=== PATIENT | female | born 1935 | race Caucasian/White ===

== ENCOUNTER 2024-03-03 14:27 | Inpatient (IN) | payer MEDICARE, OTHER, SELFPAY ==
[2024-03-03] VITALS (9 sets, daily range): BP systolic 96–164; BP diastolic 63–86; BMI 25.0; BMI 23.7
--- NOTE | 2024-03-03 11:07 | ED.GENMED ---
History of Present Illness
General
Chief Complaint: Rectal Bleeding
Time Seen by Provider: 03/03/24 10:54
Travel History
Have you had any contact with someone who has COVID-19?: No
Do you have any symptoms of coronavirus? Fever > 100 degrees, chills, cough, shortness of breath, sore throat, loss of taste or smell, muscle aches, or headache?: No
History of Present Illness
History of Present Illness:
HPI: The patient presents with painless rectal bleeding. This has been ongoing for the past 3 days. She is on Xarelto for atrial fibrillation. She thought her symptoms may be related to hemorrhoids however symptoms also occur before she even
wiped herself.
EXAM:
GENERAL: Well appearing in no distress
HEENT: Moist oral mucosa
CARDIOVASCULAR: No murmurs, normal heart rate, irregular rhythm
PULMONARY: No respiratory distress, breath sounds are clear and equal
ABDOMEN: Soft with no peritoneal signs, no tenderness, dried red blood noted on the underwear, no obvious significant external hemorrhoids, positive brownish-red stool
NEUROLOGIC: Excellent strength all extremities, no coordination deficits
PSYCHIATRIC: Appropriate mental status, normal insight and judgement
EXTREMITIES: Nontender, no edema, moves all extremities equally
SKIN: No rash, no lesions
TIME OF INITIAL ENCOUNTER: 11:05 AM
NUMBER AND COMPLEXITY OF PROBLEMS ADDRESSED AT THE ENCOUNTER
� Chronic conditions affecting care: On Xarelto for atrial fibrillation
� Acute Exacerbation and/or Progression of Chronic Illness: This is an acute problem
� Differential Diagnosis includes: Diverticular bleeding, hemorrhoidal bleeding, upper GI bleeding much less likely given the description of the bleeding
AMOUNT AND/OR COMPLEXITY OF DATA TO BE REVIEWED AND ANALYZED
� I performed an independent evaluation of and my interpretation is:
EKG: A-fib 67, leftward axis
CT: CTA shows active extravasation which is a small amount in the distal colon
X-rays:
Laboratory Studies: White count 6.2, hemoglobin 11.2, platelets 210,
Other:
� Review of other/old records: Last year hemoglobin was 12.8 however in the past her hemoglobin has actually lower than it was today as well
� Clinical information was obtained by an independent historian: None needed
� Prescriptions/Medications Considered but not given:
� Further testing considered but not performed:
RISK OF COMPLICATIONS AND/OR MORBIDITY OR MORTALITY OF PATIENT MANAGEMENT
� Social determinants of health affecting care: Patient resides at [facility]
� Discussion with other providers: Hospitalist for admission; I also spoke with Dr. Argueta who agrees with holding off on Kcentra and we will obviously hold the Xarelto
� Escalation of care including admission/observation vs risk of discharge considered: Patient presents with rectal bleeding on Xarelto. She is hemodynamically stable, hemoglobin nearly a year ago was 12.8 and currently is 11.2
however this is still near her baseline. She denies any pain.
Past History
Past History
ED Past Medical History: Arrthythmia, HTN and Other (DIVERTICULOSIS, tonic A. fib on Xarelto status post left humerus ORIF, syncope, hypertension, chronic hearing loss, cataracts)
Social History
Tobacco: Non-smoker
Alcohol: None
Drug: None
Personal:
Living: assisted living
Family History
Family History: Negative Diabetes, Hypertension or CAD
Phy Exam
Physical Exam
Physical Exam:
See HPI
Course
Orders/Labs/Results
Orders:
Orders
03/03/24 11:05
CT Angio Abd/Pelvis w/wo IV [CT Abd/pelvis Angio W/wo Iv] Urgent
Comment:
Reason For Exam: recurring frequent rectal bleeding on xarelto
03/03/24 11:10
Electrocardiogram (*1) Urgent
Reason for Study: Atrial Fibrillation
EKG- Treatment ONCE
03/03/24 11:11
Type+Screen Urgent
Complete Blood Count/With Diff Urgent
Comprehensive Metabolic Panel Urgent
03/03/24 14:06
Admit/Transfer Patient As Directed
Co-Sign Provider:
Level of Care: Inpatient admission
Assign to:: Medical/Surgical
Physician / Group: chela isbell
Diagnosis: Rectal bleeding on Xarelto
Reason for Hospitalization: Rectal bleeding on Xarelto
Expected length of stay greater than two midnights?: Yes
ELOS- Estimated Length of Stay in days: 3
I certify the patient meets the requirements for IP care: Yes
Code Status As Directed
Resuscitation Status: Do not resuscitate
Reached after discussion with pt or family/Healthcare POA: Yes
Based on pt advanced directive or healthcare POA form: Yes
Decision communicated with: Per patient
Consult Colorectal Surgery [ColoRectal Surgery Consult] Routine
Consulting Provider: Parminder Argueta
Was physician already notified: Yes
Reason for consult: Rectal bleeding on Xarelto
03/03/24 14:07
DNR Bracelet Application ONCE
03/03/24 Dinner
Clear Liquid
At Your Request: Full Participation
03/03/24 15:17
carboxymethylcellulose sodium 1 drop BOTH EYES DAILYPRN PRN
03/03/24 15:17
Activity As Directed
Activity Level: With Assistance
Comment: Uses rollator at baseline
Intake/ Output As Directed
Frequency: Per unit guidelines
Pneumatic Compression Sleeves As Directed
Type: Knee high
Vital Signs As Directed
Frequency: Per unit guidelines
Ot Eval And Treat Routine
Pt Eval And Treat Routine
Activity Level: As Tolerated
DX Deep Vein Thrombosis Video Routine
03/04/24 06:00
Basic Metabolic Panel IN AM
Complete Blood Count/With Diff IN AM
03/04/24 08:00
Atorvastatin [Lipitor] 10 mg PO DAILY
Bifidobacterium infantis [Align] 4 mg PO DAILY
Diltiazem Extended Release [Cardizem Cd] 120 mg PO DAILY
Furosemide [Lasix] 20 mg PO Q48H
03/05/24 06:00
Basic Metabolic Panel IN AM
Complete Blood Count/With Diff IN AM
Abnormal Lab Results
03/03/24
11:11
RBC 3.89 L 10^6/uL
(4.20-5.40)
Hgb 11.2 L g/dL
(12.0-16.0)
Hct 32.8 L %
(37.0-47.0)
RDW 15.0 H %
(11.5-14.5)
Monocytes % 9.6 H %
(1.7-9.3)
BUN 18 H mg/dl
(7-17)
03/03/24 11:11
03/03/24 11:11
Vital Signs
Initial and Last Documented VS:
Initial Vital Signs
Temp Resp
98.4 F 16
03/03/24 10:52 03/03/24 10:52
Last Documented Vital Signs
Temp Pulse Resp BP Pulse Ox
98.4 F 60 14 146/68 97
03/03/24 10:52 03/03/24 14:40 03/03/24 13:18 03/03/24 14:00 03/03/24 14:30
*Critical Care Note
Total Time (30-74mins, 75-104mins- exclusive of procedures): Not Applicable
ED Attending Note
-
Portions of this chart may have been created with voice recognition software.� Occasional wrong word or��sound alike� substitutions may have occurred due to the inherent limitations of voice recognition software.
Discharge Plan
Departure
Patient Disposition: Admit
Date of Disposition: 03/03/24
Time of Disposition: 13:38
Presentation/result/management discussed w/ accepting MD/DO: Hospitalist
Discharge Problem:
Acute lower gastrointestinal bleeding
Interventions
Interventions:
*Risk Screen - Suicide Last Done: 03/03/24 10:52
*General Assessment Last Done: 03/03/24 10:52
*Neglect/Abuse Screening Last Done: 03/03/24 10:52
ED- Fall Risk Assessment Last Done: 03/03/24 10:52
*ED COVID-19 Vaccine History Last Done: 03/03/24 10:52
*Nursing Disposition Last Done: 03/03/24 15:30
PF-Rhlkqh-Rrjjeuonud Assessment Last Done: 03/03/24 10:52
ED- Cardiac Assessment Last Done: 03/03/24 10:52
ED- Pulmonary Assessment Last Done: 03/03/24 10:52
Discharge Date and Time
Discharge Date/Time: 03/03/24 15:30
[2024-03-03 11:19] LABS: % Eosinophils 4.2 % (0-6); % Immature Granulocytes 0.2 % (0-0.5); % Lymphocytes 25.6 % (20.5-51.1); % Monocytes 9.6 % (1.7-9.3); % Neutrophils 59.4 % (42.2-75.2); Absolute Basophils 0.1 10^3/uL (0-0.2); Absolute Eosinophils 0.3 10^3/uL (0-0.7); Absolute Lymphocytes 1.6 10^3/uL (1.2-3.4); Absolute Monocytes 0.6 10^3/uL (0.1-0.6); Absolute Neutrophils 3.7 10^3/uL (1.4-6.5); Hematocrit 32.8 % (37.0-47.0); Hemoglobin 11.2 g/dL (12.0-16.0); Mean Corp Hgb Conc. 34.1 g/dL (33.0-37.0); Mean Corpuscular Hgb 28.8 pg (27.0-31.0); Mean Corpuscular Volume 84.3 fL (81.0-99.0); Mean Platelet Volume 8.6 fL (7.4-10.4); Nucleated Red Blood Cells % 0 %; Platelet Count 210 10^3/uL (130-400); Red Blood Cell Count 3.89 10^6/uL (4.20-5.40); White Blood Cell Count 6.2 10^3/uL (4.8-10.8)
[2024-03-03 11:50] LABS: ALT (SGPT) 12 U/L (0-35); AST (SGOT) 22 U/L (14-36); Albumin 3.6 g/dl (3.5-5.0); Alkaline Phosphatase 93 U/L (38-126); Blood Urea Nitrogen 18 mg/dl (7-17); Carbon Dioxide 28 mmol/L (22-30); Chloride 100 mmol/L (98-107); Estimated Creatinine Clearance 53 ml/min; Glucose 97 mg/dl (70-99); Potassium 4.4 mmol/L (3.5-5.1); Sodium 136 mmol/L (135-145); Total Bilirubin 0.8 mg/dl (0.2-1.3); Total Protein 6.8 g/dl (6.3-8.2); eGFR > 60.00
--- NOTE | 2024-03-03 13:38 | HPS.HSE ---
Addendum entered and electronically signed by Perez Roper MD 03/03/24 15:41:
seen and examined the patient
Had bleeding for 3 days, Still took Xarelto.
No dizziness, chest pain or shortness of breath. No abdominal pain.
I saw and examined the patient.
The SALES REPRESENTATIVE or PA's note was reviewed and I agree with the note.
Comment: CVS: S1-S2 normal
Chest: CTA B/L
Abdomen: Soft, NT / Bowel sounds present
Extremities: No edema, normal pulses
CRISIS MANAGER: Non focal exam
Rectal bleeding-today secondary to hemorrhoidal-internal
Hold Xarelto
Colorectal surgery evaluation appreciated
Monitor hemoglobin
Clears
Consider Anusol tomorrow
Called son, he says she has had on and off diarrhea for a while
will get stool studies
D/W RN at bed side
Original Note:
Family Physician
-
Family Physician: Wale Chang
Chief Complaint
-
Rectal bleeding
History of Present Illness
88 Year old female from [facility] living with bright red rectal bleeding x 2 days. The patient reports yesterday she had 2 episodes of bright liquid blood while attempting to have a bowel movement. She denies any stool with that at that
time. Today she states she had a very large solid bowel movement then it was preceded by liquid bright red blood. The pt is on xarelto for Afib. She reports taking her Xarelto yesterday evening 03/02/2024. She denies headache, lightheadedness
fever, chills, abd pain, nausea, vomiting, chest pain, palpitations, sob, cough, urinary symptoms.
She has past medical history of permanent Afib on xarelto, HTN ,DIVERTICULOSIS, status post left humerus ORIF, syncope, chronic hearing loss, cataracts chronic ambulatory dysfunction uses rollator at baseline
Medical History
Past Medical History
Past Medical History: Reports Arrhythmia (A. fib), GERD, HTN and Other (chronic hearing loss, cataracts, diverticulosis, skin CA, chronic ambulatory dysfunction uses Rollator at baseline)
Past Surgical History: Reports Gynocological (D&C), Orthopedic (ORIF left humerus, bilateral knee cartilage removal ) and Other (Cataract extraction )
Social History
Tobacco: Non-smoker
Alcohol: None
Drug: None
Personal:
Living: Jail ([facility])
Employment: Retired
Family History
Family History: Other (Mother age 89 old age prior history of stroke father age 89 old age)
Allergies / Home Medications
Allergies reflects when Allergies were last updated in [employer].
Home Medications with original date entered in [employer]
Allergy/Medication List:
Allergies
Allergy/AdvReac Type Severity Reaction Status Date / Time
latex Allergy Rash Verified 11/30/22 07:07
Home Medications
Bifidobacterium infantis 4 mg capsule (Align) 4 mg PO DAILY Gastrointestinal Issue 03/03/24
atorvastatin 10 mg tablet 10 mg PO DAILY High Cholesterol 03/03/24
carboxymethylcellulose sodium 1 % eye liquid gel drops 1 drp BOTH EYES DAILYPRN PRN dry eyes 03/03/24
diltiazem HCl 120 mg capsule,extended release 24 hr 120 mg PO DAILY Arrhythmia 03/03/24
furosemide 20 mg tablet 20 mg PO Q48H@0800 Fluid Retention/Swelling 03/03/24
rivaroxaban 20 mg tablet (Xarelto) 20 mg PO QPM Blood Clot Prevention/Tx 03/03/24
Review of Systems
-
History Source: Patient
A 12 point ROS was completed and negative except as noted: Yes
Constitutional: Denies Fever or Chills
EENT: Denies Sore Throat or Runny Nose
Respiratory: Denies Cough or Trouble Breathing
Cardiac: Denies Chest Pain, Diaphoresis, Palpitations or Syncope
Abdomen/GI: Reports Bloody Stools (Bright red x 3 episodes); Denies Abdominal Pain, Nausea, Vomiting, Diarrhea or Constipated
: Denies Dysuria, Frequency, Flank Pain, Incontinence, Difficulty Voiding or Urgency
Musculoskeletal: Denies Joint Pain or Edema
Skin: Denies Itching or Rash
Neurological: Denies Dizzy, Headache or Weakness
Endocrine: Reports No Symptoms
Hematologic/Lymphatic: Reports No Symptoms
Psych: Reports Calm
Physical Exam
Vital Signs
Vital Signs
Temp Pulse Resp BP Pulse Ox
98.4 F 58 14 124/82 97
03/03/24 10:52 03/03/24 13:18 03/03/24 13:18 03/03/24 13:00 03/03/24 13:15
Physical Exam
General: No Apparent Distress, Comfortable and Conversant; No Pain, Fever or Chills
HEENT: NormoCephalic, Anicteric, Moist mucous membranes, PERRLA, [place] Conjunctivae and No Ptosis
Respiratory: Clear; No Wheezes, Rales or Rhonchi
Cardiac: S1/S2 and Irregular Rhythm (A-fib 67 bpm); No Murmur, Rub, Gallop or Peripheral Edema
Breast: Deferred by me
GI: Soft, Non Tender, Non Distended, Normal Bowel Sounds and No Hepatosplenomegaly
Rectal: Hem Positive (Reddish-brown stool per ER)
Genito-urinary: Deferred by me
Musculoskeletal: No Clubbing, No Cyanosis and No Edema
Skin: Warm and Dry; No Rash
Neuro: AO x 3, No Motor Deficits, Nonfocal/grossly intact, Cranial Nerves Intact and No Sensory Deficits; No Slurred Speech, Facial Droop or Tremors
Psych: Calm
Laboratory Results
-
03/03/24 11:11
03/03/24 11:11
Laboratory Results
Total Bilirubin 0.8 mg/dl (0.2-1.3) 03/03/24 11:11
AST 22 U/L (14-36) 03/03/24 11:11
ALT 12 U/L (0-35) 03/03/24 11:11
Alkaline Phosphatase 93 U/L (38-126) 03/03/24 11:11
Data Reviewed
-
CT Scan: Report Reviewed by me
Lab Data: Labs Reviewed by me
Impression/Plan
-
Impression/plan:
Admit to Med surg
#Rectal bleeding with extravasation in distal rectum possibly 2/2 to Internal hemorrhoids
- hgb 11.2
- Hold Xarelto
- consult [facility] rectal surgery -Dr. Argueta aware
-Clear liquid diet
-CBC in a.m.
-Monitor for any additional rectal bleeding
-PT/OT/case management consult
CtA abdomen /pelvis
1. Small volume active contrast extravasation along the distal rectum as above, probably related to internal hemorrhoids.
2.. Advanced calcific atherosclerotic changes of the aorta and major branches without aneurysmal dilation. 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
3. Bilateral renal cysts and probable cysts.
4. Diverticulosis without diverticulitis.
5. 4 cm simple fluid attenuation right adnexal cyst. There was a right adnexal cyst present, slightly smaller, on the February 2013 examination.
If there is clinical concern, could be further evaluated with follow-up pelvic ultrasound.
#Afib permanent
-cont Cardizem 120 mg daily
- Hold Xarelto
EKG: Afib 67 bpm, qtc 426 ms
2D echo 06/27/2021 : EF 55 to 60%, normal LVS, LVSF, no wall abnormalities, mild dilated left atrial size, trace aortic regurg, moderate TR
#Htn - benign
-cont cardizem 120 mg daily, furosemide 20 mg every 48 H
#HLD
- cont atorvastatin 10 mg daily
#Gerd
- no reported meds
#Diverticulosis hx
-Continue align 4 mg daily
#Chronic ambulatory dysfunction
- uses rollator at baseline
dvt prop
- scd's hold current Xarelto
Full code
--- NOTE | 2024-03-03 14:03 | CON.CRS ---
Consultation
-
Date/Time Consultation Requested: 03/03/2024, 13:30
Date/Time Consultation Performed: 03/03/2024, 14:20
Requesting Provider: Lambert Dillard MD
Performing Provider: Parminder Argueta MD
Reason for Consultation: rectal bleeding
Medical History
-
Chief Complaint: rectal bleeding
History of Present Illness:
88 yo female with a PMH of afib on Xarelto presents to the ER due to rectal bleeding for two days. This occurred when attempting to have a bowel movement. Today she had a large stool which caused a significant amount of blood, which promoted her to
come to the ER. Her last dose of Xarelto was yesterday 03/02/24 PM. She states she has never had bleeding like this before. She may have had diverticulitis in the past, but she is not sure.
Her last colonoscopy was in [address] Bell which showed diverticulosis in the sigmoid colon and three polyps were removed.
In her ER, her hemoglobin is 11.2. CTA A/P shows small volume active contrast extravasation along the distal rectum as above, probably related to internal hemorrhoids and diverticulosis in the sigmoid colon. We have been consulted for further
surgical opinion.
Past Medical History
Past Medical History: Arrhythmias (afib), GERD, HTN and Other (chronic hearing loss, cataracts, diverticulosis, skin CA, chronic ambulatory dysfunction )
Past Surgical History: Gynecological (D&C) and Other (ORIF left humerus, bilateral knee cartilage removal , cataracts)
Social History
Tobacco: Non-Smoker
Alcohol: None
Drug: None
Living: Prison ([place])
Employment: Retired
Family History
Family History: Reviewed & Not Pertinent
Allergies / Home Medications
Allergy/AdvReac Type Severity Reaction Status Date / Time
latex Allergy Rash Verified 11/30/22 07:07
�Medication �Instructions �Recorded �Confirmed �Type
Bifidobacterium infantis 4 mg 4 mg PO DAILY Gastrointestinal 03/03/24 03/03/24 History
capsule (Align) Issue
atorvastatin 10 mg tablet 10 mg PO DAILY High Cholesterol 03/03/24 03/03/24 History
carboxymethylcellulose sodium 1 % 1 drp BOTH EYES DAILYPRN PRN dry 03/03/24 03/03/24 History
eye liquid gel drops eyes
diltiazem HCl 120 mg 120 mg PO DAILY Arrhythmia 03/03/24 03/03/24 History
capsule,extended release 24 hr
furosemide 20 mg tablet 20 mg PO Q48H@0800 Fluid 03/03/24 03/03/24 History
Retention/Swelling
rivaroxaban 20 mg tablet (Xarelto) 20 mg PO QPM Blood Clot 03/03/24 03/03/24 History
Prevention/Tx
Review of Systems
-
History Source: Patient
Abdomen/GI: Other (rectal bleeding)
A 10 point review of systems was completed, and was negative except as per HPI.
Physical Exam
Vital Signs
Temp 98.4 F 03/03/24 10:52
Pulse 58 03/03/24 13:18
Resp Rate 14 03/03/24 13:18
Blood pressure 124/82 03/03/24 13:00
SaO2 97 03/03/24 13:15
03/02/24 03/03/24 03/04/24
06:59 06:59 06:59
Actual Weight 70.2 kg
Body Mass Index (BMI) 25.0
Lab Results / Allergies
03/03/24 11:11
03/03/24 11:11
WBC 6.2 10^3/uL (4.8-10.8) 03/03/24 11:11
Hgb 11.2 g/dL (12.0-16.0) L 03/03/24 11:11
Hct 32.8 % (37.0-47.0) L 03/03/24 11:11
Plt Count 210 10^3/uL (130-400) 03/03/24 11:11
Abs Immat Gran (auto) 0.0 10^3/uL (0-0.05) 03/03/24 11:11
Neutrophils % 59.4 % (42.2-75.2) 03/03/24 11:11
Allergy/AdvReac Type Severity Reaction Status Date / Time
latex Allergy Rash Verified 11/30/22 07:07
Physical Exam
General: Well Developed, Well Nourished and No Apparent Distress
GI: Soft, Non Tender and Non Distended
Rectal: Other (External and some prolapsing internal hemorrhoids noted on exam, no blood on fingertip, no stool noted in rectal vault, no masses noted)
Skin: Warm and Dry
Neuro: AO x 3
Psych: Calm
Data Reviewed
-
Labs: Labs Reviewed by me, Discussed with Physician and Discussed with Patient
Old Records: Reviewed
Assessment / Plan
-
Assessment: 88 yo female with a PMH of afib on Xarelto with BRB per rectum x 2 days with external and prolapsing internal hemorrhoids found on exam.
Plan:
1. Hold Xarelto today.
2. NPO after midnight. If she continues to bleed, she may require an exam under anesthesia tomorrow in the OR with Dr. Argueta.
3. Eventual colonoscopy - she is due.
4. Will follow.
--- NOTE | 2024-03-03 17:04 | PTCARENOTE ---
Received patient from ED AAOx3. Pt CANTWE[place]. Pt oriented to room. Tolerated clear Liquids. Pt offered no complaints. Made patient comfortable. Cont to assess patient status.
[2024-03-04 05:34] LABS: % Basophils 1.3 % (0-2); % Eosinophils 7.8 % (0-6); % Immature Granulocytes 0.2 % (0-0.5); % Lymphocytes 27.9 % (20.5-51.1); % Monocytes 10.3 % (1.7-9.3); % Neutrophils 52.5 % (42.2-75.2); Absolute Basophils 0.1 10^3/uL (0-0.2); Absolute Eosinophils 0.4 10^3/uL (0-0.7); Absolute Lymphocytes 1.5 10^3/uL (1.2-3.4); Absolute Monocytes 0.6 10^3/uL (0.1-0.6); Absolute Neutrophils 2.9 10^3/uL (1.4-6.5); Hematocrit 32.6 % (37.0-47.0); Hemoglobin 10.9 g/dL (12.0-16.0); Mean Corp Hgb Conc. 33.4 g/dL (33.0-37.0); Mean Corpuscular Hgb 28.5 pg (27.0-31.0); Mean Corpuscular Volume 85.1 fL (81.0-99.0); Nucleated Red Blood Cells % 0 %; Platelet Count 202 10^3/uL (130-400); Red Blood Cell Count 3.83 10^6/uL (4.20-5.40); Red Cell Dist. Width 14.7 % (11.5-14.5); White Blood Cell Count 5.5 10^3/uL (4.8-10.8)
[2024-03-04 05:55] LABS: Blood Urea Nitrogen 11 mg/dl (7-17); Calcium 9.2 mg/dl (8.4-10.2); Carbon Dioxide 27 mmol/L (22-30); Chloride 100 mmol/L (98-107); Estimated Creatinine Clearance 53 ml/min; Glucose 95 mg/dl (70-99); Potassium 3.6 mmol/L (3.5-5.1); Sodium 135 mmol/L (135-145); eGFR > 60.00
[2024-03-04 07:25] VITALS: BP 149/75
[2024-03-04 08:11] VITALS: BP 149/75
[2024-03-04] MEDS: CARDIZEM CD 120 MG PO (09:30)
[2024-03-04] MEDS: LIPITOR 10 MG PO (09:31)
[2024-03-04] MEDS: VISBIOME 1 CAP PO (09:31)
[2024-03-04] MEDS: FLUSH (NSS) 1 FLUSH IV (09:31)
[2024-03-04] MEDS: LASIX 20 MG PO (09:31)
[2024-03-04 09:32] VITALS: BMI 23.7
--- NOTE | 2024-03-04 09:35 | W.PN.HOSP.TC ---
Addendum entered and electronically signed by Dawit Toscano MD 03/11/24 15:58:
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
Original Note:
Today's Communication/Plan
-
Follow for any further rectal bleeding. Follow H&H. Continue to hold Xarelto.
Advance diet per colorectal surgery.
PT OT eval
Assessment / Plan
Assessment / Plan
#Rectal bleeding with extravasation in distal rectum possibly 2/2 to Internal hemorrhoids
-Hemoglobin 10.9 which is not a significant drop. No further ongoing rectal bleeding.
-Appreciate colorectal surgery input. Following with conservative management. Continue with Anusol treatments.
- Hold Xarelto
- on Clear liquid diet. Will advance diet if no planned interventions.
-Monitor for any additional rectal bleeding
-PT/OT/case management consult
CtA abdomen /pelvis
1. Small volume active contrast extravasation along the distal rectum as above, probably related to internal hemorrhoids.
2.. Advanced calcific atherosclerotic changes of the aorta and major branches without aneurysmal dilation. 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
3. Bilateral renal cysts and probable cysts.
4. Diverticulosis without diverticulitis.
5. 4 cm simple fluid attenuation right adnexal cyst. There was a right adnexal cyst present, slightly smaller, on the February 2013 examination.
If there is clinical concern, could be further evaluated with follow-up pelvic ultrasound.
#Afib permanent
-cont Cardizem 120 mg daily
-Rate controlled
- Hold Xarelto
EKG on adx: Afib 67 bpm, qtc 426 ms
2D echo 06/27/2021 : EF 55 to 60%, normal LVS, LVSF, no wall abnormalities, mild dilated left atrial size, trace aortic regurg, moderate TR
#Htn - benign
-cont cardizem 120 mg daily, furosemide 20 mg every 48 H
#HLD
- cont atorvastatin 10 mg daily
#Gerd
- no reported meds
#Diverticulosis hx
-Continue align 4 mg daily
#Chronic ambulatory dysfunction
- uses rollator at baseline
dvt prop
- scd's hold current Xarelto
Full code
Anticipated Discharge: Within 24 hours
Subjective/Interval History
-
Date of Service: March 04, 2024
No further rectal bleeding. Feeling weak due to not being out of bed.
Denies any nausea vomiting. No abdominal pain.
No shortness of breath or chest pain.
Objective Data
-
Labs:
Laboratory Results
03/04/24
04:50
WBC 5.5
Hgb 10.9 L
Hct 32.6 L
Plt Count 202
Sodium 135
Potassium 3.6
Chloride 100
Carbon Dioxide 27
BUN 11
Creatinine 0.7
Glucose 95
Calcium 9.2
Vital Signs:
Vital Signs
Temp Pulse Resp BP Pulse Ox
97.3 F 62 16 149/75 95
03/04/24 07:25 03/04/24 09:30 03/04/24 07:25 03/04/24 09:30 03/04/24 07:25
I&O
03/03/24 03/04/24 03/05/24
06:59 06:59 06:59
Intake Total 300 / 300
Balance 300 / 300
Review of Systems
-
Constitutional: Denies Fever or Chills
EENT: Denies Sore Throat
Respiratory: Denies Cough
Neuro: Denies Dizzy
Physical Exam
-
General: No Apparent Distress
HEENT: Moist Mucous Membranes
Respiratory: Clear to Auscultation
Cardiac: Regular Rhythm and S1/S2
GI: Soft, Nontender, Nondistended and Normal Bowel Sounds
Neuro: AO x 3
Psych: Calm; Negative Confused
Data Reviewed
-
Labs: Labs Reviewed by me
[2024-03-04 09:49] VITALS: BP 168/75
[2024-03-04 09:54] VITALS: BP 161/85; PULSE 80
--- NOTE | 2024-03-04 10:32 | W.PN.CRS1 ---
Today's Communication / Plan
-
hold xarelto one more day
no plans for OR
resume diet
f/u as outpatient
Assessment/Plan
-
Assessment: 88 yo female with a PMH of afib on Xarelto with BRB per rectum x 2 days with external and prolapsing internal hemorrhoids found on exam.
Plan:
1. Hold Xarelto one more day, okay to resume tomorrow.
2. No plans for OR given bleeding as stopped. Will resume diet.
3. Eventual colonoscopy - she is due.
4. Follow up in the office as an outpatient with Dr. Argueta. Discussed with patient. Will s/o, please contact us if further issues arise.
Subjective Data
Subjective Data
Date of Service: March 04, 2024
Patient states she has no further rectal bleeding. She denies rectal or abdominal pain. She has no complaints.
Objective Data
-
Vital Signs
Temp Pulse Resp BP Pulse Ox
97.3 F 62 16 149/75 95
03/04/24 07:25 03/04/24 09:30 03/04/24 07:25 03/04/24 09:30 03/04/24 07:25
Intake & Output
03/03/24 03/04/24 03/05/24
06:59 06:59 06:59
Intake Total 300 / 300
Balance 300 / 300
Intake:
Oral fluids 300 / 300
Other:
How many times incontinent 2
SATURATED amount urine
Lab Results
03/04/24 04:50
03/04/24 04:50
Physical Exam
-
General: No Acute Distress and AOx3
Abdomen: Soft, Non Distended and Non Tender
Skin: Warm and Dry
--- NOTE | 2024-03-04 10:37 | CM ---
Addendum entered by Manuela Luis 03/04/24 15:38:
referral made to [facility] for home physical therapy.hali is being dc home today.she will call either her son or [facility] to transport her home.patient signed imm letter.
Original Note:
met with patient at bedside.patientlives [place] in [facility] at [facility].she amb with a rw and needs assistance bathing. she has a sales vendor who comes weekly to assist with bathing.her son daisy east has poa.her pcp is dr belia villareal and she uses [facility].
patient with a past hx of afib on xarelto,htn,hld is adm with rectal bleeding.patient had a cta,eval by colorectal surgery.holding xarelto monitoring,hgb 10.9,on clears and advnce diet.seen by therapy who rec home pt.left vmm with keaton ruiz
wellness nurse at [facility] to find out who they uses for pt and whetr script is needed.plan home with home pt.
--- NOTE | 2024-03-04 15:25 | W.DS.TRANS ---
DC Summary - Desk Assistant
-
Discharge Instructions:
Discharge Diagnosis/Procedures rectal bleed suspected hemorrhoidal
Diet 2 Gram Sodium
Activity As tolerated
Driving Restrictions As prior to admission
Bathing Restrictions None
Instructions:
Stand-Alone Forms:
Changes to Home Medications: No
Discharge Medications:
DC Medications w/original date entered in [email or web address]
Bifidobacterium infantis 4 mg capsule (Align) 4 mg PO DAILY Gastrointestinal Issue 03/03/24
atorvastatin 10 mg tablet 10 mg PO DAILY High Cholesterol 03/03/24
carboxymethylcellulose sodium 1 % eye liquid gel drops 1 drp BOTH EYES DAILYPRN PRN dry eyes 03/03/24
diltiazem HCl 120 mg capsule,extended release 24 hr 120 mg PO DAILY Arrhythmia 03/03/24
furosemide 20 mg tablet 20 mg PO Q48H@0800 Fluid Retention/Swelling 03/03/24
rivaroxaban 20 mg tablet (Xarelto) 20 mg PO QPM Blood Clot Prevention/Tx 03/03/24
Home Medication Changes
Pending Results: No
--- NOTE | 2024-03-04 15:59 | VNURNOTE ---
Home Health Liaison met with patient at 1530 to discuss [facility] nurse/therapy, visits, schedule and homebound status. Patient is agreeable and understands that visits at home will be 2-3 x per week to assess and teach medical management.
[facility] brochure provided with contact information. Patient is aware that [facility] will contact her for start of care in 1-2 days after discharge from .
[facility] referral completed in [facility].
[2024-03-04 16:21] VITALS: BMI 23.7
[2024-03-04 16:28] VITALS: BP 114/68
--- NOTE | 2024-03-04 17:43 | W.DCSUMMARY ---
Discharge Summary
Discharge Data
Date of Admission: 03/03/24
Date of Discharge: 03/04/24
-
Pending Results: No
Hospital Course
Primary diagnosis:
Rectal bleeding with extravasation in distal rectum possibly 2/2 to Internal hemorrhoids
Secondary diagnosis:
Atrial fibrillation- permanent
Essential pretension
Hyperlipidemia
History of diverticulosis
Hospital course:
88-year-old female on Xarelto for A-fib presented with rectal bleeding for 3 days. She had no abdominal pain or nausea vomiting. She was hemodynamically stable. CT angiogram showed a blush in the lower rectum with likely hemorrhoidal source. Was
seen by colorectal surgery-digital exam of rectum showed mild prolapsing internal hemorrhoids. No blood staining externally noted. Digital exam of the rectum regular revealed normal tone and no obvious gross blood.
She had no further episodes in the hospital and her H&H was stable. She was put back on diet which she was tolerating. No need for surgical intervention at this point. Could resume anticoagulants after tomorrow.
Consultants on board:
Colorectal surgery-Brain Parikh
Discharge Plan
-
Patient Disposition: Home (Routine Discharge)
Discharge Diagnosis/Procedures: rectal bleed suspected hemorrhoidal
Diet: 2 Gram Sodium
Activity: As tolerated
Driving Restrictions: As prior to admission
Bathing Restrictions: None
Referrals:
Parminder Argueta MD [Active] - in three to four days (Will also need a colonoscopy)
Wale Chang MD [Family Provider] - in less than 1 week
Additional Discharge Medication Instructions: You will need to schedule a colonoscopy when you see Dr. Argueta, as you are due.
Prescriptions:
Continued
atorvastatin 10 mg Tablet
10 mg PO DAILY
diltiazem HCl 120 mg capsule,extended release 24hr
120 mg PO DAILY
furosemide 20 mg Tablet
20 mg PO Q48H@0800
carboxymethylcellulose sodium 1 % Drops, Liquid Gel
1 drp BOTH EYES DAILYPRN PRN (Reason: dry eyes)
Align 4 mg Capsule
4 mg PO DAILY
Held
Xarelto 20 mg Tablet
20 mg PO QPM
Hold Instructions: Resume on 03/06/24.
Discharge Orders:
Discharge Patient (As Directed); Ordered 03/04/24
Ordered By: Dawit Toscano
Discharge Date and Time
Discharge Date/Time: 03/04/24 17:37
Print Language: COLOMBIAN
--- NOTE | 2024-03-07 16:03 | PN.CDI ---
CDI
- -
CDI:
Physician Documentation Request
Admit Date: 03/03/24 14:27
Dear Doctor Everton,
Please review the following and provide your response in the progress notes.
Clinical Indicators:
03/04 assessment, Patient meets the ASPEN/AND criteria for Severe Protein Calorie Malnutrition based on >10% weight loss in 6 months and evidence of severe SQ loss over orbitals and Severe muscle loss over Clavicles and temporal bones.
Based on the information, which of the following most accurately represents the patient's nutritional status?
Severe malnutrition
Other (please specify)Unable to determine
[place] Criteria ([facility] Hospitalist 2017)
2 or more criteria must be present for either
non severe or severe malnutrition
Note that the criteria differs related to the
presence of an acute or chronic illness
Acute Illness Chronic Illness
Energy Intake Non Severe: <75% for >7 days Non Severe: <75% for >1 month
Severe: <50% for >5 days Severe: <75% for >1 month
Weight Loss Non Severe: 1-2% over 1 week Non Severe: 5% over 1 month
5% over 1 month 7.5% over 3 months
7.5% over 3 months 10% over 6 months
1 year N/A 20% over 1 year
Severe: >2% over 1 week Severe: >5% over 1 month
>5% over 1 month >7.5% over 3 months
>7.5% over 3 months >10% over 6 months
1 year N/A >20% over 1 year
Body Fat Non Severe: Mild Decrease Non Severe: Mild Loss
Severe: Moderate Decrease Severe: Severe Loss
Muscle Mass Non Severe: Mild Decrease Non Severe: Mild Loss
Severe: Moderate Decrease Severe: Severe Loss
Fluid Accumulation Non Severe: Mild Accumulation Non Severe: Mild Accumulation
Severe: Moderate to severe Severe: Moderate to severe
accumulation accumulation
Reduced Healthcare Business Analyst Strength Non Severe: N/A Non Severe: N/A
Severe: Measurably reduced Severe: Measurably reduced
Additional criteria that can be used to Determine if Mild or Moderate Malnutrition (Merck Manual 2018)
Mild Moderate Severe
Albumin gm/dl <3.0 gm/dl <2.5 gm/dl <2.0 gm/dl
Pre Albumin mg/dl <15 gm/dl <10 mg/dl <5.0 mg/dl
BMI <18.5 <17 <16
Use of terms such as suspected, likely, concern for, or probable (associated with a specific diagnosis that is being evaluated, monitored, or treated as if it exists) are acceptable and can be coded in the inpatient setting, when documented at the
time of discharge.
Thank you,
Maria Elena Cerrato
CDI Specialist
Please use your independent medical judgment in providing your response.
== END 2024-03-04 17:37 | disposition home health service (06) | DRG 377 ==
LOC: 4 EAST ACU 14:27
PROVIDERS: Clinical Nurse Specialist Family Health; ADMITTING PHYSICIAN Hospitalist; ATTENDING PHYSICIAN Internal Medicine; CONSULT PHYSICIAN Surgery; EMERGENCY PHYSICIAN Emergency Medicine; FAMILY PHYSICIAN Family Medicine
DX: K62.5 Hemorrhage of anus and rectum (principal); E43 Unspecified severe protein-calorie malnutrition; I48.21 Permanent atrial fibrillation; K64.8 Other hemorrhoids; I10 Essential (primary) hypertension; H91.90 Unspecified hearing loss, unspecified ear; K57.30 Diverticulosis of large intestine without perforation or abscess without bleeding; R26.2 Difficulty in walking, not elsewhere classified; K21.9 Gastro-esophageal reflux disease without esophagitis; E78.00 Pure hypercholesterolemia, unspecified; K64.4 Residual hemorrhoidal skin tags; Z66 Do not resuscitate; Z79.01 Long term (current) use of anticoagulants; Z91.040 Latex allergy status; Z68.23 Body mass index [BMI] 23.0-23.9, adult
CPT/HCPCS: 74174; 80048; 80053; 85025; 86850; 86900; 86901; 93005; 97162; 97166; 99285; Q9967

== ENCOUNTER 2024-05-08 14:54 | Emergency (ER) | payer MEDICARE, OTHER, SELFPAY ==
[2024-05-08] VITALS (9 sets, daily range): BP systolic 111–156; BP diastolic 52–95; PULSE 73–89; BMI 24.4
[2024-05-08 15:20] LABS: % Eosinophils 3.3 % (0-6); % Immature Granulocytes 0.3 % (0-0.5); % Lymphocytes 25.3 % (20.5-51.1); % Monocytes 8.9 % (1.7-9.3); % Neutrophils 61.2 % (42.2-75.2); Absolute Basophils 0.1 10^3/uL (0-0.2); Absolute Eosinophils 0.2 10^3/uL (0-0.7); Absolute Lymphocytes 1.7 10^3/uL (1.2-3.4); Absolute Monocytes 0.6 10^3/uL (0.1-0.6); Absolute Neutrophils 4.1 10^3/uL (1.4-6.5); Hematocrit 34.1 % (37.0-47.0); Hemoglobin 11.6 g/dL (12.0-16.0); Mean Corpuscular Hgb 28.4 pg (27.0-31.0); Mean Corpuscular Volume 83.4 fL (81.0-99.0); Mean Platelet Volume 8.5 fL (7.4-10.4); Nucleated Red Blood Cells % 0 %; Platelet Count 242 10^3/uL (130-400); Red Blood Cell Count 4.09 10^6/uL (4.20-5.40); Red Cell Dist. Width 15.2 % (11.5-14.5); White Blood Cell Count 6.8 10^3/uL (4.8-10.8)
[2024-05-08 15:31] LABS: ALT (SGPT) 13 U/L (0-35); AST (SGOT) 21 U/L (14-36); Albumin 4.2 g/dl (3.5-5.0); Alkaline Phosphatase 96 U/L (38-126); Blood Urea Nitrogen 18 mg/dl (7-17); Calcium 9.2 mg/dl (8.4-10.2); Carbon Dioxide 28 mmol/L (22-30); Chloride 97 mmol/L (98-107); Estimated Creatinine Clearance 40 ml/min; Glucose 131 mg/dl (70-99); Potassium 3.9 mmol/L (3.5-5.1); Sodium 137 mmol/L (135-145); Total Bilirubin 0.8 mg/dl (0.2-1.3); Total Protein 7.1 g/dl (6.3-8.2); eGFR > 60.00
[2024-05-08] MEDS: NSS 500 IV (16:54)
--- NOTE | 2024-05-08 17:48 | ED.GENMED ---
History of Present Illness
General
Chief Complaint: Dizziness
Source: patient
Time Seen by Provider: 05/08/24 16:10
History of Present Illness
History of Present Illness:
-year-old female brought to the emergency room from [facility] for evaluation of dizziness. Patient resides at [facility] and had going out to lunch. Her son was visiting with her. She wants to walk back to her room when she began feeling dizzy. She
told her since she needed to sit down. The chair was brought and the medical personnel were called to evaluate the patient. 911 was called to bring her to the hospital for further evaluation. Patient denies any chest pain, shortness of breath,
nausea or vomiting. She described feeling a sensation of lightheadedness but no vertigo per se. Currently the patient is asymptomatic. She did not have any chest pain or palpitations at that time.
Past History
Past History
ED Past Medical History: Arrthythmia, HTN and Other (DIVERTICULOSIS, tonic A. fib on Xarelto status post left humerus ORIF, syncope, hypertension, chronic hearing loss, cataracts)
Social History
Tobacco: Non-smoker
Alcohol: None
Drug: None
Personal:
Living: assisted living
Family History
Family History: Negative Diabetes, Hypertension or CAD
Phy Exam
Physical Exam
Physical Exam:
General: Awake, Alert, Oriented X3. No acute distress.
Vitals: Mildly bradycardic
Head: Atraumatic
Eyes: Pupils equal, EOMI
Throat: Airway intact, no exudates
Neck: Trachea midline
Lungs: Clear and equal b/l
Heart: Regular rate, no murmurs
Abd: Soft, Nontender, No pulsatile mass
Neuro: Nonfocal
Skin: Warm, dry, no rash
Extremities: pulses equal b/l, no edema
Course
Orders/Labs/Results
Orders:
Orders
05/08/24 14:55
EKG [Electrocardiogram (*1)] Urgent
Reason for Study: Tachycardia
Urinalysis Reflex To Culture Urgent
Date Specimen was Collected: 05/08/24
Time Specimen was Collected: 14:56
05/08/24 14:56
EKG- Treatment ONCE
05/08/24 15:07
Complete Blood Count/With Diff Urgent
Comprehensive Metabolic Panel Urgent
05/08/24 16:45
0.9% Sodium Chloride 500 ml [Nss] 500 ml IV BOLUS
Abnormal Lab Results
05/08/24
15:07
RBC 4.09 L 10^6/uL
(4.20-5.40)
Hgb 11.6 L g/dL
(12.0-16.0)
Hct 34.1 L %
(37.0-47.0)
RDW 15.2 H %
(11.5-14.5)
Chloride 97 L mmol/L
(98-107)
BUN 18 H mg/dl
(7-17)
Glucose 131 H mg/dl
(70-99)
05/08/24 15:07
05/08/24 15:07
Vital Signs
Initial and Last Documented VS:
Initial Vital Signs
Temp Pulse Resp BP Pulse Ox
97.3 F 57 14 128/59 96
05/08/24 14:56 05/08/24 14:56 05/08/24 14:56 05/08/24 14:56 05/08/24 14:56
Last Documented Vital Signs
Temp Pulse Resp BP Pulse Ox
97.3 F 89 18 156/95 98
05/08/24 14:56 05/08/24 17:45 05/08/24 17:45 05/08/24 17:45 05/08/24 17:50
MDM/Problems Addressed
Differential Diagnosis Includes:
dehydration, anemia, hyponatremia, dysrythmia
MDM/Problems Addressed:
Patient presents after having an episode of dizziness. Patient has no symptoms now. She also noted that she has not consumed much liquids today. Of note the patient has a bright red blood per rectum with bowel movements. This sounds to be
hemorrhoidal. Patient's hemoglobin is actually higher today than it was during a recent hospitalization. Patient was found to have bleeding hemorrhoids. I suspect that she is having some intermittent bleeding from hemorrhoids but does not appear
to be significant enough to justify hospitalization. She already has a plan to follow-up with colorectal surgery as an outpatient.
*Pulse Oximetry
Patient hypoxic: no
*EKG
Interpretation: abnormal
Heart Rate: 55
Rate: bradycardiac
Rhythm: a-fib
Ischemia: non-specific ST changes
*Critical Care Note
Total Time (30-74mins, 75-104mins- exclusive of procedures): Not Applicable
ED Attending Note
-
Portions of this chart may have been created with voice recognition software.� Occasional wrong word or��sound alike� substitutions may have occurred due to the inherent limitations of voice recognition software.
Discharge Plan
Departure
Patient Disposition: Home (Routine Discharge)
Date of Disposition: 05/08/24
Time of Disposition: 17:48
Patient with high blood pressure during this ER visit?: No
Condition: Good
Discharge Problem:
Dizziness, Acute dehydration
Instructions: Dizziness
Prescriptions:
No Action
atorvastatin 10 mg Tablet
10 mg PO DAILY
diltiazem HCl 120 mg capsule,extended release 24hr
120 mg PO DAILY
furosemide 20 mg Tablet
20 mg PO Q48H@0800
carboxymethylcellulose sodium 1 % Drops, Liquid Gel
1 drp BOTH EYES DAILYPRN PRN (Reason: dry eyes)
Align 4 mg Capsule
4 mg PO DAILY
Xarelto 20 mg Tablet
20 mg PO QPM
Referrals:
Wale Chang MD [Family Provider] -
Activity Restrictions/Additional Instructions:
Try to drink 6 to 8 glasses of liquid a day to maintain hydation
Interventions
Interventions:
*Risk Screen - Suicide Last Done: 05/08/24 14:56
*General Assessment Last Done: 05/08/24 14:56
*Neglect/Abuse Screening Last Done: 05/08/24 14:56
ED- Fall Risk Assessment Last Done: 05/08/24 14:56
*ED COVID-19 Vaccine History Last Done: 05/08/24 14:56
ED- Neurological Assessment Last Done: 05/08/24 15:04
ED- Cardiac Assessment Last Done: 05/08/24 15:05
ED Swallowing Screen Last Done: 05/08/24 16:40
Discharge Date and Time
Print Language: MACEDONIAN
== END 2024-05-08 18:15 | disposition home or self-care (01) ==
LOC: EMR 14:54
PROVIDERS: EMERGENCY PHYSICIAN Emergency Medicine; FAMILY PHYSICIAN Family Medicine
DX: R42 Dizziness and giddiness (principal); E86.0 Dehydration; I10 Essential (primary) hypertension; I48.91 Unspecified atrial fibrillation; Z79.01 Long term (current) use of anticoagulants
CPT/HCPCS: 99283; 80053; 85025; 93005

== ENCOUNTER 2024-06-07 03:32 | Inpatient (IN) | payer MEDICARE, OTHER, SELFPAY ==
[2024-06-06 20:40] VITALS: BP 152/94
[2024-06-06 21:14] LABS: % Basophils 0.8 % (0-2); % Eosinophils 1.3 % (0-6); % Immature Granulocytes 0.3 % (0-0.5); % Lymphocytes 16.1 % (20.5-51.1); % Neutrophils 73.5 % (42.2-75.2); Absolute Basophils 0.1 10^3/uL (0-0.2); Absolute Eosinophils 0.1 10^3/uL (0-0.7); Absolute Lymphocytes 1.5 10^3/uL (1.2-3.4); Absolute Monocytes 0.7 10^3/uL (0.1-0.6); Absolute Neutrophils 6.7 10^3/uL (1.4-6.5); Hematocrit 36.8 % (37.0-47.0); Hemoglobin 12.6 g/dL (12.0-16.0); Mean Corp Hgb Conc. 34.2 g/dL (33.0-37.0); Mean Corpuscular Hgb 27.6 pg (27.0-31.0); Mean Corpuscular Volume 80.7 fL (81.0-99.0); Mean Platelet Volume 8.4 fL (7.4-10.4); Nucleated Red Blood Cells % 0 %; Platelet Count 257 10^3/uL (130-400); Red Blood Cell Count 4.56 10^6/uL (4.20-5.40); Red Cell Dist. Width 15.2 % (11.5-14.5); White Blood Cell Count 9.1 10^3/uL (4.8-10.8)
[2024-06-06 21:33] LABS: ALT (SGPT) 12 U/L (0-35); AST (SGOT) 22 U/L (14-36); Albumin 4.3 g/dl (3.5-5.0); Alkaline Phosphatase 120 U/L (38-126); Blood Urea Nitrogen 24 mg/dl (7-17); Calcium 9.4 mg/dl (8.4-10.2); Carbon Dioxide 23 mmol/L (22-30); Chloride 97 mmol/L (98-107); Glucose 184 mg/dl (70-99); Potassium 4.4 mmol/L (3.5-5.1); Sodium 132 mmol/L (135-145); Total Bilirubin 0.9 mg/dl (0.2-1.3); Total Protein 7.4 g/dl (6.3-8.2); eGFR > 60.00
[2024-06-06 22:43] VITALS: BP 176/83
[2024-06-06 23:00] VITALS: BP 157/69
--- NOTE | 2024-06-06 23:51 | ED.GENMED ---
History of Present Illness
General
Chief Complaint: Bowel Problem
Source: patient
Exam Limitations: none
Time Seen by Provider: 06/06/24 23:19
History of Present Illness
History of Present Illness:
This is a 89 year old female that comes in with c/o constipation. States that today she did not feel good. States that she was trying to have a BM and was unable to go. States that she tried several times and nothing happened. States that she was
nauseated and when she got up form the toilet she felt like she was going to fall. States that she sat back down on the toilet and vomited. States that she was lightheaded and dizzy. Denies any fever, chills, chest pain, SOB, abd pain, headache,
urinary burning.
Past History
Past History
ED Past Medical History: Arrthythmia (Atrial fib), Cancer (Skin CA), GERD, HTN and Other (DIVERTICULOSIS, tonic A. fib on Xarelto, syncope, chronic hearing loss, Hemorrhoids, )
ED Past Surgical History: Gynecological (D&C, ), Orthopedic (Bilateral knee cartilage removed, Left shoulder repair) and Other (Cataracts)
Social History
Tobacco: Non-smoker
Alcohol: None
Drug: None
Personal:
Living: assisted living ([place])
Family History
Family History: Negative Diabetes, Hypertension or CAD
Review of Systems
Review of Systems
All Other Systems: ROS reviewed and negative except as documented in HPI and ROS
Constitutional: Reports no symptoms; Denies fever or chills
EENT: Reports no symptoms
Respiratory: Reports no symptoms; Denies cough or trouble breathing
Cardiac: Reports no symptoms; Denies chest pain
ABD/GI: Reports nausea, vomiting and diarrhea; Denies abdominal pain
: Reports no symptoms
Musculoskeletal: Reports no symptoms
Skin: Reports no symptoms
Neurological: Reports dizzy; Denies headache
Psychiatric: Reports no symptoms
Phy Exam
General Physical Exam
General Presentation: no apparent distress
General age: appears stated age
General Skin: warm and dry
General Habitus: elderly
General Mental: alert
General Hydration: appears well hydrated
ENT Exam
ENT Exam: TM's normal, pharynx normal and neck supple
Eye Exam
Eye Exam: EOMI
Cardiovascular Exam
Cardiovascular Exam: no edema, normal peripheral pulses and irregularly irregular
Pulmonary Exam
Pulmonary Exam: lungs clear, no respiratory distress, no rales, chest non tender, no crackles, no rhonchi, no wheezing and no cough
Gastrointestinal Exam
Gastrointestinal Exam: normal bowel sounds, non tender, soft, no organomegaly, no pulsatile mass and non distended
Musculoskeletal Exam
Musculoskeletal Exam: full ROM and no edema
Skin Exam
Skin Exam: normal color, warm/dry, no rash and no petechia
Psychiatric Exam
Psychiatric Exam: normal mood/affect
Course
Orders/Labs/Results
Orders:
Orders
06/06/24 21:08
CMP [Comprehensive Metabolic Panel] Urgent
Complete Blood Count/With Diff Urgent
06/06/24 23:51
Ondansetron Injectable [Zofran] 4 mg IV NOW STA
06/07/24 00:00
CR Obstruct Series W/pa Chest Urgent
Reason For Exam: Constipation
06/07/24 00:30
CT Abd/pelvis W Iv Cont Urgent
Comment: r/o obstruction or ileus.
Reason For Exam: Constipation
06/07/24 02:21
Zosyn 3.375 grams IVPB NOW Piperacillin/Tazo 3.375 Gram [Zosyn] 3.375 gram in 50 ml IV NOW
Abnormal Lab Results
06/06/24
21:08
Hct 36.8 L %
(37.0-47.0)
MCV 80.7 L fL
(81.0-99.0)
RDW 15.2 H %
(11.5-14.5)
Absolute Neuts (auto) 6.7 H 10^3/uL
(1.4-6.5)
Absolute Monos (auto) 0.7 H 10^3/uL
(0.1-0.6)
Lymphocytes % 16.1 L %
(20.5-51.1)
Sodium 132 L mmol/L
(135-145)
Chloride 97 L mmol/L
(98-107)
BUN 24 H mg/dl
(7-17)
Glucose 184 H mg/dl
(70-99)
06/06/24 21:08
06/06/24 21:08
Sodium slightly low, Dehdyration. Glucose nonfasting.
Vital Signs
Initial and Last Documented VS:
Initial Vital Signs
Temp Pulse Resp BP Pulse Ox
98.2 F 66 22 152/94 97
06/06/24 20:40 06/06/24 20:40 06/06/24 20:40 06/06/24 20:40 06/06/24 20:40
Last Documented Vital Signs
Temp Pulse Resp BP Pulse Ox
98.2 F 73 18 148/68 98
06/06/24 20:40 06/07/24 01:26 06/07/24 01:26 06/07/24 01:25 06/07/24 01:25
MDM/Problems Addressed
Differential Diagnosis Includes:
Constipation. Bowel obstruction. Colitis
MDM/Problems Addressed:
This is a 89 year old female that comes in with c/o constipation. States that she was not feeling good today and was unable to move her bowels. States that she tried several times and the last night she was nauseated. States that she stood up and
felt dizzy so she sat back down and then vomited.
Will check labs. and get obstruction series. Patient arrived in the ER and had a very large diarrhea stool.
Back into see patient. Explained that her CT shows she has a colitis. Will start patient on antibiotics and admit. Hospitalist notified.
Chronic conditions affecting care:
Diverticulitis,
Acute Exacerbation and/or Progression of Chronic Illness:
NA
*Radiology
Radiology exam reviewed: radiology read reviewed (CT night hawk- Moderate severity colitis involving the transverse colon and splenic flexure. No focal diverticulitis. No bowel obstruction. Normal appendix. No No intraperitoneal free air, free
fluid or abscess. Additional findings: Mild cardiomegaly, with particular enlargement of the right heart.), all reviewed NAD by ED Provider (CT cont- Calcified RCA. Scattered bilteral cortical renal cyst. NO hydronephrosis, Nephrolithiasis or
striated nephrogram. Pelvic floor laxity treate with a vaginal pessary. Incidentally noted cyst in the right ovary measures 4.1cm, without evidence of significant solid component/complexity. Mildly ) and other (CT cont-ectatic abdominal aorta
without evidence of nazanin aneurysm. No retroperitoneal hemorrhage. Vertebral body endplate deformities at multiple level. A T12 inferior endplate deformity is age-indeterminate, although the others appear more convincingly chronic. Correlate with
pain at T12 level. )
*Pulse Oximetry
Patient hypoxic: no
*EKG
Interpreted by ED Provider?: NA
Rate: EKG- N/A
*Fireworks Assembler Interpretation
Rate: Fireworks Assembler- N/A
*Critical Care Note
Total Time (30-74mins, 75-104mins- exclusive of procedures): Not Applicable
ED Attending Note
-
Portions of this chart may have been created with voice recognition software.� Occasional wrong word or��sound alike� substitutions may have occurred due to the inherent limitations of voice recognition software.
Discharge Plan
Departure
Patient Disposition: Admit
Date of Disposition: 06/07/24
Time of Disposition: 02:28
Admit to: Med/Surg
Presentation/result/management discussed w/ accepting MD/DO: Hospitalist
Patient with high blood pressure during this ER visit?: Yes
Condition: Good
Covid-19: Not Applicable
Discharge Problem:
Acute colitis
Prescriptions:
No Action
atorvastatin 10 mg Tablet
10 mg PO DAILY
diltiazem HCl 120 mg capsule,extended release 24hr
120 mg PO DAILY
furosemide 20 mg Tablet
20 mg PO Q48H@0800
carboxymethylcellulose sodium 1 % Drops, Liquid Gel
1 drp BOTH EYES DAILYPRN PRN (Reason: dry eyes)
Align 4 mg Capsule
4 mg PO DAILY
Xarelto 20 mg Tablet
20 mg PO QPM
Referrals:
UNKNOWN - PT DOES,NOT KNOW [Family Provider] -
Interventions
Interventions:
*Risk Screen - Suicide Last Done: 06/06/24 20:40
*General Assessment Last Done: 06/07/24 00:16
*Neglect/Abuse Screening Last Done: 06/06/24 20:40
ED- Fall Risk Assessment Last Done: 06/07/24 01:09
*ED COVID-19 Vaccine History Last Done: 06/07/24 00:16
DA-Qooksl-Dchmegozhn Assessment Last Done: 06/07/24 00:16
Discharge Date and Time
Print Language: MONTENEGRIN
[2024-06-07] VITALS (13 sets, daily range): BP systolic 118–153; BP diastolic 67–116; BMI 24.6; BMI 23.9
[2024-06-07] MEDS: ZOFRAN 4 MG IV ×2 (00:23→13:36)
[2024-06-07] MEDS: ZOSYN 50 IV ×4 (02:24→20:02)
--- NOTE | 2024-06-07 03:03 | HPS.HSE ---
Family Physician
-
Family Physician: NOT KNOW UNKNOWN - PT DOES
Chief Complaint
-
constipation, N/V
History of Present Illness
89F HX perm AF, chr Xarelto, Diverticulosis pw constipation
- associated with N Constipation, N/V and vomited once
- associated with lightheaded and dizzy following attempted defecation
On arrival to ER room from triage
- she had large loose BMs and felt partially improved with nausea
- she had been constipated for last 3-4 days
Medical History
Past Medical History
Past Medical History: Reports Arrhythmia (A. fib), GERD, HTN and Other (chronic hearing loss, cataracts, diverticulosis, skin CA, chronic ambulatory dysfunction uses Rollator at baseline)
Past Surgical History: Reports Gynocological (D&C), Orthopedic (ORIF left humerus, bilateral knee cartilage removal ) and Other (Cataract extraction )
Social History
Tobacco: Non-smoker
Alcohol: None
Drug: None
Personal:
Living: Jail ([facility])
Employment: Retired
Family History
Family History: Other (Mother age 89 old age prior history of stroke father age 89 old age)
Allergies / Home Medications
Allergies reflects when Allergies were last updated in [facility].
Home Medications with original date entered in [facility]
Allergy/Medication List:
Allergies
Allergy/AdvReac Type Severity Reaction Status Date / Time
latex Allergy Rash Verified 11/30/22 07:07
Home Medications
Bifidobacterium infantis 4 mg capsule (Align) 4 mg PO DAILY Gastrointestinal Issue 03/03/24
atorvastatin 10 mg tablet 10 mg PO DAILY High Cholesterol 03/03/24
carboxymethylcellulose sodium 1 % eye liquid gel drops 1 drp BOTH EYES DAILYPRN PRN dry eyes 03/03/24
diltiazem HCl 120 mg capsule,extended release 24 hr 120 mg PO DAILY Arrhythmia 03/03/24
furosemide 20 mg tablet 20 mg PO Q48H@0800 Fluid Retention/Swelling 03/03/24
rivaroxaban 20 mg tablet (Xarelto) 20 mg PO QPM Blood Clot Prevention/Tx 03/03/24
Review of Systems
-
Constitutional: Reports No Symptoms
EENT: Reports No Symptoms
Respiratory: Reports No Symptoms
Cardiac: Reports No Symptoms
Abdomen/GI: Reports Nausea, Vomiting and Constipated
: Reports No Symptoms
Musculoskeletal: Reports No Symptoms
Skin: Reports No Symptoms
Neurological: Reports No Symptoms
Endocrine: Reports No Symptoms
Hematologic/Lymphatic: Reports No Symptoms
Psych: Reports No Symptoms
Physical Exam
Vital Signs
Vital Signs
Temp Pulse Resp BP Pulse Ox
98.2 F 73 16 141/68 96
06/06/24 20:40 06/07/24 02:28 06/07/24 02:28 06/07/24 02:00 06/07/24 02:30
Physical Exam
General: Well Developed, Well Nourished and No Apparent Distress
HEENT: NormoCephalic, Moist mucous membranes and Atraumatic
Respiratory: Clear
Cardiac: S1/S2 and Irregular Rhythm (in Perm AF); No Murmur or Rub
GI: Soft, Non Tender, Non Distended and Normal Bowel Sounds; No Organomegaly
Rectal: Deferred by Provider
Musculoskeletal: No Clubbing, No Cyanosis and No Edema
Skin: No Rash
Neuro: Nonfocal/grossly intact
Laboratory Results
-
06/06/24 21:08
06/06/24 21:08
Laboratory Results
Total Bilirubin 0.9 mg/dl (0.2-1.3) 06/06/24 21:08
AST 22 U/L (14-36) 06/06/24 21:08
ALT 12 U/L (0-35) 06/06/24 21:08
Alkaline Phosphatase 120 U/L (38-126) 06/06/24 21:08
Data Reviewed
-
CT Scan: Report Reviewed by me
Lab Data: Labs Reviewed by me
Old Records: Reviewed
Impression/Plan
-
Reviewed VS: unremarkable
Data
nl WCC
na 132
Cl 97
BUN 24
nl eGFR
BG 184
TTE 06/27/2021 : EF 55 to 60%, normal LVS, LVSF, no wall abnormalities, mild dilated left atrial size, trace aortic regurg, moderate TR
Night hawk CT AP report
- Moderate severity colitis involving the transverse colon and splenic flexure.
- No focal diverticulitis. No bowel obstruction. Normal appendix. No No intraperitoneal free air, free fluid or abscess.
- Mild cardiomegaly, with particular enlargement of the right heart.
- Calcified RCA. Scattered bilteral cortical renal cyst. NO hydronephrosis, Nephrolithiasis or striated nephrogram.
- Pelvic floor laxity treate with a vaginal pessary.
- Incidentally noted cyst in the right ovary measures 4.1cm, without evidence of significant solid component/complexity
-ectatic abdominal aorta without evidence of nazanin aneurysm. No retroperitoneal hemorrhage.
- Vertebral body endplate deformities at multiple level. A T12 inferior endplate deformity is age-indeterminate, although the others appear more convincingly chronic. Correlate with pain at T12 level
Last hospitalist admission: 03/03/24 - 02/23/24 PDX: Rectal bleeding with extravasation in distal rectum possibly 2/2 to Internal hemorrhoids
ASSESSMENT & PLAN
Colitis NOS of transverse colon and splenic flexure unclear etiology
She had large loose non bloody BMs and felt partially improved with nausea
- she had been constipated for last 3-4 days
- Clear diet
- IVF
- Empiric Zosyn
- anti emetics
- GI consult
Perm AF
- cont Cardizem
- cont Xarelto
Benign HTN
-cont Cardizem and furosemide
HLD
- cont atorvastatin 10 mg daily
Diverticulosis hx
- cont align 4 mg daily
Chronic ambulatory dysfunction
- uses rollator at baseline
DVT Px: Xarelto
Code: Full code
IP TLM
[2024-06-07] MEDS: NSS 1000 IV (05:15)
[2024-06-07 06:48] LABS: Hematocrit 35.3 % (37.0-47.0); Hemoglobin 12.1 g/dL (12.0-16.0); Mean Corp Hgb Conc. 34.3 g/dL (33.0-37.0); Mean Corpuscular Hgb 27.4 pg (27.0-31.0); Mean Corpuscular Volume 79.9 fL (81.0-99.0); Mean Platelet Volume 8.6 fL (7.4-10.4); Platelet Count 247 10^3/uL (130-400); Red Blood Cell Count 4.42 10^6/uL (4.20-5.40); Red Cell Dist. Width 15.1 % (11.5-14.5)
[2024-06-07 06:54] LABS: Blood Urea Nitrogen 21 mg/dl (7-17); Calcium 9.2 mg/dl (8.4-10.2); Carbon Dioxide 25 mmol/L (22-30); Chloride 97 mmol/L (98-107); Estimated Creatinine Clearance 52 ml/min; Glucose 143 mg/dl (70-99); Potassium 4.3 mmol/L (3.5-5.1); Sodium 132 mmol/L (135-145); eGFR > 60.00
[2024-06-07] MEDS: CARDIZEM CD 120 MG PO (08:05)
[2024-06-07] MEDS: LASIX 20 MG PO (08:05)
[2024-06-07] MEDS: VISBIOME 1 CAP PO (08:05)
[2024-06-07] MEDS: LIPITOR 10 MG PO (08:05)
--- NOTE | 2024-06-07 08:52 | W.PN.HOSP.TC ---
Today's Communication/Plan
-
Clear liquid diet. Antibiotics. GI eval
Assessment / Plan
Assessment / Plan
Physical exam:
General: Well Developed, Well Nourished and No Apparent Distress. Hard of hearing
HEENT: Normocephalic, Atraumatic and Moist Mucous Membranes
Respiratory: Clear to Auscultation; Negative Wheezes, Rales or Rhonchi
Cardiac: Irregular rate and rhythm and S1/S2
GI: Soft, Mild Tender and Nondistended
Musculoskeletal: No Clubbing, No Cyanosis and No Edema
Neuro: Awake, Alert and Oriented
Psych: Calm
A/P:
Colitis, infectious versus ischemic-clear liquid diet, continue antibiotics of Zosyn, GI consult
Hypertension-on diltiazem
Permanent atrial fibrillation-continue diltiazem 120 mg daily and anticoagulation Xarelto 20 mg nightly
Hyperlipidemia-continue atorvastatin 10 mg p.o. daily
DVT prophylaxis-Xarelto
CODE STATUS-full code
Anticipated Discharge: 24 - 48 hours
Subjective/Interval History
-
Date of Service: June 07, 2024
Patient with abdominal discomfort and nausea. Had an episode of vomiting today. Afebrile
Objective Data
-
Labs:
Laboratory Results
06/06/24 06/07/24
21:08 06:03
WBC 9.1 13.0 H
Hgb 12.6 12.1
Hct 36.8 L 35.3 L
Plt Count 257 247
Sodium 132 L 132 L
Potassium 4.4 4.3
Chloride 97 L 97 L
Carbon Dioxide 23 25
BUN 24 H 21 H
Creatinine 0.8 0.7
Glucose 184 H 143 H
Calcium 9.4 9.2
Total Bilirubin 0.9
AST 22
ALT 12
Alkaline Phosphatase 120
Vital Signs:
Vital Signs
Temp Pulse Resp BP Pulse Ox
98.2 F 78 16 139/69 97
06/06/24 20:40 06/07/24 05:15 06/07/24 05:15 06/07/24 04:55 06/07/24 05:15
--- NOTE | 2024-06-07 13:45 | CON.GI ---
Addendum entered and electronically signed by Jagdish Levin MD 06/07/24 17:54:
I saw and examined the patient.
The LASER BEAM COLOR SCANNER OPERATOR or PA's note was reviewed and I agree with the note.
Comment: 89yo female presents with vomiting, abd pain, loose stools. CT shows thickening 22cm transverse and splenic flexure. Last colonoscopy in 2012. WBC 13k
REC:
Cont IV zosyn to treat colitis- infectious v ischemic
Feeling better already
Check stool if diarrhea
Advance diet as tolerated
Agree with holding off on colonoscopy at age 89 if clinically improving
Original Note:
Consultation
-
Date/Time Consultation Requested: 06/07/24 0300
Date/Time Consultation Performed: 06/07/24 1345
Requesting Provider: Frederick Ortiz CRNP
Performing Provider: HARRY Elliott, Jagdish Levin MD
Reason for Consultation: colitis
Medical History
Chief Complaint / HPI
Chief Complaint: constipation
History of Present Illness:
Pt is an 89yo with hx afib, GERD, HTN, chronic hearing loss, diverticulosis, skin CA, chronic ambulatory dysfunction, rectal bleeding with hemorrhoids a few months ago with onset of constipation and nausea. On admission noted with WBC 13,[address]
noted 22 cm segment of colitis in transverse and splenic flexure. Pt was feeling better after admission after BM but also noted with some vomiting but per family may have also be related to some position in bed that induced symptoms.
Pt denies hx dysphagia, GERD, hematemesis, and abdominal pain now improved. She has hx constipation on colace in past then stopped with some diarrhea. Hx colonoscopy 2012 with diverticulosis with adenomatous and HP polyps. No recent travel or
abx. ? sick exposure at [employer].
Past Medical History
Past Medical History: Arrhythmias (afib on Xarelto ), GERD, HTN and Other (diverticulosis, constipation, chronic hearing loss, cataracts, diverticulosis, skin CA, chronic ambulatory dysfunction uses Rollator at baseline)
Past Surgical History: Gynecological (D+C), Orthopedic (ORIF left humerus, bilateral knee cartilage removal ) and Other (cataract surgery )
Social History
Tobacco: Non-Smoker
Alcohol: None
Drug: None
Living: Alone ([address] )
Employment: Retired
Family History
Family History: Other (no family hx colon CA or polyps)
Allergies / Home Medications
Allergy/AdvReac Type Severity Reaction Status Date / Time
latex Allergy Rash Verified 06/06/24 20:46
valsartan Allergy Unknown Verified 06/06/24 20:46
�Medication �Instructions �Recorded
Bifidobacterium infantis 4 mg 4 mg PO DAILY Gastrointestinal 03/03/24
capsule (Align) Issue
atorvastatin 10 mg tablet 10 mg PO DAILY High Cholesterol 03/03/24
carboxymethylcellulose sodium 1 % 1 drp BOTH EYES DAILYPRN PRN dry 03/03/24
eye liquid gel drops eyes
diltiazem HCl 120 mg 120 mg PO DAILY Arrhythmia 03/03/24
capsule,extended release 24 hr
furosemide 20 mg tablet 20 mg PO Q48H@0800 Fluid 03/03/24
Retention/Swelling
rivaroxaban 20 mg tablet (Xarelto) 20 mg PO QPM Blood Clot 06/07/24
Prevention/Tx
Review of Systems
-
History Source: Patient and Family
Constitutional: Reports No Symptoms
EENT: Reports No Symptoms
Respiratory: Reports No Symptoms
Abdomen/GI: Reports Abdominal Pain (with constipation prior to admission), Nausea, Vomiting and Constipated
: Reports No Symptoms
Musculoskeletal: Reports No Symptoms
Skin: Reports No Symptoms
Neurological: Reports Other (hard of hearing )
Endocrine: Reports No Symptoms
Hematologic/Lymphatic: Reports No Symptoms
Vital Signs
Temp Pulse Resp BP Pulse Ox
98.1 F 74 16 146/99 96
06/07/24 10:05 06/07/24 13:00 06/07/24 13:00 06/07/24 13:00 06/07/24 12:00
Physical Exam
Exam
General: Well Developed, Well Nourished and No Apparent Distress
HEENT: Normocephalic and Anicteric
Respiratory: Clear
Cardiac: Regular Rhythm
GI: Soft, Non Tender and Non Distended
Musculoskeletal: No Clubbing and No Cyanosis
Skin: Warm and Dry
Neuro: Awake, Alert and AO x 3
Psych: Calm
Results
WBC 13.0 10^3/uL (4.8-10.8) H 06/07/24 06:03
Hgb 12.1 g/dL (12.0-16.0) 06/07/24 06:03
Hct 35.3 % (37.0-47.0) L 06/07/24 06:03
MCV 79.9 fL (81.0-99.0) L 06/07/24 06:03
Plt Count 247 10^3/uL (130-400) 06/07/24 06:03
Absolute Neuts (auto) 6.7 10^3/uL (1.4-6.5) H 06/06/24 21:08
Sodium 132 mmol/L (135-145) L 06/07/24 06:03
Potassium 4.3 mmol/L (3.5-5.1) 06/07/24 06:03
Chloride 97 mmol/L (98-107) L 06/07/24 06:03
Carbon Dioxide 25 mmol/L (22-30) 06/07/24 06:03
BUN 21 mg/dl (7-17) H 06/07/24 06:03
Creatinine 0.7 mg/dL (0.6-1.0) 06/07/24 06:03
Calcium 9.2 mg/dl (8.4-10.2) 06/07/24 06:03
Total Bilirubin 0.9 mg/dl (0.2-1.3) 06/06/24 21:08
AST 22 U/L (14-36) 06/06/24 21:08
ALT 12 U/L (0-35) 06/06/24 21:08
Alkaline Phosphatase 120 U/L (38-126) 06/06/24 21:08
Diagnostic Image Results:
06/07/24 Obstruct Series W/pa Chest
No evidence of active cardiopulmonary disease.
No radiographic evidence for obstruction or free intraperitoneal air.
1). There is an approximately 22 cm in length area of colitis involving the transverse colon and splenic flexure
2). Nonurgent findings include:
-Multiple bilateral renal cysts.
-Atherosclerosis
-Diverticuli are present in the colon
-Old 70% compression fracture of L4
-Multilevel degenerative disc disease
-Pessary in the pelvis
Prior GI Procedures:
Colonoscopy: 2013 with diverticulosis with adenomatous and HP polyps.
Assessment / Plan
-
Pt is an 89yo with hx afib, GERD, HTN, chronic hearing loss, diverticulosis, skin CA, chronic ambulatory dysfunction, rectal bleeding with hemorrhoids a few months ago with onset of constipation and nausea. On admission noted with WBC 13,[address]
noted 22 cm segment of colitis in transverse and splenic flexure. Pt was feeling better after admission after BM but also noted with some vomiting but per family may have also be related to some position in bed that induced symptoms. No recent
travel or abx. ? sick exposure at [employer]. She has hx constipation on colace in past then stopped with some diarrhea. Hx colonoscopy 2012 with diverticulosis with adenomatous and HP polyps.
-colitis
-constipation
-nausea/vomiting
-leukocytosis
other med problems:
-hard of hearing
-GERD
-HTN
-diverticulosis
-skin CA
-ambulatory dysfunction
PLAN:
etiology of symptoms related to colitis -- infectious, ischemic vs other
pt with some improvement after admission with after BM
some recent vomiting cont to monitor, cont antiemetics
cont antibiotics with Zosyn
clear diet as tolerated
remains on Xarelto
updates son given age would like to hold on colonoscopy given age if improving
if diarrhea develops add stool studies
will follow
-
-
Thank you for consultation and allowing me to participate in the patient's care. Please call the imitation marble mechanic GI physician during the after hours with any questions or concerns.
--- NOTE | 2024-06-07 14:32 | CM ---
Addendum entered by Mellissa Machuca 06/07/24 14:36:
Patient also currently receiving IV antibiotics.
Original Note:
CM reviewed chart.
CM introduced self and role. Spoke with patient at bedside.
Dx: colitis and constipation
Patient is on IVF and GI is consulted.
Patient is independent with a Rolater. She lives in an apt at [facility].
Her apartment is single level. There are no steps to enter.
She does not drive. Patient will need transportation set up on discharge.
She has 2 sons for support.
She is retired. 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
She denied any +SDOH's.
PCP: Dr. Kraus
Pharmacy: [facility]
DISCHARGE DISPOSITION:
TBD upon PT/OT's assessment and evaluation. Will be discharged when medically stable.
[2024-06-07] MEDS: XARELTO 20 MG PO (17:39)
[2024-06-08] VITALS (8 sets, daily range): BP systolic 123–167; BP diastolic 63–94; PULSE 76; O2SAT 97
[2024-06-08] MEDS: ZOSYN 50 IV ×4 (01:58→21:01)
[2024-06-08] MEDS: NSS 1000 IV ×2 (01:58→17:05)
--- NOTE | 2024-06-08 03:44 | DOWNTIME ---
There was a [employer] Client [employer] Negotiator Downtime on 06/08/2024 from 0100 to 06/08/2024 at 0252. Downtime documentation of patient's care, including medication administrations, has been reconciled in the electronic record per guidelines. Refer to the
patient's paper chart under the miscellaneous tab to see printed paper medication records and downtime forms.
[2024-06-08 06:20] LABS: % Basophils 0.2 % (0-2); % Eosinophils 0.2 % (0-6); % Immature Granulocytes 0.4 % (0-0.5); % Lymphocytes 5.8 % (20.5-51.1); % Neutrophils 88.4 % (42.2-75.2); Absolute Immature Granulocytes 0.1 10^3/uL (0-0.05); Absolute Lymphocytes 0.9 10^3/uL (1.2-3.4); Absolute Monocytes 0.8 10^3/uL (0.1-0.6); Absolute Neutrophils 13.5 10^3/uL (1.4-6.5); Hematocrit 33.3 % (37.0-47.0); Hemoglobin 11.6 g/dL (12.0-16.0); Mean Corp Hgb Conc. 34.8 g/dL (33.0-37.0); Mean Corpuscular Hgb 28.6 pg (27.0-31.0); Mean Corpuscular Volume 82.2 fL (81.0-99.0); Mean Platelet Volume 8.8 fL (7.4-10.4); Nucleated Red Blood Cells % 0 %; Platelet Count 211 10^3/uL (130-400); Red Blood Cell Count 4.05 10^6/uL (4.20-5.40); Red Cell Dist. Width 15.3 % (11.5-14.5); White Blood Cell Count 15.3 10^3/uL (4.8-10.8)
[2024-06-08 06:50] LABS: Blood Urea Nitrogen 23 mg/dl (7-17); Calcium 8.6 mg/dl (8.4-10.2); Carbon Dioxide 25 mmol/L (22-30); Chloride 100 mmol/L (98-107); Estimated Creatinine Clearance 52 ml/min; Glucose 136 mg/dl (70-99); Potassium 3.5 mmol/L (3.5-5.1); Sodium 131 mmol/L (135-145); eGFR > 60.00
[2024-06-08] MEDS: VISBIOME 1 CAP PO (08:23)
[2024-06-08] MEDS: CARDIZEM CD 120 MG PO (08:23)
[2024-06-08] MEDS: LIPITOR 10 MG PO (08:27)
--- NOTE | 2024-06-08 11:41 | W.PN.GI.CBS2 ---
Today's Communication / Plan
-
Still reports nausea. Keep on clears
Continue abx.
WBC remains elevated 15K
Assessment / Plan
-
Summary: 89yo with hx afib, chronic hearing loss, diverticulosis, skin CA, chronic ambulatory dysfunction, rectal bleeding with hemorrhoids a few months ago presents with constipation and nausea. On admission WBC 13,000. CT- 22 cm segment of colitis
in transverse and splenic flexure. Pt was feeling better after admission after BM but also had some vomiting. No recent travel or abx. ? sick exposure at [employer]. She has hx constipation on colace in past then stopped with some diarrhea. Hx
colonoscopy 2012 with diverticulosis with adenomatous and HP polyps.
Impression:
-Colitis 22cm segment transverse/splenic flexure- infectious v ischemic
-constipation
-nausea/vomiting
-leukocytosis
-hard of hearing
Subjective
Subjective
Date of Service: June 08, 2024
Still c/o nausea. Reports dry heaves with clears this am
Objective
Data Reviewed
Laboratory Data:
Laboratory Results
06/08/24 05:56
06/08/24 05:56
Laboratory Results
Total Bilirubin 0.9 mg/dl (0.2-1.3) 06/06/24 21:08
AST 22 U/L (14-36) 06/06/24 21:08
ALT 12 U/L (0-35) 06/06/24 21:08
Alkaline Phosphatase 120 U/L (38-126) 06/06/24 21:08
Vital Signs and I&O:
Vital Signs
Temp Pulse Resp BP Pulse Ox
98.2 F 75 18 138/77 97
06/08/24 10:55 06/08/24 10:55 06/08/24 10:55 06/08/24 10:55 06/08/24 10:55
Physical Exam
Physical Exam
GI: Soft and Tender
--- NOTE | 2024-06-08 13:11 | PN.CDI ---
CDI
- -
CDI:
Physician Documentation Request
Admit Date: 06/07/24 03:32
Dear Doctor Ana,
Please review the following and provide your response in the progress notes.
Clinical Indicators:
Laboratory Tests
06/06/24 06/07/24 06/08/24
21:08 06:03 05:56
Sodium 132 L 132 L 131 L
Based on the above, please clarify in the progress notes, the appropriate diagnosis, if significant, that supports the above abnormalities and additional evaluation, monitoring and/or treatment rendered:
Hyponatremia
Abnormal lab value, clinically insignificant
Other (please specify)
Use of terms such as suspected, likely, concern for, or probable (associated with a specific diagnosis that is being evaluated, monitored, or treated as if it exists) are acceptable and can be coded in the inpatient setting, when documented at the
time of discharge.
Thank you,
Shawna Carreon RN BSN CCDS
CDI Specialist
please contact via tiger text
Please use your independent medical judgment in providing your response.
--- NOTE | 2024-06-08 13:26 | W.PN.HOSP.TC ---
Addendum entered and electronically signed by Yahir Perez DO 06/08/24 14:14:
Hyponatremia
Original Note:
Today's Communication/Plan
-
Stool studies
Assessment / Plan
Assessment / Plan
Physical exam:
General: Well Developed, Well Nourished and No Apparent Distress. Hard of hearing
HEENT: Normocephalic, Atraumatic and Moist Mucous Membranes
Respiratory: Clear to Auscultation; Negative Wheezes, Rales or Rhonchi
Cardiac: Irregular rate and rhythm and S1/S2
GI: Soft, Mild Tender and Nondistended
Musculoskeletal: No Clubbing, No Cyanosis and No Edema
Neuro: Awake, Alert and Oriented
Psych: Calm
Acute colitis -CT scan notes colitis involving the transverse colon and splenic flexure. Etiology unclear but differential diagnosis includes infectious versus ischemic. Doubt inflammatory. Check stool studies. Tolerating clears. GI following.
Essential hypertension-on diltiazem
Permanent atrial fibrillation-continue diltiazem 120 mg daily and anticoagulation Xarelto 20 mg nightly
Hyperlipidemia-continue atorvastatin 10 mg p.o. daily
DVT prophylaxis-Xarelto
CODE STATUS-full code
Dispo - anticipate SNF on discharge. She lives in [facility].
Updated son at the bedside.
Anticipated Discharge: Within 24 hours
Subjective/Interval History
-
Date of Service: June 08, 2024
Patient seen and examined. Feeling better. Denies nausea or vomiting. No complaints.
Objective Data
-
Labs:
Laboratory Results
06/08/24
05:56
WBC 15.3 H
Hgb 11.6 L
Hct 33.3 L
Plt Count 211
Sodium 131 L
Potassium 3.5
Chloride 100
Carbon Dioxide 25
BUN 23 H
Creatinine 0.7
Glucose 136 H
Calcium 8.6
Vital Signs:
Vital Signs
Temp Pulse Resp BP Pulse Ox
98.2 F 75 18 138/77 97
06/08/24 10:55 06/08/24 10:55 06/08/24 10:55 06/08/24 10:55 06/08/24 10:55
Review of Systems
-
History Source: Patient
All other systems: Reviewed and negative
[2024-06-08] MEDS: KCL 270 MEQ IV (14:18)
--- NOTE | 2024-06-08 14:52 | CM ---
Case management following for discharge planning
Chart reviewed
PT recs - SNF - discussed with pt - agreeable to plan
Pt from [facility] - pt prefers [facility] - referral sent in Care Port
CM will be available for d/c needs
Plan - anticipate SNF when medically ready
[2024-06-08] MEDS: XARELTO 20 MG PO (16:57)
[2024-06-08] MEDS: APRESOLINE 5 MG IV (21:59)
[2024-06-09 03:07] VITALS: BP 146/75
[2024-06-09] MEDS: ZOSYN 50 IV ×4 (03:10→20:55)
[2024-06-09 07:01] LABS: Blood Urea Nitrogen 18 mg/dl (7-17); Calcium 8.6 mg/dl (8.4-10.2); Carbon Dioxide 24 mmol/L (22-30); Chloride 101 mmol/L (98-107); Estimated Creatinine Clearance 52 ml/min; Glucose 93 mg/dl (70-99); Magnesium 1.9 mg/dl (1.6-2.3); Potassium 4.5 mmol/L (3.5-5.1); Sodium 134 mmol/L (135-145); eGFR > 60.00
[2024-06-09 07:40] VITALS: BP 120/72
[2024-06-09] MEDS: LIPITOR 10 MG PO (08:02)
[2024-06-09] MEDS: LASIX 20 MG PO (08:02)
[2024-06-09] MEDS: VISBIOME 1 CAP PO (08:02)
[2024-06-09] MEDS: CARDIZEM CD 120 MG PO (08:02)
[2024-06-09] MEDS: DESENEX/MITRAZOL/ZEASORB 1 APPLIC TOPICAL ×2 (08:03→20:56)
--- NOTE | 2024-06-09 10:43 | W.PN.GI.CBS2 ---
Addendum entered and electronically signed by Jagdish Levin MD 06/09/24 11:03:
I saw and evaluated the patient. I reviewed the resident�s note and agree with findings and plan as documented in the resident�s note.
Pt tells me she feels no better, but looks better than yesterday, more alert and comfortable appearing
ABD soft mild tender LLQ
REC:
C diff negative
Advance to low residue diet as a trial to see if she is improving
No vomiting with clears
Cont abx
Original Note:
Today's Communication / Plan
-
Patient seems to be improving clinically.
- C. difficile negative. rest of stool studies pending
- WBC count this am pending
- May advance diet as tolerated
Assessment / Plan
-
Summary: 89yo with hx afib, chronic hearing loss, diverticulosis, skin CA, chronic ambulatory dysfunction, rectal bleeding with hemorrhoids a few months ago presents with constipation and nausea. On admission WBC 13,000. CT- 22 cm segment of colitis
in transverse and splenic flexure. Pt was feeling better after admission after BM but also had some vomiting. No recent travel or abx. ? sick exposure at [employer]. She has hx constipation on colace in past then stopped with some diarrhea. Hx
colonoscopy 2012 with diverticulosis with adenomatous and HP polyps.
Impression:
-Colitis 22cm segment transverse/splenic flexure- infectious v ischemic
-nausea/vomiting
-leukocytosis
-hard of hearing
Subjective
Subjective
Date of Service: June 09, 2024
Patient is feeling good in general. Last bowel movement was this morning which was loose but not bloody. She had 4 bowel movements yesterday of which 1 was watery and 1 was loose. She has not had any more vomiting since yesterday noon. Is able to
tolerate clear liquids. No nausea. No fevers/ chills overnight.
Objective
Data Reviewed
Laboratory Data:
Laboratory Results
06/09/24 05:51
Laboratory Results
Magnesium 1.9 mg/dl (1.6-2.3) 06/09/24 05:51
Total Bilirubin 0.9 mg/dl (0.2-1.3) 06/06/24 21:08
AST 22 U/L (14-36) 06/06/24 21:08
ALT 12 U/L (0-35) 06/06/24 21:08
Alkaline Phosphatase 120 U/L (38-126) 06/06/24 21:08
Vital Signs and I&O:
Vital Signs
Temp Pulse Resp BP Pulse Ox
97.8 F 68 16 120/72 99
06/09/24 07:40 06/09/24 07:40 06/09/24 07:40 06/09/24 07:40 06/09/24 07:40
I&O
06/08/24 06/09/24 06/10/24
06:59 06:59 06:59
Intake Total 1440 / 1440
Balance 1440 / 1440
Physical Exam
Physical Exam
HEENT: Anicteric and Moist mucous membranes
Cardiology: Normal Sinus Rhythm, S1 and S2
Pulmonary: Clear
GI: Soft, Non Distended and Tender (Mild LUQ tenderness)
Extremities: No Edema
[2024-06-09 11:11] VITALS: BP 143/69
--- NOTE | 2024-06-09 11:20 | W.PN.HOSP.TC ---
Today's Communication/Plan
-
Advance diet
Assessment / Plan
Assessment / Plan
Physical exam:
General: Well Developed, Well Nourished and No Apparent Distress. Hard of hearing
HEENT: Normocephalic, Atraumatic and Moist Mucous Membranes
Respiratory: Clear to Auscultation; Negative Wheezes, Rales or Rhonchi
Cardiac: Irregular rate and rhythm and S1/S2
GI: Soft, Mild Tender and Nondistended
Musculoskeletal: No Clubbing, No Cyanosis and No Edema
Neuro: Awake, Alert and Oriented
Psych: Calm
Acute colitis -CT scan notes colitis involving the transverse colon and splenic flexure. Etiology unclear but differential diagnosis includes infectious versus ischemic. Doubt inflammatory. GI consulted. On empiric antibiotics.
Stool negative for C. difficile toxin. Stool culture pending. Advance diet to low residue as per GI.
CBC pending for today.
Essential hypertension-on diltiazem
Permanent atrial fibrillation-continue diltiazem 120 mg daily and anticoagulation Xarelto 20 mg nightly
Hyperlipidemia-continue atorvastatin 10 mg p.o. daily
DVT prophylaxis-Xarelto
CODE STATUS-full code
Dispo - anticipate SNF on discharge. She lives in [facility].
Anticipated Discharge: Within 24 hours
Subjective/Interval History
-
Date of Service: June 09, 2024
Patient seen and examined. Still with loose stools. Complaining of lack of appetite.
Objective Data
-
Labs:
Laboratory Results
06/09/24 06/09/24
04:06 05:51
WBC Pending
Hgb Pending
Hct Pending
Plt Count Pending
Sodium 134 L
Potassium 4.5 D
Chloride 101
Carbon Dioxide 24
BUN 18 H
Creatinine 0.7
Glucose 93
Calcium 8.6
Vital Signs:
Vital Signs
Temp Pulse Resp BP Pulse Ox
99.5 F 69 16 143/69 95
06/09/24 11:11 06/09/24 11:11 06/09/24 11:11 06/09/24 11:11 06/09/24 11:11
I&O
06/08/24 06/09/24 06/10/24
06:59 06:59 06:59
Intake Total 1440 / 1440
Balance 1440 / 1440
Review of Systems
-
History Source: Patient
All other systems: Reviewed and negative
[2024-06-09 13:00] LABS: % Basophils 0.5 % (0-2); % Eosinophils 1.4 % (0-6); % Immature Granulocytes 0.3 % (0-0.5); % Lymphocytes 10.7 % (20.5-51.1); % Monocytes 6.6 % (1.7-9.3); % Neutrophils 80.5 % (42.2-75.2); Absolute Basophils 0.1 10^3/uL (0-0.2); Absolute Eosinophils 0.2 10^3/uL (0-0.7); Absolute Lymphocytes 1.4 10^3/uL (1.2-3.4); Absolute Monocytes 0.8 10^3/uL (0.1-0.6); Absolute Neutrophils 10.2 10^3/uL (1.4-6.5); Hematocrit 30.7 % (37.0-47.0); Hemoglobin 10.4 g/dL (12.0-16.0); Mean Corp Hgb Conc. 33.9 g/dL (33.0-37.0); Mean Corpuscular Hgb 27.4 pg (27.0-31.0); Mean Corpuscular Volume 80.8 fL (81.0-99.0); Mean Platelet Volume 9.9 fL (7.4-10.4); Nucleated Red Blood Cells % 0 %; Platelet Count 183 10^3/uL (130-400); Red Cell Dist. Width 15.5 % (11.5-14.5); White Blood Cell Count 12.7 10^3/uL (4.8-10.8)
[2024-06-09 15:22] VITALS: BP 130/76
[2024-06-09] MEDS: XARELTO 20 MG PO (17:57)
--- NOTE | 2024-06-09 18:05 | PTCARENOTE ---
Pt still having very poor appetite, but no vomiting, eating small amount of trays - on low fiber diet. Still having diarrhea. Denies abd pain.
[2024-06-09 19:29] VITALS: BP 133/70
[2024-06-09 23:50] VITALS: BP 128/70
[2024-06-10] MEDS: ZOSYN 50 IV ×2 (02:14→09:50)
[2024-06-10 04:31] VITALS: BP 111/75
[2024-06-10 08:01] VITALS: BP 137/80
--- NOTE | 2024-06-10 09:00 | W.PN.GI.CBS2 ---
Addendum entered and electronically signed by Cherry Mendez MD 06/10/24 11:28:
I saw and evaluated the patient. I reviewed the resident�s note and agree with findings and plan as documented in the resident�s note.
Pt improving with less nausea. No vomiting
abd: soft, nontender
impression:
resolving colitis
plan:
supportive care
no further inpatient gi w/u
will sign off
Original Note:
Today's Communication / Plan
-
- Patient is clinically improving
- She is able to tolerate diet without any nausea/vomiting
- Stool WBC negative
- GI will sign off. Please call office if any questions
Assessment / Plan
-
Summary: 89yo with hx afib, chronic hearing loss, diverticulosis, skin CA, chronic ambulatory dysfunction, rectal bleeding with hemorrhoids a few months ago presents with constipation and nausea. On admission WBC 13,000. CT- 22 cm segment of colitis
in transverse and splenic flexure. Pt was feeling better after admission after BM but also had some vomiting. No recent travel or abx. ? sick exposure at [employer]. She has hx constipation on colace in past then stopped with some diarrhea. Hx
colonoscopy 2012 with diverticulosis with adenomatous and HP polyps.
Impression:
-Colitis 22cm segment transverse/splenic flexure- infectious v ischemic
-nausea/vomiting (POA)- Resolved.
-leukocytosis (POA)-WBC down trended after start of antibiotics. WBC =12.7 (06/09/24)
-hard of hearing
Subjective
Subjective
Date of Service: June 10, 2024
She is feeling about the same as yesterday. Patient mentions she had meatloaf with carrots for dinner last night. No nausea/vomiting but could only eat a small portion because of poor appetite. She only had 1 bowel movement yesterday which was
loose/watery. Does not mention any abdominal pain.
Objective
Data Reviewed
Laboratory Data:
Laboratory Results
06/09/24 05:51
06/09/24 05:51
Laboratory Results
Magnesium 1.9 mg/dl (1.6-2.3) 06/09/24 05:51
Total Bilirubin 0.9 mg/dl (0.2-1.3) 06/06/24 21:08
AST 22 U/L (14-36) 06/06/24 21:08
ALT 12 U/L (0-35) 06/06/24 21:08
Alkaline Phosphatase 120 U/L (38-126) 06/06/24 21:08
Vital Signs and I&O:
Vital Signs
Temp Pulse Resp BP Pulse Ox
97.8 F 67 16 137/80 97
06/10/24 08:01 06/10/24 08:01 06/10/24 08:01 06/10/24 08:01 06/10/24 08:01
I&O
06/09/24 06/10/24 06/11/24
06:59 06:59 06:59
Intake Total 1440 / 1440 1240 / 1240
Balance 1440 / 1440 1240 / 1240
Physical Exam
Physical Exam
HEENT: Anicteric and Moist mucous membranes
Cardiology: Normal Sinus Rhythm, S1 and S2
Pulmonary: Clear
GI: Soft, Non Distended and Non Tender (Mild lower abdominal tenderness)
[2024-06-10] MEDS: VISBIOME 1 CAP PO (09:50)
[2024-06-10] MEDS: LIPITOR 10 MG PO (09:50)
[2024-06-10] MEDS: CARDIZEM CD 120 MG PO (09:51)
[2024-06-10] MEDS: DESENEX/MITRAZOL/ZEASORB 1 APPLIC TOPICAL (09:51)
--- NOTE | 2024-06-10 11:19 | CM ---
Addendum entered by Jennifer Quevedo 06/10/24 11:38:
Received call from pts son Bairon. Aware of discharge today. Discussed transport - [facility] vs family transport. Reports his son will transport to [facility]
Original Note:
Pt for discharge today
Per Sammie at [facility] can accept today
Spoke with pt - aware
Discussed IMM
Called pts son - LM with call back number
Called Zarina - daughter in law. Made aware - pt ready for discharge to [facility]. Reports she will let pts son know. Family will transport
Plan - anticipate transfer to [facility]
R - [phone]
F - [phone]
[2024-06-10 11:26] VITALS: BP 130/65
--- NOTE | 2024-06-10 11:36 | W.PN.HOSP.TC ---
Today's Communication/Plan
-
Discharge
Assessment / Plan
Assessment / Plan
Physical exam:
General: Well Developed, Well Nourished and No Apparent Distress. Hard of hearing
HEENT: Normocephalic, Atraumatic and Moist Mucous Membranes
Respiratory: Clear to Auscultation; Negative Wheezes, Rales or Rhonchi
Cardiac: Irregular rate and rhythm and S1/S2
GI: Soft, Mild Tender and Nondistended
Musculoskeletal: No Clubbing, No Cyanosis and No Edema
Neuro: Awake, Alert and Oriented
Psych: Calm
Acute colitis -CT scan notes colitis involving the transverse colon and splenic flexure. Etiology unclear but differential diagnosis includes infectious versus ischemic. Doubt inflammatory. GI consulted. On empiric antibiotics.
Stool negative for C. difficile toxin. Stool culture pending. Tolerating low residue diet. WBCs trending down. Can discharge today on oral antibiotics.
Hyponatremia -sodium improving.
Essential hypertension-on diltiazem
Permanent atrial fibrillation-continue diltiazem 120 mg daily and anticoagulation Xarelto 20 mg nightly
Hyperlipidemia-continue atorvastatin 10 mg p.o. daily
DVT prophylaxis-Xarelto
CODE STATUS-full code
Dispo -medically stable for discharge back to [facility]. Case management aware.
31 minutes spent in discharge process.
Anticipated Discharge: Today
Subjective/Interval History
-
Date of Service: June 10, 2024
Patient seen and examined. Feeling better. No complaints. Tolerating diet.
Objective Data
-
Vital Signs:
Vital Signs
Temp Pulse Resp BP Pulse Ox
98.6 F 67 16 130/65 96
06/10/24 11:26 06/10/24 11:26 06/10/24 11:26 06/10/24 11:26 06/10/24 11:26
I&O
06/09/24 06/10/24 06/11/24
06:59 06:59 06:59
Intake Total 1440 / 1440 1240 / 1240
Balance 1440 / 1440 1240 / 1240
Review of Systems
-
History Source: Patient
All other systems: Reviewed and negative
--- NOTE | 2024-06-10 11:40 | W.DS.TRANS ---
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
-
Discharge Instructions:
Sleep Apnea Risk Low
Discharge Diagnosis/Procedures Acute colitis
Diet Low Residue
Activity As tolerated,With assistance
Driving Restrictions No driving
Bathing Restrictions None
Instructions:
Stand-Alone Forms:
Changes to Home Medications: No
Discharge Medications:
DC Medications w/original date entered in [email or web address]
Bifidobacterium infantis 4 mg capsule (Align) 4 mg PO DAILY Gastrointestinal Issue 03/03/24
atorvastatin 10 mg tablet 10 mg PO DAILY High Cholesterol 03/03/24
carboxymethylcellulose sodium 1 % eye liquid gel drops 1 drp BOTH EYES DAILYPRN PRN dry eyes 03/03/24
diltiazem HCl 120 mg capsule,extended release 24 hr 120 mg PO DAILY Arrhythmia 03/03/24
furosemide 20 mg tablet 20 mg PO Q48H@0800 Fluid Retention/Swelling 03/03/24
rivaroxaban 20 mg tablet (Xarelto) 20 mg PO QPM Blood Clot Prevention/Tx 06/07/24
amoxicillin 875 mg-potassium clavulanate 125 mg tablet 1 tab PO BID #6 tabs 06/10/24
Home Medication Changes
Pending Results: No
[2024-06-10] MEDS: ZOSYN IV (15:14)
== END 2024-06-10 15:24 | disposition home or self-care (01) | DRG 392 ==
LOC: 3 WEST ACU 03:32
PROVIDERS: Emergency Medicine; Hospitalist; Nurse Practitioner Gerontology; ADMITTING PHYSICIAN Internal Medicine; ATTENDING PHYSICIAN Hospitalist; CONSULT PHYSICIAN Internal Medicine; EMERGENCY PHYSICIAN Emergency Medicine
DX: A09 Infectious gastroenteritis and colitis, unspecified (principal); E87.1 Hypo-osmolality and hyponatremia; I48.21 Permanent atrial fibrillation; I10 Essential (primary) hypertension; E78.00 Pure hypercholesterolemia, unspecified; K21.9 Gastro-esophageal reflux disease without esophagitis
CPT/HCPCS: 74022; 74177; 80048; 80053; 83735; 85025; 85027; 87045; 87046; 87324; 87427; 87449; 89055; 96365; 96375; 97163; 97530; 99285; Q9967

== ENCOUNTER → 2024-06-24 16:01 | Outpatient (REF) | payer MEDICARE, OTHER, SELFPAY ==
[2024-06-24 16:28] LABS: % Eosinophils 6.3 % (0-6); % Immature Granulocytes 0.3 % (0-0.5); % Lymphocytes 29.2 % (20.5-51.1); % Monocytes 9.6 % (1.7-9.3); % Neutrophils 53.6 % (42.2-75.2); Absolute Basophils 0.1 10^3/uL (0-0.2); Absolute Eosinophils 0.4 10^3/uL (0-0.7); Absolute Lymphocytes 1.8 10^3/uL (1.2-3.4); Absolute Monocytes 0.6 10^3/uL (0.1-0.6); Absolute Neutrophils 3.3 10^3/uL (1.4-6.5); Hematocrit 28.9 % (37.0-47.0); Hemoglobin 9.7 g/dL (12.0-16.0); Mean Corp Hgb Conc. 33.6 g/dL (33.0-37.0); Mean Corpuscular Volume 80.5 fL (81.0-99.0); Mean Platelet Volume 8.7 fL (7.4-10.4); Nucleated Red Blood Cells % 0 %; Platelet Count 278 10^3/uL (130-400); Red Blood Cell Count 3.59 10^6/uL (4.20-5.40); Red Cell Dist. Width 15.7 % (11.5-14.5); White Blood Cell Count 6.1 10^3/uL (4.8-10.8)
[2024-06-24 16:34] LABS: Blood Urea Nitrogen 18 mg/dl (7-17); Calcium 8.7 mg/dl (8.4-10.2); Carbon Dioxide 27 mmol/L (22-30); Chloride 98 mmol/L (98-107); Glucose 91 mg/dl (70-99); Potassium 4.7 mmol/L (3.5-5.1); Sodium 136 mmol/L (135-145); eGFR > 60.00
== END ==
LOC: OLABP 16:01
PROVIDERS: ATTENDING PHYSICIAN Family Medicine
DX: K57.90 Diverticulosis of intestine, part unspecified, without perforation or abscess without bleeding (principal); E78.5 Hyperlipidemia, unspecified; I10 Essential (primary) hypertension; K52.9 Noninfective gastroenteritis and colitis, unspecified; K55.9 Vascular disorder of intestine, unspecified; I48.21 Permanent atrial fibrillation
CPT/HCPCS: 36415; 80048; 85025

== ENCOUNTER → 2024-06-28 11:30 | Outpatient (REF) | payer MEDICARE, OTHER, SELFPAY ==
[2024-06-28 12:18] LABS: % Basophils 1.3 % (0-2); % Eosinophils 8.4 % (0-6); % Immature Granulocytes 0.2 % (0-0.5); % Lymphocytes 29.1 % (20.5-51.1); % Monocytes 12.1 % (1.7-9.3); % Neutrophils 48.9 % (42.2-75.2); Absolute Basophils 0.1 10^3/uL (0-0.2); Absolute Eosinophils 0.5 10^3/uL (0-0.7); Absolute Lymphocytes 1.6 10^3/uL (1.2-3.4); Absolute Monocytes 0.7 10^3/uL (0.1-0.6); Absolute Neutrophils 2.7 10^3/uL (1.4-6.5); Hematocrit 29.9 % (37.0-47.0); Mean Corp Hgb Conc. 33.4 g/dL (33.0-37.0); Mean Corpuscular Hgb 27.9 pg (27.0-31.0); Mean Corpuscular Volume 83.3 fL (81.0-99.0); Mean Platelet Volume 8.8 fL (7.4-10.4); Nucleated Red Blood Cells % 0 %; Platelet Count 243 10^3/uL (130-400); Red Blood Cell Count 3.59 10^6/uL (4.20-5.40); Red Cell Dist. Width 15.8 % (11.5-14.5); White Blood Cell Count 5.6 10^3/uL (4.8-10.8)
[2024-06-28 12:23] LABS: Blood Urea Nitrogen 19 mg/dl (7-17); Calcium 8.6 mg/dl (8.4-10.2); Carbon Dioxide 28 mmol/L (22-30); Chloride 99 mmol/L (98-107); Glucose 93 mg/dl (70-99); Potassium 4.5 mmol/L (3.5-5.1); Sodium 135 mmol/L (135-145); eGFR > 60.00
== END ==
LOC: OLABP 11:30
PROVIDERS: ATTENDING PHYSICIAN Family Medicine
DX: K57.90 Diverticulosis of intestine, part unspecified, without perforation or abscess without bleeding (principal); E78.5 Hyperlipidemia, unspecified; I10 Essential (primary) hypertension; K52.9 Noninfective gastroenteritis and colitis, unspecified; K55.9 Vascular disorder of intestine, unspecified; I48.21 Permanent atrial fibrillation
CPT/HCPCS: 36415; 80048; 85025

== ENCOUNTER → 2024-07-05 10:34 | Outpatient (REF) | payer MEDICARE, OTHER, SELFPAY ==
[2024-07-05 11:39] LABS: % Basophils 0.8 % (0-2); % Eosinophils 6.3 % (0-6); % Immature Granulocytes 0.3 % (0-0.5); % Lymphocytes 32.8 % (20.5-51.1); % Neutrophils 48.8 % (42.2-75.2); Absolute Basophils 0.1 10^3/uL (0-0.2); Absolute Eosinophils 0.4 10^3/uL (0-0.7); Absolute Monocytes 0.7 10^3/uL (0.1-0.6); Hematocrit 33.1 % (37.0-47.0); Hemoglobin 11.1 g/dL (12.0-16.0); Mean Corp Hgb Conc. 33.5 g/dL (33.0-37.0); Mean Corpuscular Hgb 26.7 pg (27.0-31.0); Mean Corpuscular Volume 79.8 fL (81.0-99.0); Mean Platelet Volume 9.1 fL (7.4-10.4); Nucleated Red Blood Cells % 0 %; Platelet Count 269 10^3/uL (130-400); Red Blood Cell Count 4.15 10^6/uL (4.20-5.40); Red Cell Dist. Width 16.3 % (11.5-14.5); White Blood Cell Count 6.1 10^3/uL (4.8-10.8)
[2024-07-05 11:42] LABS: ALT (SGPT) 17 U/L (0-35); AST (SGOT) 25 U/L (14-36); Albumin 3.6 g/dl (3.5-5.0); Alkaline Phosphatase 112 U/L (38-126); Blood Urea Nitrogen 15 mg/dl (7-17); Calcium 9.3 mg/dl (8.4-10.2); Carbon Dioxide 27 mmol/L (22-30); Chloride 100 mmol/L (98-107); Glucose 98 mg/dl (70-99); HDL Cholesterol 49 mg/dl; LDL Cholesterol, Calculated 45 mg/dl; Potassium 4.6 mmol/L (3.5-5.1); Sodium 138 mmol/L (135-145); Total Bilirubin 0.7 mg/dl (0.2-1.3); Total Cholesterol 114 mg/dl (50-199); Total Protein 6.7 g/dl (6.3-8.2); Triglyceride 103 mg/dl (10-149); Very Low Density Lipoprotein 20 mg/dl (0-30); eGFR > 60.00
== END ==
LOC: OLABPV 10:34
PROVIDERS: ATTENDING PHYSICIAN Family Medicine
DX: E78.2 Mixed hyperlipidemia (principal); D64.9 Anemia, unspecified
CPT/HCPCS: 36415; 80053; 80061; 85025

== ENCOUNTER 2024-11-15 07:31 | Inpatient (IN) | payer MEDICARE, OTHER, SELFPAY ==
[2024-11-11] VITALS (7 sets, daily range): BP systolic 117–166; BP diastolic 67–100; BMI 23.9; BMI 23.1
[2024-11-11 09:05] LABS: % Basophils 0.1 % (0-2); % Immature Granulocytes 0.3 % (0-0.5); % Lymphocytes 5.9 % (20.5-51.1); % Monocytes 4.2 % (1.7-9.3); % Neutrophils 89.5 % (42.2-75.2); Absolute Lymphocytes 0.6 10^3/uL (1.2-3.4); Absolute Monocytes 0.4 10^3/uL (0.1-0.6); Absolute Neutrophils 8.9 10^3/uL (1.4-6.5); Hematocrit 39.9 % (37.0-47.0); Mean Corp Hgb Conc. 32.6 g/dL (33.0-37.0); Mean Corpuscular Hgb 27.1 pg (27.0-31.0); Mean Corpuscular Volume 83.1 fL (81.0-99.0); Mean Platelet Volume 8.5 fL (7.4-10.4); Nucleated Red Blood Cells % 0 %; Platelet Count 230 10^3/uL (130-400); Red Cell Dist. Width 15.9 % (11.5-14.5); White Blood Cell Count 9.9 10^3/uL (4.8-10.8)
[2024-11-11 09:17] LABS: PT 27.8 Sec (11.4-14.6)
[2024-11-11 09:23] LABS: ALT (SGPT) 18 U/L (0-35); AST (SGOT) 29 U/L (14-36); Albumin 4.4 g/dl (3.5-5.0); Alkaline Phosphatase 115 U/L (38-126); Blood Urea Nitrogen 24 mg/dl (7-17); Calcium 9.2 mg/dl (8.4-10.2); Carbon Dioxide 26 mmol/L (22-30); Chloride 97 mmol/L (98-107); Estimated Creatinine Clearance 61 ml/min; Glucose 155 mg/dl (70-99); Sodium 137 mmol/L (135-145); Total Bilirubin 1.8 mg/dl (0.2-1.3); Total Protein 7.9 g/dl (6.3-8.2); eGFR > 60.00
--- NOTE | 2024-11-11 09:24 | ED.GENMED ---
History of Present Illness
General
Chief Complaint: Abdominal Symptoms
Source: patient and ambulance crew
Time Seen by Provider: 11/11/24 08:47
History of Present Illness
History of Present Illness:
89-year-old female sent to the emergency room from [facility] for evaluation of generalized weakness and coffee-ground emesis. Patient does take Xarelto due to A-fib. Patient states over the past 3 to 4 days she has been feeling too weak to even get
into bed. She denies chest pain, abdominal pain, fever or chills. Patient describes about 4-5 episodes of emesis over the past 24 hours. She denies black or bloody stool.
Past History
Past History
ED Past Medical History: Arrthythmia (Atrial fib), Cancer (Skin CA), GERD, HTN and Other (DIVERTICULOSIS, tonic A. fib on Xarelto, syncope, chronic hearing loss, Hemorrhoids, )
ED Past Surgical History: Gynecological (D&C, ), Orthopedic (Bilateral knee cartilage removed, Left shoulder repair) and Other (Cataracts)
Social History
Tobacco: Non-smoker
Alcohol: None
Drug: None
Personal:
Living: assisted living ([facility])
Family History
Family History: Negative Diabetes, Hypertension or CAD
Phy Exam
Physical Exam
Physical Exam:
General: Awake, Alert, Oriented X3. Appears chronically ill but in no acute distress
Vitals: Afebrile
Head: Atraumatic
Eyes: Pupils equal, EOMI
Throat: Airway intact, no exudates
Neck: Trachea midline
Lungs: Clear and equal b/l
Heart: Regular rate, no murmurs
Abd: Soft, Nontender, No pulsatile mass
Rectal: No stool in the rectal vault
Neuro: Nonfocal
Skin: Warm, dry, no rash
Extremities: pulses equal b/l, no edema
Course
Orders/Labs/Results
Orders:
Orders
11/11/24 08:55
Electrocardiogram (*1) Urgent
Reason for Study: Fatigue / Weakness
EKG- Treatment ONCE
11/11/24 08:56
Type And Crossmatch [Type+Screen] Urgent
11/11/24 08:57
Complete Blood Count/With Diff Urgent
Comprehensive Metabolic Panel Urgent
PTT Urgent
Prothrombin Time Urgent
11/11/24 09:26
0.9% Sodium Chloride 1000 ml [Nss] 1,000 ml IV BOLUS
11/11/24 09:35
COVID-19 Antigen Urgent
Source: Nasal Swab
Influenza A+B Rapid Molecular Urgent
MAGY Source: Nasal Swab
Specimen Description:
11/11/24 09:43
Urinalysis Reflex To Culture Urgent
Date Specimen was Collected: 11/11/24
Time Specimen was Collected: 09:37
Urine Microscopic Reflex Cult Urgent
Urine Culture Urgent
MAGY Source: U
Specimen Description:
Date Specimen was Collected: 11/11/24
Time Specimen was Collected: 09:37
11/11/24 11:56
IV Insert/Care/Rem.- Treatment PRN
Pantoprazole [Protonix IV] 80 mg IV NOW STA
11/11/24 12:29
Admit/Transfer Patient As Directed
Co-Sign Provider:
Level of Care: Observation services
Assign to:: Medical/Surgical
Physician / Group: cristina
Diagnosis: hematemesis
PRN Pain Medication Management As Directed
May give lesser potent ordered pain med per pt: Yes
preference::
Protocol:: Medication orders for pain may be administered in a
manner that supports deferring to patient preference
when the pt is:
- Requesting an ordered lesser potent pain medication.
Least to most potent pain medications are defined
as: acetaminophen < NSAID < tramadol < opioids
(morphine, oxycodone, hydromorphone).
- Requesting a lesser dose of the same medication IF
ORDERED.
- Requesting a less intrusive route of administration
if both routes are prescribed by the provider (PO <
IV).
11/11/24 12:30
Code Status As Directed
Resuscitation Status: Full Code
Abnormal Lab Results
11/11/24 11/11/24
08:57 09:43
MCHC 32.6 L g/dL
(33.0-37.0)
RDW 15.9 H %
(11.5-14.5)
Absolute Neuts (auto) 8.9 H 10^3/uL
(1.4-6.5)
Absolute Lymphs (auto) 0.6 L 10^3/uL
(1.2-3.4)
Neutrophils % 89.5 H %
(42.2-75.2)
Lymphocytes % 5.9 L %
(20.5-51.1)
PT 27.8 H Sec
(11.4-14.6)
APTT 46.0 H Sec
(23.4-35.0)
Chloride 97 L mmol/L
(98-107)
BUN 24 H mg/dl
(7-17)
Glucose 155 H mg/dl
(70-99)
Total Bilirubin 1.8 H mg/dl
(0.2-1.3)
Urine Ketones 3+ A
(Negative)
Ur Occult Blood Reflex 3+ A
(Negative)
Urine Nitrite (Reflex) Positive A
(Negative)
Leukocyte Esterase Rfl Trace A
(Negative)
Urine WBC (Reflex) 60-70 A /HPF
(0-5)
Urine Bacteria (Reflex) Many A
(Negative)
Urine Albumin (Reflex) 3+ A
(Neg - Trace)
11/11/24 08:57
11/11/24 08:57
Vital Signs
Initial and Last Documented VS:
Initial Vital Signs
Temp Pulse Resp Pulse Ox
98.2 F 89 18 97
11/11/24 08:47 11/11/24 08:47 11/11/24 08:47 11/11/24 08:47
Last Documented Vital Signs
Temp Pulse Resp BP Pulse Ox
98.2 F 71 21 164/78 98
11/11/24 08:47 11/11/24 13:30 11/11/24 13:30 11/11/24 12:00 11/11/24 13:30
MDM/Problems Addressed
Differential Diagnosis Includes:
Gastritis, peptic ulcer disease, viral illness causing nausea vomiting
MDM/Problems Addressed:
Patient presents after having episodes of vomiting at her facility. Vomitus described as coffee-ground. No stool on rectal exam here to heme test. However patient's had no further episodes here in the emergency room. She does take Xarelto making
her at high risk should she have upper GI bleeding. Patient is hemodynamically stable. Hemoglobin is above last measurement here in June. Overall my suspicion is low that she has an upper GI bleed but feel we should observe her for an
extended period time given her use of Xarelto.
*Pulse Oximetry
Patient hypoxic: no
*EKG
Heart Rate: 91
Rate: normal
Rhythm: a-fib
Interval: normal interval
QRS Pattern: normal QRS
Ischemia: non-specific ST changes
*Stacker Straightener Interpretation
Rate: normal
Interpretation: abnormal
Heart Rate: 91
Rhythm: a-fib
*Critical Care Note
Total Time (30-74mins, 75-104mins- exclusive of procedures): Not Applicable
ED Attending Note
-
Portions of this chart may have been created with voice recognition software.� Occasional wrong word or��sound alike� substitutions may have occurred due to the inherent limitations of voice recognition software.
Discharge Plan
Departure
Patient Disposition: Admit
Date of Disposition: 11/11/24
Time of Disposition: 12:09
Admit to: Med/Surg
Presentation/result/management discussed w/ accepting MD/DO: Hospitalist
Condition: Fair
Discharge Problem:
Nausea & vomiting, Coffee ground emesis
Interventions
Interventions:
*Risk Screen - Suicide Last Done: 11/11/24 08:58
*General Assessment Last Done: 11/11/24 08:58
*Neglect/Abuse Screening Last Done: 11/11/24 08:58
*ED COVID-19 Vaccine History Last Done: 11/11/24 08:58
XF-Vdzmcu-Brousydrzq Assessment Last Done: 11/11/24 09:16
[2024-11-11] MEDS: NSS 1000 IV (09:47)
[2024-11-11 09:59] LABS: COVID-19 Antigen Negative (Negative)
[2024-11-11 10:15] LABS: Urine Albumin 3+ (Neg - Trace); Urine Bilirubin Negative (Negative); Urine Character Clear (Clear); Urine Color Yellow; Urine Glucose Negative (Negative); Urine Ketone 3+ (Negative); Urine Leukocyte Trace (Negative); Urine Nitrite Positive (Negative); Urine Occult Blood 3+ (Negative); Urine Specific Gravity 1.025 (<1.030); Urine Urobilinogen Negative (Neg - 1+)
[2024-11-11 10:31] LABS: Urine Bacteria Many (Negative); Urine Squamous Cell >30 /LPF (Few)
[2024-11-11 10:32] LABS: Urine Red Blood Cell 0-2 /HPF (0-2); Urine White Cell 60-70 /HPF (0-5)
[2024-11-11 10:33] LABS: Urine Granular Cast 0-2 /LPF (0)
[2024-11-11] MEDS: PROTONIX IV 80 MG IV (12:00)
--- NOTE | 2024-11-11 12:32 | HPS.HSE ---
Family Physician
-
Family Physician: Wale Chang
Chief Complaint
-
hematemesis
History of Present Illness
89-year-old female past medical history of hypertension, permanent atrial fibrillation on Xarelto, hyperlipidemia, GERD, presenting with maroon-colored emesis as well as a fall. She states that she fell yesterday and got stuck when she fell off the
bed and had to use her call dos santos to get help. She denies passing out or hitting her head or having any injury.
She also states that yesterday she vomited 4-5 times and had maroon-colored material in the vomit. She denies any vomiting today. She denies any changes in her bowel movements or blood in the stool or black stool. Her last bowel movement was 2-3
days ago. She denies any pain in the throat or chest. She denies shortness of breath or chest pain or dizziness.
She states that she had had a colonoscopy in the past but does not know when.
Denies smoking or alcohol use.
Medical History
Past Medical History
Past Medical History: Reports Other ( hypertension, permanent atrial fibrillation on Xarelto, hyperlipidemia, GERD)
Past Surgical History: Reports Other ( Gynecological (D&C, ), Orthopedic (Bilateral knee cartilage removed, Left shoulder repair) and Other (Cataracts))
Social History
Tobacco: Non-smoker
Alcohol: None
Drug: None
Family History
Family History: Not pertinent
Allergies / Home Medications
Allergies reflects when Allergies were last updated in [employer].
Home Medications with original date entered in [employer]
Allergy/Medication List:
Allergies
Allergy/AdvReac Type Severity Reaction Status Date / Time
valsartan Allergy Severe anaphylaxis Verified 06/08/24 21:28
is
latex Allergy Rash Verified 06/06/24 20:46
Home Medications
Bifidobacterium infantis 4 mg capsule (Align (B.infantis)) 4 mg PO DAILY Gastrointestinal Issue 03/03/24
atorvastatin 10 mg tablet 10 mg PO DAILY High Cholesterol 03/03/24
carboxymethylcellulose sodium 1 % eye liquid gel drops 1 drp BOTH EYES DAILYPRN PRN dry eyes 03/03/24
diltiazem HCl 120 mg capsule,extended release 24 hr 120 mg PO DAILY Arrhythmia 03/03/24
furosemide 20 mg tablet 20 mg PO Q48H@0800 Fluid Retention/Swelling 03/03/24
rivaroxaban 20 mg tablet (Xarelto) 20 mg PO QPM Blood Clot Prevention/Tx 06/07/24
amoxicillin 875 mg-potassium clavulanate 125 mg tablet 1 tab PO BID #6 tabs 06/10/24
Review of Systems
-
History Source: Patient
A 12 point ROS was completed and negative except as noted: Yes
Constitutional: Reports No Symptoms
EENT: Reports No Symptoms
Respiratory: Reports No Symptoms
Cardiac: Reports No Symptoms
Abdomen/GI: Reports See HPI
: Reports No Symptoms
Musculoskeletal: Reports No Symptoms
Skin: Reports No Symptoms
Neurological: Reports No Symptoms
Endocrine: Reports No Symptoms
Hematologic/Lymphatic: Reports No Symptoms
Psych: Reports No Symptoms
Physical Exam
Vital Signs
Vital Signs
Temp Pulse Resp BP Pulse Ox
98.2 F 78 12 143/82 98
11/11/24 08:47 11/11/24 11:30 11/11/24 11:30 11/11/24 11:00 11/11/24 11:30
Physical Exam
General: Well Developed, Well Nourished and No Apparent Distress
HEENT: NormoCephalic, Moist mucous membranes and Atraumatic
Respiratory: Clear
Cardiac: S1/S2 and Regular Rhythm; No Murmur or Rub
GI: Soft, Non Tender, Non Distended and Normal Bowel Sounds; No Organomegaly
Rectal: Deferred by Provider
Musculoskeletal: No Clubbing, No Cyanosis and No Edema
Skin: No Rash
Neuro: Nonfocal/grossly intact
Laboratory Results
-
11/11/24 08:57
11/11/24 08:57
Laboratory Results
PT 27.8 Sec (11.4-14.6) H 11/11/24 08:57
INR 2.60 11/11/24 08:57
APTT 46.0 Sec (23.4-35.0) H 11/11/24 08:57
Total Bilirubin 1.8 mg/dl (0.2-1.3) H 11/11/24 08:57
AST 29 U/L (14-36) 11/11/24 08:57
ALT 18 U/L (0-35) 11/11/24 08:57
Alkaline Phosphatase 115 U/L (38-126) 11/11/24 08:57
Data Reviewed
-
Lab Data: Labs Reviewed by me
Old Records: Reviewed
Impression/Plan
-
IMPRESSION:
PLAN:
# Hematemesis suggestive of Natalya-Solano tear possibly from vomiting from food poisoning
-No vomiting today
-No stool in rectum to check Hemoccult
-Hemoglobin 13
-Hold Xarelto
-Protonix 40 IV twice daily
-Clear liquid diet
-Monitor hemoglobin and for further bleeding
-Consult GI for further bleeding or drop in hemoglobin
# Fall off of bed
-No pain or injuries or head injury
Permanent atrial fibrillation
-Hold Xarelto
-Continue diltiazem
Essential hypertension
GERD
Hyperlipidemia
-Continue statin
Full code
DVT prophylaxis�SCDs
Clear liquid diet
--- NOTE | 2024-11-11 16:14 | PTCARENOTE ---
Received patient from ED via stretcher. AAOx3, pulled over from stretcher to bed. Assessed and oriented to room. Call dos santos in close reach.
[2024-11-11] MEDS: NSS (PRESERVATIVE FREE) 10 ML IV (20:30)
[2024-11-11] MEDS: PROTONIX IV 40 MG IV (20:31)
[2024-11-12 00:14] VITALS: BP 117/87
[2024-11-12 07:21] LABS: % Basophils 0.5 % (0-2); % Eosinophils 2.3 % (0-6); % Immature Granulocytes 0.4 % (0-0.5); % Lymphocytes 17.6 % (20.5-51.1); % Monocytes 10.5 % (1.7-9.3); % Neutrophils 68.7 % (42.2-75.2); Absolute Eosinophils 0.2 10^3/uL (0-0.7); Absolute Lymphocytes 1.3 10^3/uL (1.2-3.4); Absolute Monocytes 0.8 10^3/uL (0.1-0.6); Hemoglobin 10.4 g/dL (12.0-16.0); Mean Corp Hgb Conc. 33.5 g/dL (33.0-37.0); Mean Corpuscular Hgb 27.7 pg (27.0-31.0); Mean Corpuscular Volume 82.7 fL (81.0-99.0); Nucleated Red Blood Cells % 0 %; Platelet Count 192 10^3/uL (130-400); Red Blood Cell Count 3.75 10^6/uL (4.20-5.40); Red Cell Dist. Width 16.1 % (11.5-14.5); White Blood Cell Count 7.3 10^3/uL (4.8-10.8)
[2024-11-12 07:35] VITALS: BP 145/93
[2024-11-12 07:58] LABS: ALT (SGPT) 12 U/L (0-35); AST (SGOT) 24 U/L (14-36); Albumin 3.1 g/dl (3.5-5.0); Alkaline Phosphatase 93 U/L (38-126); Blood Urea Nitrogen 31 mg/dl (7-17); Calcium 8.8 mg/dl (8.4-10.2); Carbon Dioxide 26 mmol/L (22-30); Chloride 100 mmol/L (98-107); Estimated Creatinine Clearance 46 ml/min; Glucose 92 mg/dl (70-99); Potassium 3.7 mmol/L (3.5-5.1); Sodium 132 mmol/L (135-145); Total Bilirubin 1.5 mg/dl (0.2-1.3); Total Protein 5.9 g/dl (6.3-8.2); eGFR > 60.00
[2024-11-12] MEDS: CARDIZEM CD 120 MG PO (08:18)
[2024-11-12] MEDS: LIPITOR 10 MG PO (08:18)
[2024-11-12] MEDS: LASIX 20 MG PO (08:18)
[2024-11-12] MEDS: PROTONIX IV 40 MG IV ×2 (08:19→19:24)
[2024-11-12] MEDS: NSS (PRESERVATIVE FREE) 10 ML IV ×2 (08:19→19:24)
[2024-11-12] MEDS: TYLENOL 650 MG PO ×2 (08:25→19:34)
--- NOTE | 2024-11-12 09:38 | CM ---
CM following re: discharge planning.
Reviewed pt's chart, met with pt.
Pt is an 89 year old female, admitted with OBS status and primary dx of hematemesis. OBS status explained to the pt, HERNANDEZ letter signed, placed on chart, pt has a copy.
Pt reports she lives alone in an independent apartment at [facility], has 2 supportive children, son Bairon lives nearby and helps as needed. Pt reports she ambulates with a walker, was at [facility] in May last year. Pt stated she feels very
weak and she thinks she will need to go to [facility] before returning back to her apartment. Pt is aware of OBS status limitation of getting a SNF level of care.
PT and OT will evaluate the pt to determine a level of care at discharge.
PCP: Wale Chang
Pharmacy: [facility].
D/C plan: most likely home with VN services if does not qualify for SNF level of care.
CM will follow with discharge plan updates as hospitalization progresses
--- NOTE | 2024-11-12 10:45 | W.PN.HOSP.TC ---
Today's Communication/Plan
-
see bold
Assessment / Plan
Assessment / Plan
Gen: NAD, Awake and alert
Eyes: EOMI, PERRLA, no scleral icterus.
Neck: supple.
CV: RRR, +S1/S2, no m/r/g.
Resp: CTAB, no rales, wheezes, or rhonchi.
Abd: +BS, soft, NT, ND
Skin: No rashes.
Neuro: CN 2-12 intact, non-focal.
Psych: Normal mood and affect.
Acute blood loss anemia due to hematemesis:
-likely Natalya-Solano tear possibly from vomiting from food poisoning
-exacerbated by Xarelto (on hold)
-cont IV protonix
-clears
-with drop in Hb c/s GI
Other problems:
Fall off of bed: No pain or injuries or head injury
Permanent atrial fibrillation: Holding Xarelto, cont Cardizem
Essential hypertension: cont Cardizem
GERD: cont PPI
Hyperlipidemia: cont statin
FULL/SCDs
Anticipated Discharge: 24 - 48 hours
Subjective/Interval History
-
Date of Service: November 12, 2024
No further hematemesis. Denies abd pain. c/o back pain.
Objective Data
-
Labs:
Laboratory Results
11/12/24
06:33
WBC 7.3
Hgb 10.4 L
Hct 31.0 L
Plt Count 192
Sodium 132 L
Potassium 3.7
Chloride 100
Carbon Dioxide 26
BUN 31 H
Creatinine 0.8
Glucose 92
Calcium 8.8
Total Bilirubin 1.5 H
AST 24
ALT 12
Alkaline Phosphatase 93
Vital Signs:
Vital Signs
Temp Pulse Resp BP Pulse Ox
98.3 F 73 18 145/93 95
11/12/24 07:35 11/12/24 07:35 11/12/24 07:35 11/12/24 07:35 11/12/24 07:35
I&O
11/11/24 11/12/24 11/13/24
06:59 06:59 06:59
Intake Total 360 / 360
Balance 360 / 360
--- NOTE | 2024-11-12 11:54 | CON.GI ---
Consultation
-
Date/Time Consultation Requested: 11/12/24 1054
Date/Time Consultation Performed: 11/12/24 1115
Requesting Provider: Dr Frederick
Performing Provider: Dr Shayne Gill / Susan Andrews PA-C
Reason for Consultation: hematemesis
Medical History
Chief Complaint / HPI
Chief Complaint: hematemesis
History of Present Illness:
This is an 89 year old female with a past medical history of atrial fibrillation (on Xarelto), HTN, hyperlipidemia who presented to the ER from [facility] after she had multiple episodes of hematemesis, described as maroon colored material in the
vomit. In the ER labs were stable with hemoglobin of 13.0 and she had no further episodes of any nausea/vomiting or hematemesis. Xarelto was held and she was admitted for observation. Hgb did drop today, from 13.0 to 10.4. She denies any melena or
BRBPR. She has no abdominal pain or chest pain. Patient denies heartburn/reflux, dysphagia or odynophagia; no prior history of GERD. She has never had an endoscopy. She did have a colonoscopy with Dr. Patterson in 2013. She does not smoke or drink
alcohol. Occasional NSAID use.
Past Medical History
Past Medical History: HTN, Hypercholesterolemia and Other (permanent atrial fibrillation (on Xarelto))
Past Surgical History: Other (cataracts, D&C, left shoulder repair, knee surgery)
Social History
Tobacco: Non-Smoker
Alcohol: None
Allergies / Home Medications
Allergy/AdvReac Type Severity Reaction Status Date / Time
valsartan Allergy Severe anaphylaxis Verified 06/08/24 21:28
is
latex Allergy Rash Verified 06/06/24 20:46
�Medication �Instructions �Recorded
atorvastatin 10 mg tablet 10 mg PO DAILY High Cholesterol 03/03/24
diltiazem HCl 120 mg 120 mg PO DAILY Arrhythmia 03/03/24
capsule,extended release 24 hr
furosemide 20 mg tablet 20 mg PO Q48H@0800 Fluid 03/03/24
Retention/Swelling
rivaroxaban 20 mg tablet (Xarelto) 20 mg PO QPM Blood Clot 06/07/24
Prevention/Tx
acetaminophen 325 mg tablet 650 mg PO Q6HPRN PRN mild pain 11/11/24
(Tylenol)
Review of Systems
-
History Source: Patient
All other systems: A 12 pt ROS was Negative except as stated above in HPI
Vital Signs
Temp Pulse Resp BP Pulse Ox
98.3 F 73 18 145/93 95
11/12/24 07:35 11/12/24 07:35 11/12/24 07:35 11/12/24 07:35 11/12/24 07:35
Physical Exam
Exam
General: Well Developed, Well Nourished and No Apparent Distress
Respiratory: Clear
Cardiac: Regular Rhythm
GI: Soft, Non Tender, Non Distended and Normal Bowel Sounds
Skin: Warm and Dry
Neuro: Awake, Alert and Oriented
Psych: Calm
Results
WBC 7.3 10^3/uL (4.8-10.8) 11/12/24 06:33
Hgb 10.4 g/dL (12.0-16.0) L 11/12/24 06:33
Hct 31.0 % (37.0-47.0) L 11/12/24 06:33
MCV 82.7 fL (81.0-99.0) 11/12/24 06:33
Plt Count 192 10^3/uL (130-400) 11/12/24 06:33
Absolute Neuts (auto) 5.0 10^3/uL (1.4-6.5) 11/12/24 06:33
PT 27.8 Sec (11.4-14.6) H 11/11/24 08:57
INR 2.60 11/11/24 08:57
APTT 46.0 Sec (23.4-35.0) H 11/11/24 08:57
Sodium 132 mmol/L (135-145) L 11/12/24 06:33
Potassium 3.7 mmol/L (3.5-5.1) 11/12/24 06:33
Chloride 100 mmol/L (98-107) 11/12/24 06:33
Carbon Dioxide 26 mmol/L (22-30) 11/12/24 06:33
BUN 31 mg/dl (7-17) H 11/12/24 06:33
Creatinine 0.8 mg/dL (0.6-1.0) 11/12/24 06:33
Calcium 8.8 mg/dl (8.4-10.2) 11/12/24 06:33
Total Bilirubin 1.5 mg/dl (0.2-1.3) H 11/12/24 06:33
AST 24 U/L (14-36) 11/12/24 06:33
ALT 12 U/L (0-35) 11/12/24 06:33
Alkaline Phosphatase 93 U/L (38-126) 11/12/24 06:33
Diagnostic Image Results:
Prior GI Procedures:
EGD: never
Colonoscopy:
06/2013, Dr. Patterson:
Diverticulosis in the sigmoid colon.
- One 2 mm polyp in the rectum. (hyperplastic)
- One 9 mm polyp in the sigmoid colon. (adenoma)
- One 3 mm polyp in the ascending colon. (adenoma). Repeat 5 years.
Assessment / Plan
-
89 year old female with a history of a fib (on Xarelto) who had 4-5 episodes of hematemesis prior to arrival in the ER, without any further recurrence. With initial stable hemoglobin of 13.0, but this did drop to 10.4 today. She has no abdominal
pain, nausea, vomiting, melena or hematochezia. No chest pain or throat pain. Xarelto has been held.
IMPRESSION / PLAN:
Hematemesis, resolved now
- etiology secondary to possible Natalya Solano tear
- she currently feels OK without any further vomiting
- continue to hold Xarelto
- NPO
- PPI gtt
- continue to trend Hgb
- consider endoscopy if Hgb continues to drop or with any recurrence, but will hold off on EGD at this time (patient prefers not to have EGD)
Other medical problems managed as per hospitalist.
-
-
Thank you for consultation and allowing me to participate in the patient's care. Please call the dictionary editor GI physician during the after hours with any questions or concerns.
[2024-11-12 15:34] VITALS: BP 135/73
[2024-11-12 23:57] VITALS: BP 141/78
[2024-11-13] MEDS: TYLENOL 650 MG PO ×2 (05:22→20:21)
--- NOTE | 2024-11-13 06:25 | W.PN.GI.CBS2 ---
Today's Communication / Plan
-
No signs of recurrent GI bleeding since admission. Suspicious for resolved alisha-solano tear as source of her presentation. Hgb remains stable without any need for transfusions. Long discussion with patient, wishes to defer EGD which is reasonable.
Okay to restart a/c from GI standpoint and continue IV PPI. See rest of care as outlined below. GI will sign-off, please recontact with any questions or concerns.
Assessment / Plan
-
#Nausea/Vomiting
#Hematemesis- RESOLVED
#Mild Normocytic Anemia
#Acute Blood Loss w/out need for transfusions
#A Fib (on xarelto)
Ms Lawrence is a pleasant 89 year old female with a history of a fib (on Xarelto) who had 4-5 episodes of hematemesis prior to arrival in the ER, without any further recurrence. Etiology of prior small-volume hematemesis likely secondary to suspected
Alisha-Solano tear given her preceding non-bilious, non-bloody emesis likely secondary due to prior viral gastroenteritis versus food poisoning. Differential also includes esophagitis versus gastroduodenitis. Much less likely PUD or other concern
for a brisk UGIB. She has not had further episodes since her admission with her last episode back on 11/10/2024. She is without any melena or maroon-colored stools and her last bowel movement was 3 days ago which is further reassuring. Given her
recent drop in hemoglobin from 13s -> 10s, favor keeping n.p.o. while holding her Xarelto. She did receive IV fluids in the ED which may have resulted in her slight drop in her hemoglobin and decrease in all cell lines. No further nausea, vomiting
or other abdominal pain or epigastric discomfort. However, given her elevated BUN and drop in Hgb, favor keeping n.p.o. while monitoring for signs of recurrent GI bleeding while on IV PPI.
Had long discussion with patient this AM regarding risks and benefits of pursuing a potential EGD. Certainly reasonable to hold off at this time given her overall stable Hgb (and suspect previous hemoconcentration on prior CBC on admission) and
without any overt bloody stools or further episodes of coffee ground emesis and/or hematemesis since her hospitalization. However, she is on Xarelto and did discuss the option of looking if this were to be restarted for further prognostic value.
After further discussions, patient wishes to hold off which is reasonable.
Recommendations:
- Regular diet as tolerated
- Trend Hgb with CBC q daily given stable H/h
- IV PPI 40 mg BiD while inpatient
- Favor empiric Pantoprazole 40 mg BiD for 8 weeks for healing and then once indefinitely given the need for a/c and prior hematemesis
- No plans to pursue an EGD after reviewing risks and benefits with patient after long discussion this morning (understands potential of missing something as well- ie lesion, mass but very unlikely)
- If patient were to have recurrent hematemesis or other concern for recurrent GI bleeding, she would be amenable to proceeding
- Okay to resume patient's xarelto this evening while in-house. Favor of monitoring until tomorrow while her a/c has been restarted
- Monitor for signs of overt GI bleeding while inpatient, notify GI of any concern
- Strict avoidance of all NSAIDs
- Will help coordinate close outpatient GI follow-up prior to discharge, have sent a message to our office
- IV anti-emetics PRN
- Rest of care per primary team
Discussed with primary internal medicine team this AM. GI will sign-off, please recontact with any questions or concerns.
Subjective
Subjective
Date of Service: November 13, 2024
- No acute events overnight, HD-stable
Feeling well, resting comfortably this AM. Denies any dark stools or bloody bowel movements. Believes her last BM was two-three days ago, discussed with nursing and no reported bloody stools. Had long discussion with patient this AM regarding risks
and benefits of pursuing a potential EGD. Certainly reasonable to hold off an EGD given her stable Hgb and without any overt bloody stools or further episodes of coffee ground emesis and/or hematemesis. However, she is on Xarelto and did discus the
option of looking if this were to be restarted for further prognostic value. After further discussions, patient wishes to hold off.
Objective
Data Reviewed
Laboratory Data:
Laboratory Results
11/12/24 19:25
11/12/24 06:33
Laboratory Results
PT 27.8 Sec (11.4-14.6) H 11/11/24 08:57
INR 2.60 11/11/24 08:57
APTT 46.0 Sec (23.4-35.0) H 11/11/24 08:57
Total Bilirubin 1.5 mg/dl (0.2-1.3) H 11/12/24 06:33
AST 24 U/L (14-36) 11/12/24 06:33
ALT 12 U/L (0-35) 11/12/24 06:33
Alkaline Phosphatase 93 U/L (38-126) 11/12/24 06:33
Vital Signs and I&O:
Vital Signs
Temp Pulse Resp BP Pulse Ox
98.4 F 75 18 141/78 95
11/12/24 23:57 11/12/24 23:57 11/12/24 23:57 11/12/24 23:57 11/12/24 23:57
I&O
11/11/24 11/12/24 11/13/24
06:59 06:59 06:59
Intake Total 720 / 720
Balance 720 / 720
Physical Exam
Physical Exam
HEENT: Anicteric and Moist mucous membranes
Pulmonary: Other (Normal WOB on room air)
GI: Soft, Non Distended and Non Tender
Neuro: Non Focal
[2024-11-13 07:48] VITALS: BP 158/83
--- NOTE | 2024-11-13 07:57 | W.PN.HOSP.TC ---
Today's Communication/Plan
-
see bold, ADAT, restart Xarelto tonight, if Hb stable in AM without recurrent hematemesis can d/c tomorrow
Assessment / Plan
Assessment / Plan
Gen: NAD, Awake and alert
Eyes: EOMI, PERRLA, no scleral icterus.
Neck: supple.
CV: irreg/irreg, +S1/S2, no m/r/g.
Resp: CTAB anteriorly, no rales, wheezes, or rhonchi.
Abd: remains +BS, soft, NT, ND
Skin: No rashes.
Neuro: CN 2-12 intact, non-focal.
Psych: Normal mood and affect.
Acute blood loss anemia due to hematemesis:
-likely Natalya-Solano tear possibly from vomiting from food poisoning
-exacerbated by Xarelto (on hold)
-cont IV protonix
-GI following
-Hb stable, no further hematemesis.
-restart diet
-case discussed with Dr. Gill. Pt did not want EGD. Can restart Xarelto this evening.
Other problems:
Fall off of bed: No pain or injuries or head injury
Permanent atrial fibrillation: restart Xarelto this evening as above, cont Cardizem
Essential hypertension: cont Cardizem
GERD: cont PPI
Hyperlipidemia: cont statin
FULL/SCDs
Anticipated Discharge: Within 24 hours
Subjective/Interval History
-
Date of Service: November 13, 2024
No further hematemesis.
Objective Data
-
Labs:
Laboratory Results
11/12/24 11/13/24
19 06:52
WBC Cancelled Pending
Hgb Cancelled Pending
Hct Cancelled Pending
Plt Count Cancelled Pending
Vital Signs:
Vital Signs
Temp Pulse Resp BP Pulse Ox
98.4 F 75 18 141/78 95
11/12/24 23:57 11/12/24 23:57 11/12/24 23:57 11/12/24 23:57 11/12/24 23:57
I&O
11/12/24 11/13/24 11/14/24
06:59 06:59 06:59
Intake Total 1200 / 1200
Balance 1200 / 1200
[2024-11-13] MEDS: LIPITOR 10 MG PO (08:15)
[2024-11-13] MEDS: NSS (PRESERVATIVE FREE) 10 ML IV ×2 (08:15→20:10)
[2024-11-13] MEDS: PROTONIX IV 40 MG IV ×2 (08:15→20:10)
[2024-11-13] MEDS: CARDIZEM CD 120 MG PO (08:15)
[2024-11-13 08:16] LABS: Hematocrit 32.4 % (37.0-47.0); Hemoglobin 10.9 g/dL (12.0-16.0); Mean Corp Hgb Conc. 33.6 g/dL (33.0-37.0); Mean Corpuscular Hgb 27.8 pg (27.0-31.0); Mean Corpuscular Volume 82.7 fL (81.0-99.0); Mean Platelet Volume 9.1 fL (7.4-10.4); Platelet Count 195 10^3/uL (130-400); Red Blood Cell Count 3.92 10^6/uL (4.20-5.40); Red Cell Dist. Width 15.9 % (11.5-14.5); White Blood Cell Count 5.7 10^3/uL (4.8-10.8)
[2024-11-13 08:48] VITALS: BP 158/83
[2024-11-13 15:30] VITALS: BP 128/59
[2024-11-13 16:04] VITALS: BP 144/78; PULSE 81; O2SAT 97
[2024-11-13] MEDS: XARELTO 20 MG PO (17:31)
[2024-11-13 23:43] VITALS: BP 139/68
[2024-11-14] MEDS: TYLENOL 650 MG PO (04:50)
[2024-11-14 07:30] VITALS: BP 146/84
[2024-11-14 07:41] LABS: Hematocrit 32.6 % (37.0-47.0); Hemoglobin 10.9 g/dL (12.0-16.0); Mean Corp Hgb Conc. 33.4 g/dL (33.0-37.0); Mean Corpuscular Hgb 27.6 pg (27.0-31.0); Mean Corpuscular Volume 82.5 fL (81.0-99.0); Platelet Count 216 10^3/uL (130-400); Red Blood Cell Count 3.95 10^6/uL (4.20-5.40); Red Cell Dist. Width 15.6 % (11.5-14.5); White Blood Cell Count 5.2 10^3/uL (4.8-10.8)
[2024-11-14 08:07] LABS: Blood Urea Nitrogen 15 mg/dl (7-17); Calcium 8.3 mg/dl (8.4-10.2); Carbon Dioxide 30 mmol/L (22-30); Chloride 97 mmol/L (98-107); Estimated Creatinine Clearance 52 ml/min; Glucose 104 mg/dl (70-99); Sodium 134 mmol/L (135-145); eGFR > 60.00
[2024-11-14 08:14] LABS: Potassium 3.7 mmol/L (3.5-5.1)
[2024-11-14 08:31] VITALS: BP 157/69; PULSE 61; O2SAT 98
[2024-11-14] MEDS: LASIX 20 MG PO (09:14)
[2024-11-14] MEDS: CARDIZEM CD 120 MG PO (09:14)
[2024-11-14] MEDS: PROTONIX IV 40 MG IV ×2 (09:14→21:12)
[2024-11-14] MEDS: LIPITOR 10 MG PO (09:14)
[2024-11-14] MEDS: NSS (PRESERVATIVE FREE) 10 ML IV ×2 (09:15→21:12)
[2024-11-14] MEDS: ULTRAM 25 MG PO (11:51)
[2024-11-14 15:10] VITALS: BP 141/71
--- NOTE | 2024-11-14 17:17 | W.PN.HOSP.TC ---
Today's Communication/Plan
-
Assessment / Plan
Assessment / Plan
Gen: NAD, Awake and alert
Eyes: EOMI, PERRLA, no scleral icterus.
Neck: supple.
CV: irreg/irreg, +S1/S2, no m/r/g.
Resp: CTAB anteriorly, no rales, wheezes, or rhonchi.
Abd: remains +BS, soft, NT, ND
MSK: Midline thoracolumbar TTP
Skin: No rashes.
Neuro: CN 2-12 intact, non-focal.
Psych: Normal mood and affect.
Acute blood loss anemia due to hematemesis:
-Appears to have now resolved
-likely Natalya-Solano tear possibly from vomiting from food poisoning
-exacerbated by Xarelto which was on hold but has now been restarted
-Hemoglobin stable
-Tolerating regular diet
-Transition to oral Protonix tomorrow 11/15
-GI following
-Patient declined EGD
Lumbar compression fracture:
-Suspect secondary to multiple falls
-X-ray shows compression at the level of L2
-MRI pending
-Will follow-up with IR regarding possibility of kyphoplasty
Other problems:
Fall off of bed: No pain or injuries or head injury
Permanent atrial fibrillation: restarted Xarelto, cont Cardizem
Essential hypertension: cont Cardizem
GERD: cont PPI
Hyperlipidemia: cont statin
FULL/SCDs
Anticipated Discharge: 24 - 48 hours
Subjective/Interval History
-
Date of Service: November 14, 2024
Ms. Lawrence was seen and examined at bedside's morning. Her hemoglobin levels remained stable and she has had no further hematemesis. She is tolerating p.o. diet. She does complain of ongoing low back pain.
Objective Data
-
Labs:
Laboratory Results
11/14/24
06:37
WBC 5.2
Hgb 10.9 L
Hct 32.6 L
Plt Count 216
Sodium 134 L
Potassium 3.7
Chloride 97 L
Carbon Dioxide 30
BUN 15
Creatinine 0.7
Glucose 104 H
Calcium 8.3 L
Vital Signs:
Vital Signs
Temp Pulse Resp BP Pulse Ox
97.8 F 68 18 141/71 98
11/14/24 15:10 11/14/24 15:10 11/14/24 15:10 11/14/24 15:10 11/14/24 15:10
I&O
11/13/24 11/14/24 11/15/24
06:59 06:59 06:59
Intake Total 1200 / 1200 1620 / 1620
Balance 1200 / 1200 1620 / 1620
Review of Systems
-
History Source: Patient
All other systems: Reviewed and negative
Musculoskeletal: Reports Joint Pain (Low back pain)
Physical Exam
-
General: No Apparent Distress
[2024-11-14] MEDS: XARELTO 20 MG PO (17:50)
[2024-11-14 23:27] VITALS: BP 130/72
[2024-11-15] MEDS: ULTRAM 25 MG PO ×2 (05:55→14:30)
[2024-11-15 07:42] VITALS: BP 146/77
[2024-11-15] MEDS: NSS (PRESERVATIVE FREE) 10 ML IV (08:20)
[2024-11-15] MEDS: LIPITOR 10 MG PO (08:20)
[2024-11-15] MEDS: PROTONIX IV 40 MG IV (08:20)
[2024-11-15] MEDS: CARDIZEM CD 120 MG PO (08:20)
--- NOTE | 2024-11-15 11:30 | CM ---
Pt indicated pts need for SNF at [place].
Spoke with son Tim reviewed PT results.
Son agreed that [facility].
Referral placed Brenda at [facility] aware will need bed.
Reviewed IMM with son and emailed at copy to [email or web address].
PLAN To [facility] after medically ready
[2024-11-15 15:58] VITALS: BP 130/77
--- NOTE | 2024-11-15 16:37 | W.PN.HOSP.TC ---
Today's Communication/Plan
-
Assessment / Plan
Assessment / Plan
Gen: NAD, Awake and alert
Eyes: EOMI, PERRLA, no scleral icterus.
Neck: supple.
CV: irreg/irreg, +S1/S2, no m/r/g.
Resp: CTAB anteriorly, no rales, wheezes, or rhonchi.
Abd: remains +BS, soft, NT, ND
MSK: Midline thoracolumbar TTP
Skin: No rashes.
Neuro: CN 2-12 intact, non-focal.
Psych: Normal mood and affect.
Acute blood loss anemia due to hematemesis:
-Appears to have now resolved
-likely Natalya-Solano tear possibly from vomiting from food poisoning
-exacerbated by Xarelto which was on hold but has now been restarted
-Hemoglobin stable
-Tolerating regular diet
-Transitioned to oral Protonix today 11/15
-GI following
-Patient declined EGD
Lumbar compression fracture:
-Suspect secondary to multiple falls
-X-ray shows compression at the level of L2
-MRI pending
-Will follow-up with IR regarding possibility of kyphoplasty
Other problems:
Fall off of bed: No pain or injuries or head injury
Permanent atrial fibrillation: restarted Xarelto, cont Cardizem
Essential hypertension: cont Cardizem
GERD: cont PPI
Hyperlipidemia: cont statin
FULL/SCDs
Anticipated Discharge: 24 - 48 hours
Subjective/Interval History
-
Date of Service: November 15, 2024
Patient was seen and examined at bedside this morning. No complaints. Awaiting lumbar MRI.
Objective Data
-
Vital Signs:
Vital Signs
Temp Pulse Resp BP Pulse Ox
97.9 F 68 18 146/77 97
11/15/24 07:42 11/15/24 07:42 11/15/24 07:42 11/15/24 07:42 11/15/24 08:30
I&O
11/14/24 11/15/24 11/16/24
06:59 06:59 06:59
Intake Total 1620 / 1620 600 / 600
Balance 1620 / 1620 600 / 600
Review of Systems
-
History Source: Patient
All other systems: Reviewed and negative
Physical Exam
-
General: No Apparent Distress
[2024-11-15] MEDS: XARELTO 20 MG PO (17:40)
[2024-11-15] MEDS: PROTONIX 40 MG PO (20:36)
[2024-11-15 23:55] VITALS: BP 129/64
[2024-11-16 07:25] VITALS: BP 143/73
--- NOTE | 2024-11-16 08:08 | W.PN.GENERIC ---
Assessment / Plan
-
This is a pleasant 89-year-old female with symptomatic L2 compression fracture after a fall. The symptoms are interfering with her activities of daily living. We discussed treatment options including conservative management with brace and pain
medication, JOSÉ MIGUEL injection and vertebral augmentation. She has no comorbidities that would interfere with planned treatment. I believe she should be a good candidate for vertebral augmentation.
I discussed the technique of vertebral body augmentation including the logistics, risks and benefits, success and failure rates as well as alternatives. Risks include but are not limited to: incomplete treatment, need for surgery, infection, abscess
formation, spinal cord injury and paralysis.� We discussed the probability of outcomes and the length of convalescence post procedure.� The procedure will be performed with anesthesia support. She is interested in pursuing this option.
Plan for vertebral Augmentation on Thursday11/18/24
She will need to hold her Xarelto for 2 doses starting today.
Her INR will need repeated on Thursday morning as it need to be below 1.8
She will need to be NPO after midnight on into Thursday for procedure
Thank you for allowing me to participate in this patient's care.� I spent over one hour in counseling and coordination of care with the patient, reviewing previous medical records, laboratory studies and all relevant imaging, including history
taking, physical exam and documentation as well as discussing the procedure and expected outcome with the patient.
Physician Progress Note
Subjective
Interventional Radiology Consult
Dx: L2 Compression Fracture
History of Present Illness
This is an 89-year-old female past medical history of hypertension, permanent atrial fibrillation on Xarelto, hyperlipidemia, GERD, who was admitted with hematemesis and back pain. She states that she fell Thursday and and has had back
pain since. She denies headache, syncope, dizziness or LOC. She denies CP, palpitations or SOB She reports significant back pain and is in too much pain to get out of bed. She says the pain occassionaly radiates down her legs. She denies
paresthesias or weakness. She has no loss of bowel or bladder control. She denies abdominal pain, nausea or vomiting
Past Medical History:
hypertension, permanent atrial fibrillation on Xarelto, hyperlipidemia, GERD
Past Surgical History:
Gynecological- D&C, Bilateral knee cartilage removed, Left shoulder repair and Cataracts
Social History
Tobacco: Non-smoker
Alcohol: None
Lives alone in [facility]
Family History
Family History: Not pertinent
Allergies
Allergy/AdvReac Type Severity Reaction Status Date / Time
valsartan Allergy Severe anaphylaxis Verified 06/08/24 21:28
is
latex Allergy Rash Verified 06/06/24 20:46
Home Medications
Bifidobacterium infantis 4 mg capsule, atorvastatin 10 mg tablet 10 mg PO DAILY, carboxymethylcellulose sodium 1 % eye liquid gel drops 1 drp BOTH EYES DAILY, diltiazem HCl 120 mg capsule,extended release 24 hr 120 mg PO DAILY, furosemide 20 mg
tablet 20 mg PO Q48H, rivaroxaban 20 mg tablet (Xarelto) 20 mg PO QPM,
Objective
Vital Signs
Temp Pulse Resp BP Pulse Ox
98.1 F 69 18 129/64 95
11/15/24 23:55 11/15/24 23:55 11/15/24 23:55 11/15/24 23:55 11/15/24 23:55
Lab Results
11/14/24 06:37
11/14/24 06:37
This is a WNWD 89 yo female in [facility]. Color is good. Skin warm and dry. Head is NCAT. Neck supple. Heart is irregularly irregular. Lungs are CTA. Abdomen is soft and nontender with bowel sounds. There is tenderness to palpation over the upper
lumbar spine. SLR elicits no pain or paresthesias. Sensation is maintained. Strength is 5/5. Palpable pedal pulses.
[2024-11-16] MEDS: LASIX 20 MG PO (08:37)
[2024-11-16] MEDS: PROTONIX 40 MG PO ×2 (08:37→20:05)
[2024-11-16] MEDS: CARDIZEM CD 120 MG PO (08:37)
[2024-11-16] MEDS: SENOKOT-S 1 TABLET PO ×2 (08:37→20:05)
[2024-11-16] MEDS: LIPITOR 10 MG PO (08:37)
[2024-11-16] MEDS: MIRALAX 17 GRAMS PO (08:38)
[2024-11-16] MEDS: ULTRAM 25 MG PO (08:49)
--- NOTE | 2024-11-16 10:59 | CM ---
PT OT to continue to evaluate pt.
Pt indicated pts need for SNF at [place].
Lumbar fracture . Mediated for pain as needed.
Spoke with son Tim reviewed PT results.
Referral placed Brenda at [facility] aware will need bed.
Pt is now inpatient .Son aware IMM emailed to son yesterday.
PLAN To [facility] when medically ready
[2024-11-16 11:45] VITALS: BP 120/75; BP 136/80; PULSE 71; O2SAT 94
--- NOTE | 2024-11-16 14:02 | W.PN.HOSP.TC ---
Addendum entered and electronically signed by Sebas Brothers DO 11/16/24 15:26:
Vertebral compression fracture appears to be
Multifactorial, low level trauma and age related osteoporosis
Original Note:
Today's Communication/Plan
-
Assessment / Plan
Assessment / Plan
Gen: NAD, Awake and alert
Eyes: EOMI, PERRLA, no scleral icterus.
Neck: supple.
CV: irreg/irreg, +S1/S2, no m/r/g.
Resp: CTAB anteriorly, no rales, wheezes, or rhonchi.
Abd: remains +BS, soft, NT, ND
MSK: Midline thoracolumbar TTP
Skin: No rashes.
Neuro: CN 2-12 intact, non-focal.
Psych: Normal mood and affect.
Lumbar compression fracture:
-Suspect secondary to multiple falls
-X-ray shows compression at the level of L2
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
-Evaluated by neurosurgery who recommended bracing and kyphoplasty
-Interventional radiology planning kyphoplasty Saturday 11/18
Abdominal aortic aneurysm:
-Incidental finding on MRI 11/15 of fusiform infrarenal abdominal aortic aneurysm measuring 2.4 cm
-Ongoing surveillance as outpatient
Polycystic kidney disease:
-MRI 11/15 noted a moderate number of bilateral renal cysts the largest of which measures 3.9 cm
-Should be monitored ongoing in the outpatient setting
Acute blood loss anemia due to hematemesis:
-now resolved
-likely Natalya-Solano tear possibly from vomiting from food poisoning
-exacerbated by Xarelto which was on hold but has now been restarted
-Hemoglobin stable
-Tolerating regular diet
-Transitioned to oral Protonix 11/15
-GI following
-Patient declined EGD
Other problems:
Fall off of bed: No pain or injuries or head injury
Permanent atrial fibrillation: restarted Xarelto, cont Cardizem
Essential hypertension: cont Cardizem
GERD: cont PPI
Hyperlipidemia: cont statin
FULL/SCDs
Anticipated Discharge: > 48 hours
Subjective/Interval History
-
Date of Service: November 16, 2024
Patient was seen and examined at bedside this morning. No complaints other than ongoing back pain. Planning kyphoplasty on Thursday.
Objective Data
-
Vital Signs:
Vital Signs
Temp Pulse Resp BP Pulse Ox
100.0 F 72 18 143/73 95
11/16/24 07:25 11/16/24 08:37 11/16/24 07:25 11/16/24 08:37 11/16/24 10:05
I&O
11/15/24 11/16/24 11/17/24
06:59 06:59 06:59
Intake Total 600 / 600 620 / 620
Balance 600 / 600 620 / 620
Review of Systems
-
History Source: Patient
All other systems: Reviewed and negative
Musculoskeletal: Reports Joint Pain (Back pain)
Physical Exam
-
General: No Apparent Distress
[2024-11-16 15:04] VITALS: BP 146/70
--- NOTE | 2024-11-16 15:07 | PN.CDI ---
CDI
- -
CDI:
Physician Documentation Request
Admit Date: 11/15/24 07:31
Dear Doctor Kathy,
Please review the following and provide your response in the progress notes.
Clinical Indicators:
PN, 11/16
#Lumbar compression fracture:
#...-Suspect secondary to multiple falls
#...-X-ray shows compression at the level of L2
#-MRI 11/15 confirms acute superior endplate fracture of L2
#...with mild loss of vertebral body height,
#...also shows chronic superior endplate fracture of L4
#...with moderate loss of vertebral height, in addition to
#...moderate to severe bilateral facet joint arthrosis at L5/S1
#...and moderate right neuroforaminal narrowing at L3-L4 and L4-L5
#Fall off of bed: No pain or injuries or head injury
Please clarify the following regarding the etiology of the lumbar compression fracture:
Multifactorial, low level trauma and age related osteoporosis
Traumatic fracture only
Other (please specify)
Type Fracture
Age-related With current pathological fx
Drug induced (specify drug) without current pathological fx
Idiopathic
Osteoporosis of disuse
Post traumatic
Use of terms such as suspected, likely, concern for, or probable (associated with a specific diagnosis that is being evaluated, monitored, or treated as if it exists) are acceptable and can be coded in the inpatient setting, when documented at the
time of discharge.
Thank you,
Shawna Carreon RN BSN CCDS
CDI Specialist
please contact via tiger text
Please use your independent medical judgment in providing your response.
[2024-11-16 23:45] VITALS: BP 140/74
[2024-11-16] MEDS: TYLENOL 650 MG PO (23:52)
[2024-11-17 06:00] VITALS: BMI 23.1
[2024-11-17 06:58] LABS: % Basophils 0.6 % (0-2); % Eosinophils 3.7 % (0-6); % Immature Granulocytes 0.4 % (0-0.5); % Lymphocytes 18.8 % (20.5-51.1); % Monocytes 15.4 % (1.7-9.3); % Neutrophils 61.1 % (42.2-75.2); Absolute Eosinophils 0.3 10^3/uL (0-0.7); Absolute Lymphocytes 1.3 10^3/uL (1.2-3.4); Absolute Monocytes 1.1 10^3/uL (0.1-0.6); Absolute Neutrophils 4.2 10^3/uL (1.4-6.5); Hematocrit 33.6 % (37.0-47.0); Hemoglobin 11.5 g/dL (12.0-16.0); Mean Corp Hgb Conc. 34.2 g/dL (33.0-37.0); Mean Corpuscular Hgb 27.6 pg (27.0-31.0); Mean Corpuscular Volume 80.6 fL (81.0-99.0); Mean Platelet Volume 8.7 fL (7.4-10.4); Nucleated Red Blood Cells % 0 %; Platelet Count 230 10^3/uL (130-400); Red Blood Cell Count 4.17 10^6/uL (4.20-5.40); Red Cell Dist. Width 15.7 % (11.5-14.5)
[2024-11-17 07:00] VITALS: BP 126/65
[2024-11-17 07:05] LABS: PT 19.5 Sec (11.4-14.6)
[2024-11-17 07:06] LABS: APTT 41.6 Sec (23.4-35.0)
[2024-11-17 07:27] LABS: Blood Urea Nitrogen 16 mg/dl (7-17); Carbon Dioxide 29 mmol/L (22-30); Chloride 94 mmol/L (98-107); Estimated Creatinine Clearance 52 ml/min; Glucose 114 mg/dl (70-99); Magnesium 1.9 mg/dl (1.6-2.3); Phosphorus 3.8 mg/dl (2.5-4.5); Potassium 4.2 mmol/L (3.5-5.1); Sodium 130 mmol/L (135-145); eGFR > 60.00
[2024-11-17] MEDS: CARDIZEM CD 120 MG PO (09:01)
[2024-11-17] MEDS: MIRALAX 17 GRAMS PO (09:01)
[2024-11-17] MEDS: PROTONIX 40 MG PO ×2 (09:02→20:18)
[2024-11-17] MEDS: LIPITOR 10 MG PO (09:02)
[2024-11-17] MEDS: SENOKOT-S 1 TABLET PO ×2 (09:02→20:19)
--- NOTE | 2024-11-17 14:32 | PTCARENOTE ---
Patient states she has not had a BM for approximately a week. Patient denies discomfort at this time. Miralax and Sennakot given as ordered. Hospitalist made aware. Continue with current bowel regimen/no new orders.
[2024-11-17 15:15] VITALS: BP 127/63
--- NOTE | 2024-11-17 15:24 | W.PN.HOSP.TC ---
Today's Communication/Plan
-
Assessment / Plan
Assessment / Plan
Gen: NAD, Awake and alert
Eyes: EOMI, PERRLA, no scleral icterus.
Neck: supple.
CV: irreg/irreg, +S1/S2, no m/r/g.
Resp: CTAB anteriorly, no rales, wheezes, or rhonchi.
Abd: remains +BS, soft, NT, ND
MSK: Midline thoracolumbar TTP
Skin: No rashes.
Neuro: CN 2-12 intact, non-focal.
Psych: Normal mood and affect.
Lumbar compression fracture:
-Suspect secondary to multiple falls
-X-ray shows compression at the level of L2
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
-Evaluated by neurosurgery who recommended bracing and kyphoplasty
-Interventional radiology planning kyphoplasty tomorrow Saturday 11/18
Abdominal aortic aneurysm:
-Incidental finding on MRI 11/15 of fusiform infrarenal abdominal aortic aneurysm measuring 2.4 cm
-Ongoing surveillance as outpatient
Polycystic kidney disease:
-MRI 11/15 noted a moderate number of bilateral renal cysts the largest of which measures 3.9 cm
-Should be monitored ongoing in the outpatient setting
Acute blood loss anemia due to hematemesis:
-now resolved
-likely Natalya-Solano tear possibly from vomiting from food poisoning
-exacerbated by Xarelto which was on hold but has now been restarted
-Hemoglobin stable
-Tolerating regular diet
-Transitioned to oral Protonix 11/15
-GI following
-Patient declined EGD
Other problems:
Fall off of bed: No pain or injuries or head injury
Permanent atrial fibrillation: restarted Xarelto, cont Cardizem
Essential hypertension: cont Cardizem
GERD: cont PPI
Hyperlipidemia: cont statin
FULL/SCDs
Anticipated Discharge: 24 - 48 hours
Subjective/Interval History
-
Date of Service: November 17, 2024
Patient was seen and examined at bedside this morning. No complaints. Awaiting kyphoplasty tomorrow.
Objective Data
-
Labs:
Laboratory Results
11/17/24
06:28
WBC 7.0
Hgb 11.5 L
Hct 33.6 L
Plt Count 230
PT 19.5 H
INR 1.60
APTT 41.6 H
Sodium 130 L
Potassium 4.2
Chloride 94 L
Carbon Dioxide 29
BUN 16
Creatinine 0.7
Glucose 114 H
Calcium 9.0
Vital Signs:
Vital Signs
Temp Pulse Resp BP Pulse Ox
98.1 F 67 16 126/65 95
11/17/24 07:00 11/17/24 07:00 11/17/24 07:00 11/17/24 07:00 11/17/24 11:30
I&O
11/16/24 11/17/24 11/18/24
06:59 06:59 06:59
Intake Total 620 / 620 480 / 480
Balance 620 / 620 480 / 480
Review of Systems
-
History Source: Patient
All other systems: Reviewed and negative
Physical Exam
-
General: No Apparent Distress
--- NOTE | 2024-11-17 18:26 | PTCARENOTE ---
Patient with temperature of 100.i. made aware of increased temp and Tmax last night of 101/4. No cough and no complaints of painful urination, etc.
[2024-11-17] MEDS: TYLENOL 650 MG PO (20:18)
[2024-11-17 23:45] VITALS: BP 119/37
[2024-11-17 23:55] VITALS: BP 121/64
[2024-11-18] VITALS (15 sets, daily range): BP systolic 56–157; BP diastolic 60–83; BMI 22.8
[2024-11-18 07:29] LABS: % Basophils 0.8 % (0-2); % Eosinophils 5.1 % (0-6); % Immature Granulocytes 0.2 % (0-0.5); % Lymphocytes 22.7 % (20.5-51.1); % Monocytes 14.1 % (1.7-9.3); % Neutrophils 57.1 % (42.2-75.2); Absolute Basophils 0.1 10^3/uL (0-0.2); Absolute Eosinophils 0.3 10^3/uL (0-0.7); Absolute Lymphocytes 1.4 10^3/uL (1.2-3.4); Absolute Monocytes 0.9 10^3/uL (0.1-0.6); Absolute Neutrophils 3.5 10^3/uL (1.4-6.5); Hemoglobin 11.3 g/dL (12.0-16.0); Mean Corp Hgb Conc. 34.2 g/dL (33.0-37.0); Mean Corpuscular Hgb 27.9 pg (27.0-31.0); Mean Corpuscular Volume 81.5 fL (81.0-99.0); Nucleated Red Blood Cells % 0 %; Platelet Count 258 10^3/uL (130-400); Red Blood Cell Count 4.05 10^6/uL (4.20-5.40); Red Cell Dist. Width 15.7 % (11.5-14.5); White Blood Cell Count 6.1 10^3/uL (4.8-10.8)
[2024-11-18 07:59] LABS: Blood Urea Nitrogen 16 mg/dl (7-17); Calcium 8.8 mg/dl (8.4-10.2); Carbon Dioxide 29 mmol/L (22-30); Chloride 95 mmol/L (98-107); Estimated Creatinine Clearance 52 ml/min; Glucose 113 mg/dl (70-99); Phosphorus 3.4 mg/dl (2.5-4.5); Potassium 4.3 mmol/L (3.5-5.1); Sodium 131 mmol/L (135-145); eGFR > 60.00
[2024-11-18] MEDS: PROTONIX 40 MG PO ×2 (08:58→21:40)
[2024-11-18] MEDS: LASIX 20 MG PO (08:58)
[2024-11-18] MEDS: LIPITOR 10 MG PO (08:58)
[2024-11-18] MEDS: CARDIZEM CD 120 MG PO (08:58)
[2024-11-18] MEDS: SENOKOT-S 1 TABLET PO ×2 (08:58→21:40)
[2024-11-18] MEDS: MIRALAX PO (08:59)
[2024-11-18] MEDS: ANCEF 10 IV (12:29)
--- NOTE | 2024-11-18 16:04 | W.PN.HOSP.TC ---
Today's Communication/Plan
-
Assessment / Plan
Assessment / Plan
Gen: NAD, Awake and alert
Eyes: EOMI, PERRLA, no scleral icterus.
Neck: supple.
CV: irreg/irreg, +S1/S2, no m/r/g.
Resp: CTAB anteriorly, no rales, wheezes, or rhonchi.
Abd: remains +BS, soft, NT, ND
MSK: Midline thoracolumbar TTP
Skin: No rashes.
Neuro: CN 2-12 intact, non-focal.
Psych: Normal mood and affect.
Lumbar compression fracture:
-Suspect secondary to multiple falls
-X-ray shows compression at the level of L2
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
-Evaluated by neurosurgery who recommended bracing and kyphoplasty
-Plan for IR kyphoplasty today 11/18
-Will follow-up PT/OT recommendations after reevaluation following kyphoplasty
Abdominal aortic aneurysm:
-Incidental finding on MRI 11/15 of fusiform infrarenal abdominal aortic aneurysm measuring 2.4 cm
-Ongoing surveillance as outpatient
Polycystic kidney disease:
-MRI 11/15 noted a moderate number of bilateral renal cysts the largest of which measures 3.9 cm
-Should be monitored ongoing in the outpatient setting
Acute blood loss anemia due to hematemesis:
-now resolved
-likely Natalya-Solano tear possibly from vomiting from food poisoning
-exacerbated by Xarelto which was on hold but has now been restarted
-Hemoglobin stable
-Tolerating regular diet
-Transitioned to oral Protonix 11/15
-GI following
-Patient declined EGD
Other problems:
Fall off of bed: No pain or injuries or head injury
Permanent atrial fibrillation: restarted Xarelto, cont Cardizem
Essential hypertension: cont Cardizem
GERD: cont PPI
Hyperlipidemia: cont statin
FULL/SCDs
Anticipated Discharge: 24 - 48 hours
Subjective/Interval History
-
Date of Service: November 18, 2024
Patient was seen and examined at bedside this morning. Comfortable. Plan for kyphoplasty today.
Objective Data
-
Labs:
Laboratory Results
11/18/24
06:22
WBC 6.1
Hgb 11.3 L
Hct 33.0 L
Plt Count 258
Sodium 131 L
Potassium 4.3
Chloride 95 L
Carbon Dioxide 29
BUN 16
Creatinine 0.7
Glucose 113 H
Calcium 8.8
Vital Signs:
Vital Signs
Temp Pulse Resp BP Pulse Ox
98.0 F 62 14 141/62 98
11/18/24 15:05 11/18/24 15:45 11/18/24 15:45 11/18/24 15:45 11/18/24 15:45
I&O
11/17/24 11/18/24 11/19/24
06:59 06:59 06:59
Intake Total 480 / 480 480 / 480
Balance 480 / 480 480 / 480
Review of Systems
-
History Source: Patient
All other systems: Reviewed and negative
Physical Exam
-
General: No Apparent Distress
--- NOTE | 2024-11-18 16:40 | W.PN.UPDATE ---
Update Note
Progress Note Update
- L2 vertebroplasty completed earlier this afternoon.
- R unipedicular access. Diminutive pedicle requiring cone beam CT to help with needle placement. Adequate cross fill of injected cement and filling along the superior endplate in the area of patient fracture
- Pt tolerated well. No immediate complications.
- Pt can attempt to sit up/ambulated after 1 hr bedrest.
--- NOTE | 2024-11-18 17:18 | CM ---
PT OT to continue to evaluate pt.
Vertebroplasty today.
Pain management
Referral placed Brenda at [facility] will need bed.
PLAN To [facility] when medically ready
[2024-11-18] MEDS: DESENEX/MITRAZOL/ZEASORB 1 APPLIC TOPICAL (21:40)
[2024-11-18] MEDS: TYLENOL 650 MG PO (21:40)
[2024-11-19 06:00] VITALS: BMI 22.8
[2024-11-19 06:57] LABS: % Basophils 0.7 % (0-2); % Eosinophils 4.5 % (0-6); % Immature Granulocytes 0.3 % (0-0.5); % Lymphocytes 22.1 % (20.5-51.1); % Monocytes 13.9 % (1.7-9.3); % Neutrophils 58.5 % (42.2-75.2); Absolute Basophils 0.1 10^3/uL (0-0.2); Absolute Eosinophils 0.3 10^3/uL (0-0.7); Absolute Lymphocytes 1.5 10^3/uL (1.2-3.4); Absolute Monocytes 0.9 10^3/uL (0.1-0.6); Absolute Neutrophils 3.9 10^3/uL (1.4-6.5); Hemoglobin 11.6 g/dL (12.0-16.0); Mean Corp Hgb Conc. 34.1 g/dL (33.0-37.0); Mean Corpuscular Hgb 27.6 pg (27.0-31.0); Nucleated Red Blood Cells % 0 %; Platelet Count 272 10^3/uL (130-400); Red Cell Dist. Width 15.6 % (11.5-14.5); White Blood Cell Count 6.7 10^3/uL (4.8-10.8)
[2024-11-19 07:30] VITALS: BP 128/66
[2024-11-19 07:33] LABS: Blood Urea Nitrogen 21 mg/dl (7-17); Calcium 9.1 mg/dl (8.4-10.2); Carbon Dioxide 29 mmol/L (22-30); Chloride 95 mmol/L (98-107); Estimated Creatinine Clearance 46 ml/min; Glucose 104 mg/dl (70-99); Phosphorus 4.2 mg/dl (2.5-4.5); Potassium 4.4 mmol/L (3.5-5.1); Sodium 133 mmol/L (135-145); eGFR > 60.00
[2024-11-19] MEDS: SENOKOT-S 1 TABLET PO ×2 (09:11→20:05)
[2024-11-19] MEDS: LIPITOR 10 MG PO (09:11)
[2024-11-19] MEDS: PROTONIX 40 MG PO ×2 (09:11→20:05)
[2024-11-19] MEDS: CARDIZEM CD 120 MG PO (09:11)
[2024-11-19] MEDS: DESENEX/MITRAZOL/ZEASORB 1 APPLIC TOPICAL ×2 (09:12→20:06)
[2024-11-19 10:45] VITALS: BP 131/64
[2024-11-19 11:45] VITALS: BP 131/64
[2024-11-19] MEDS: GLYCERIN SUPPOSITORY ADULT 1 SUPP RECTAL (13:37)
[2024-11-19] MEDS: MIRALAX 17 GRAMS PO (13:37)
--- NOTE | 2024-11-19 14:13 | W.PN.HOSP.TC ---
Today's Communication/Plan
-
Assessment / Plan
Assessment / Plan
Gen: NAD, Awake and alert
Eyes: EOMI, PERRLA, no scleral icterus.
Neck: supple.
CV: irreg/irreg, +S1/S2, no m/r/g.
Resp: CTAB anteriorly, no rales, wheezes, or rhonchi.
Abd: remains +BS, soft, NT, ND
MSK: Mild thoracolumbar TTP
Skin: No rashes.
Neuro: CN 2-12 intact, non-focal.
Psych: Normal mood and affect.
Lumbar compression fracture:
-Suspect secondary to multiple falls
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
-Evaluated by neurosurgery who recommended bracing and kyphoplasty
-Status post successful IR kyphoplasty 11/18
-PT/OT reevaluation following kyphoplasty
Abdominal aortic aneurysm:
-Incidental finding on MRI 11/15 of fusiform infrarenal abdominal aortic aneurysm measuring 2.4 cm
-Ongoing surveillance as outpatient
Polycystic kidney disease:
-MRI 11/15 noted a moderate number of bilateral renal cysts the largest of which measures 3.9 cm
-Should be monitored ongoing in the outpatient setting
Acute blood loss anemia due to hematemesis:
-now resolved
-likely Natalya-Solano tear possibly from vomiting from food poisoning
-exacerbated by Xarelto which was on hold but has now been restarted
-Hemoglobin stable
-Tolerating regular diet
-Transitioned to oral Protonix 11/15
-GI following
-Patient declined EGD
Other problems:
Fall off of bed: No pain or injuries or head injury
Permanent atrial fibrillation: restarted Xarelto, cont Cardizem
Essential hypertension: cont Cardizem
GERD: cont PPI
Hyperlipidemia: cont statin
FULL/SCDs
Anticipated Discharge: 24 - 48 hours
Subjective/Interval History
-
Date of Service: November 19, 2024
Patient was seen and examined at bedside this morning. Tolerated kyphoplasty yesterday well. Awaiting reevaluation by PT/OT.
Objective Data
-
Labs:
Laboratory Results
11/19/24
06:05
WBC 6.7
Hgb 11.6 L
Hct 34.0 L
Plt Count 272
Sodium 133 L
Potassium 4.4
Chloride 95 L
Carbon Dioxide 29
BUN 21 H
Creatinine 0.8
Glucose 104 H
Calcium 9.1
Vital Signs:
Vital Signs
Temp Pulse Resp BP Pulse Ox
98.6 F 73 18 131/64 98
11/19/24 11:45 11/19/24 11:45 11/19/24 11:45 11/19/24 11:45 11/19/24 11:45
I&O
11/18/24 11/19/24 11/20/24
06:59 06:59 06:59
Intake Total 480 / 480 480 / 480 300 / 300
Balance 480 / 480 480 / 480 300 / 300
Review of Systems
-
History Source: Patient
All other systems: Reviewed and negative
Physical Exam
-
General: No Apparent Distress
[2024-11-19 15:20] VITALS: BP 122/65
[2024-11-19] MEDS: TYLENOL 650 MG PO (20:07)
[2024-11-19 23:13] VITALS: BP 128/65
[2024-11-20] MEDS: DULCOLAX 10 MG RECTAL (03:08)
[2024-11-20 06:00] VITALS: BMI 23.0
[2024-11-20 07:35] VITALS: BP 123/81
[2024-11-20] MEDS: MIRALAX 17 GRAMS PO (08:52)
[2024-11-20] MEDS: LASIX 20 MG PO (08:53)
[2024-11-20] MEDS: PROTONIX 40 MG PO ×2 (08:53→19:47)
[2024-11-20] MEDS: CARDIZEM CD 120 MG PO (08:53)
[2024-11-20] MEDS: SENOKOT-S 1 TABLET PO (08:53)
[2024-11-20] MEDS: LIPITOR 10 MG PO (08:53)
[2024-11-20] MEDS: DESENEX/MITRAZOL/ZEASORB 1 APPLIC TOPICAL ×2 (08:55→19:47)
--- NOTE | 2024-11-20 10:05 | W.PN.UPDATE ---
Update Note
Progress Note Update
- Pt seen and examined bedside
- Sitting up in bed, eating breakfast. Non-distressed appearing but says pain is not significantly changed prior to L2 vertebroplasty. She has not used any pain meds since 11/16. Technically procedure went well with some cement traveling along the
superior endplate along the site of fracture. Minimal tenderness at access site in lower back. No gross hematoma/ecchymosis.
- Rec cont conservative therapy; OOB as tolerated. PT/OT.
--- NOTE | 2024-11-20 14:21 | W.PN.HOSP.TC ---
Today's Communication/Plan
-
Assessment / Plan
Assessment / Plan
Gen: NAD, Awake and alert
Eyes: EOMI, PERRLA, no scleral icterus.
Neck: supple.
CV: irreg/irreg, +S1/S2, no m/r/g.
Resp: CTAB anteriorly, no rales, wheezes, or rhonchi.
Abd: remains +BS, soft, NT, ND
MSK: Mild thoracolumbar TTP
Skin: No rashes.
Neuro: CN 2-12 intact, non-focal.
Psych: Normal mood and affect.
Lumbar compression fracture:
-Suspect secondary to multiple falls
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
-Evaluated by neurosurgery who recommended bracing and kyphoplasty
-Status post successful IR kyphoplasty 11/18
-PT/OT reevaluation following kyphoplasty
-Medically stable for discharge to SNF if recommended by PT/OT
Abdominal aortic aneurysm:
-Incidental finding on MRI 11/15 of fusiform infrarenal abdominal aortic aneurysm measuring 2.4 cm
-Ongoing surveillance as outpatient
Polycystic kidney disease:
-MRI 11/15 noted a moderate number of bilateral renal cysts the largest of which measures 3.9 cm
-Should be monitored ongoing in the outpatient setting
Acute blood loss anemia due to hematemesis:
-now resolved
-likely Natalya-Solano tear possibly from vomiting from food poisoning
-exacerbated by Xarelto which was on hold but has now been restarted
-Hemoglobin stable
-Tolerating regular diet
-Transitioned to oral Protonix 11/15
-GI following
-Patient declined EGD
Constipation:
-Acute on chronic
-Was able to move her bowels this morning
-Continue bowel regimen
Other problems:
Fall off of bed: No pain or injuries or head injury
Permanent atrial fibrillation: restarted Xarelto, cont Cardizem
Essential hypertension: cont Cardizem
GERD: cont PPI
Hyperlipidemia: cont statin
FULL/SCDs
Anticipated Discharge: 24 - 48 hours
Subjective/Interval History
-
Date of Service: November 20, 2024
Patient was seen and examined at bedside this morning. Feels well and was able to move her bowels. Awaiting reevaluation by PT following successful kyphoplasty the other day.
Objective Data
-
Vital Signs:
Vital Signs
Temp Pulse Resp BP Pulse Ox
97.6 F 61 18 123/81 96
11/20/24 07:35 11/20/24 07:35 11/20/24 07:35 11/20/24 07:35 11/20/24 07:35
I&O
11/19/24 11/20/24 11/21/24
06:59 06:59 06:59
Intake Total 480 / 480 540 / 540
Balance 480 / 480 540 / 540
Review of Systems
-
History Source: Patient
All other systems: Reviewed and negative
Physical Exam
-
General: No Apparent Distress
[2024-11-20] MEDS: TYLENOL 650 MG PO (14:33)
[2024-11-20 15:15] VITALS: BP 132/73
[2024-11-20 15:38] VITALS: BP 126/77; BP 132/73; PULSE 68
[2024-11-20] MEDS: XARELTO 20 MG PO (17:39)
[2024-11-20] MEDS: SENOKOT-S PO (19:43)
[2024-11-20 23:49] VITALS: BP 120/68
[2024-11-21 06:00] VITALS: BMI 22.9
[2024-11-21 07:20] VITALS: BP 135/68
[2024-11-21] MEDS: CARDIZEM CD 120 MG PO (08:04)
[2024-11-21] MEDS: PROTONIX 40 MG PO ×2 (08:04→20:33)
[2024-11-21] MEDS: SENOKOT-S 1 TABLET PO ×2 (08:04→20:34)
[2024-11-21] MEDS: LIPITOR 10 MG PO (08:04)
[2024-11-21] MEDS: MIRALAX 17 GRAMS PO (08:04)
[2024-11-21] MEDS: FLUSH (NSS) 1 FLUSH IV (08:05)
[2024-11-21] MEDS: DESENEX/MITRAZOL/ZEASORB 1 APPLIC TOPICAL ×2 (08:06→20:32)
[2024-11-21] MEDS: ULTRAM 25 MG PO (08:16)
[2024-11-21 15:10] VITALS: BP 124/66
--- NOTE | 2024-11-21 15:43 | W.PN.HOSP.TC ---
Today's Communication/Plan
-
SNF planning
Assessment / Plan
Assessment / Plan
#Lumbar compression fracture:
-Suspect secondary to multiple falls
-MRI 11/15 shows acute superior endplate fracture of L2 with mild loss of vertebral body height,
-Evaluated by neurosurgery who recommended bracing and kyphoplasty
-Status post successful IR kyphoplasty 11/18/24
-PT/OT reevaluation following kyphoplasty
-Medically stable for discharge to SNF if recommended by PT/OT
#Acute blood loss anemia due to hematemesis:
-RESOLVED; likely Natalya-Solano tear possibly from vomiting from food poisoning
-exacerbated by Xarelto which was on hold but has now been restarted
-Hemoglobin stable, Tolerating regular diet
-Transitioned to oral Protonix 11/15
-GI following, Patient declined EGD
-OP GI follow up at [facility]
#Abdominal aortic aneurysm:
-Incidental finding on MRI 11/15 of fusiform infrarenal abdominal aortic aneurysm measuring 2.4 cm
-Ongoing surveillance as outpatient
#cystic kidney disease:
-MRI 11/15 noted a moderate number of bilateral renal cysts the largest of which measures 3.9 cm
-Unlikely AD v AR PCKD; more likely related to age-environmental related origin
-Should be monitored ongoing in the outpatient setting
#Constipation:
-Acute on chronic
-Was able to move her bowels this morning
-Continue bowel regimen
Other problems:
#Fall off of bed: No pain or injuries or head injury
#Permanent atrial fibrillation: restarted Xarelto, cont Cardizem
#Essential hypertension: cont Cardizem
#GERD: cont PPI
#Hyperlipidemia: cont statin
DVT prophylaxis: Home Xarelto
Diet: Regular
CODE STATUS: Full code
Anticipated Discharge: Within 24 hours
Subjective/Interval History
-
Date of Service: November 21, 2024
Seen and examined at the bedside. No acute events reported overnight. AFVSS as of this morning
She states that she was having minimal pain at the time of my evaluation. Denies any recurrence of nausea or vomiting, hematemesis.
She denies any new complaints as of this morning
Objective Data
-
Vital Signs:
Vital Signs
Temp Pulse Resp BP Pulse Ox
98.2 F 66 14 135/68 96
11/21/24 07:20 11/21/24 07:20 11/21/24 07:20 11/21/24 07:20 11/21/24 07:20
I&O
11/20/24 11/21/24 11/22/24
06:59 06:59 06:59
Intake Total 540 / 540 720 / 720
Balance 540 / 540 720 / 720
Review of Systems
-
History Source: Patient
All other systems: Reviewed and negative
Physical Exam
-
General: Well Developed and No Apparent Distress
HEENT: Normocephalic, Atraumatic, Moist Mucous Membranes and Anicteric
Respiratory: Clear to Auscultation and Non Labored Respirations
Cardiac: Regular Rhythm and S1/S2; Negative Murmur, Rub or Gallop
GI: Soft, Nontender, Nondistended and Normal Bowel Sounds
Musculoskeletal: No Clubbing, No Cyanosis, No Edema and Other (Mild tenderness to lumbar vertebral palpation)
Skin: Warm and Dry; Negative Rash
Neuro: AO x 3 and Nonfocal/Grossly Intact
Psych: Calm
[2024-11-21] MEDS: XARELTO 20 MG PO (17:22)
--- NOTE | 2024-11-21 17:30 | CM ---
PT OT to continue to recommend SNF .
Spoke with Brenda at [facility] bed available when medically ready.
Pain management
Pt has medicare insurance.
PLAN To [facility] when medically ready
[2024-11-21 23:32] VITALS: BP 132/71
[2024-11-22 06:00] VITALS: BMI 22.9
[2024-11-22] MEDS: PROTONIX 40 MG PO (08:06)
[2024-11-22] MEDS: CARDIZEM CD 120 MG PO (08:06)
[2024-11-22] MEDS: SENOKOT-S 1 TABLET PO (08:06)
[2024-11-22] MEDS: LIPITOR 10 MG PO (08:07)
[2024-11-22] MEDS: LASIX 20 MG PO (08:07)
[2024-11-22] MEDS: MIRALAX 17 GRAMS PO (08:08)
[2024-11-22] MEDS: ULTRAM 25 MG PO (08:12)
[2024-11-22 08:33] VITALS: BP 146/72
[2024-11-22] MEDS: DESENEX/MITRAZOL/ZEASORB 1 APPLIC TOPICAL (09:32)
--- NOTE | 2024-11-22 12:09 | W.PN.HOSP.TC ---
Today's Communication/Plan
-
Discharge to SNF
Assessment / Plan
Assessment / Plan
#Lumbar compression fracture:
-Suspect secondary to multiple falls
-MRI 11/15 shows acute superior endplate fracture of L2 with mild loss of vertebral body height,
-Evaluated by neurosurgery who recommended bracing and kyphoplasty
-Status post successful IR kyphoplasty 11/18/24
-PT/OT reevaluation following kyphoplasty
-Medically stable for discharge to SNF if recommended by PT/OT
#Acute blood loss anemia due to hematemesis:
-RESOLVED; likely Natalya-Solano tear possibly from vomiting from food poisoning
-exacerbated by Xarelto which was on hold but has now been restarted
-Hemoglobin stable, Tolerating regular diet
-Transitioned to oral Protonix 11/15
-GI following, Patient declined EGD
-OP GI follow up at [place]
#Abdominal aortic aneurysm:
-Incidental finding on MRI 11/15 of fusiform infrarenal abdominal aortic aneurysm measuring 2.4 cm
-Ongoing surveillance as outpatient
#cystic kidney disease:
-MRI 11/15 noted a moderate number of bilateral renal cysts the largest of which measures 3.9 cm
-Unlikely AD v AR PCKD; more likely related to age-environmental related origin
-Should be monitored ongoing in the outpatient setting
#Constipation:
-Acute on chronic
-Was able to move her bowels this morning
-Continue bowel regimen
Other problems:
#Fall off of bed: No pain or injuries or head injury
#Permanent atrial fibrillation: restarted Xarelto, cont Cardizem
#Essential hypertension: cont Cardizem
#GERD: cont PPI
#Hyperlipidemia: cont statin
DVT prophylaxis: Home Xarelto
Diet: Regular
CODE STATUS: Full code
Anticipated Discharge: Today
Subjective/Interval History
-
Date of Service: November 22, 2024
Seen and examined at the bedside. No acute interval overnight. AFVSS as of this morning.
She denies any significant pain at rest. Had some nervousness with ambulation yesterday with pain manageable
Denies new complaints today. States she is ready to begin more intensive physical therapy
Objective Data
-
Vital Signs:
Vital Signs
Temp Pulse Resp BP Pulse Ox
97.8 F 66 18 146/72 98
11/22/24 08:33 11/22/24 08:33 11/22/24 08:33 11/22/24 08:33 11/22/24 08:33
I&O
11/21/24 11/22/24 11/23/24
06:59 06:59 06:59
Intake Total 720 / 720 120 / 120
Balance 720 / 720 120 / 120
Review of Systems
-
History Source: Patient
All other systems: Reviewed and negative
Physical Exam
-
General: Well Developed, No Apparent Distress and Comfortable
HEENT: Normocephalic, Atraumatic and Moist Mucous Membranes
Respiratory: Clear to Auscultation and Non Labored Respirations
Cardiac: Regular Rhythm and S1/S2; Negative Murmur, Rub or Gallop
GI: Soft, Nontender, Nondistended and Normal Bowel Sounds
Musculoskeletal: No Clubbing, No Cyanosis, No Edema and Other (Mild tenderness to lumbar spine, no step-off or gross deformity)
Skin: Warm and Dry; Negative Rash
Neuro: AO x 3 and Nonfocal/Grossly Intact
Psych: Calm
--- NOTE | 2024-11-22 12:28 | CM ---
MD entered order for discharge.
PT OT to continue to recommend SNF .
Spoke with Brenda at [facility] bed available today.
Spoke with pt and son Tim about IMM and both agree with dc to [facility] today.
Pt and son requested ambulance Medical nec form completed.
[facility]
report [phone]
fax [phone]
PLAN To [facility]
[2024-11-22 14:10] VITALS: BP 114/59
--- NOTE | 2024-11-22 15:05 | W.DCSUMMARY ---
Discharge Summary
Discharge Data
Date of Admission: 11/15/24
Date of Discharge: 11/22/24
-
Pending Results: No
Hospital Course
89-year-old female with paroxysmal AF on Xarelto, GERD, HLD, constipation that presented to the hospital with hematemesis after recent food poisoning and frequent nausea and vomiting, as well as low back pain. Lumbar x-ray with subsequent MRI showed
acute superior endplate fracture of L2 with mild loss of vertebral body height. Was evaluated by interventional radiology that performed kyphoplasty/vertebroplasty on 11/18/2024. Was treated with as needed analgesic regimen following. Worked with
physical therapist who recommended SNF placement at discharge which was facilitated by case management.
Was started on IV PPI due to hematemesis with coffee-ground like quality. Quickly resolved with stable hemoglobin. Xarelto held initially though resumed prior to being discharged from the hospital. CBC remained stable. Suspect that she had
Natalya-Solano tear due to frequent nausea and vomiting related to food poisoning prior to arrival. Patient declined having EGD done in the hospital. Should continue oral PPI twice daily for 8 weeks after discharge with de-escalation to once daily
thereafter. 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
Discharge Plan
-
Patient Disposition: Shelter/SNF
Discharge Diagnosis/Procedures: L2 vertebral fracture s/p kyphoplasty
Hematemesis from Natalya-Solano tear (resolved)
Condition: Fair
Diet: No restrictions
Activity: As tolerated
Driving Restrictions: No driving
Bathing Restrictions: None
Blood Work: CBC in 1 week to recheck hemoglobin
Other Services: PT and OT
Activity Restrictions/Additional Instructions:
After discharge from the hospital should have follow-up with family physician. Should be seen in the office within 1 to 2 weeks of discharge from rehab.
Instructions: Vertebral compression fracture, Vertebroplasty and kyphoplasty
Referrals:
Wale Chang MD [Family Provider] -
Additional Discharge Medication Instructions: Continue with pantoprazole 40 mg twice daily for 8 weeks after discharge. De-escalate to pantoprazole once daily after 8 weeks
Pain regimen: Tylenol for mild pain, tramadol for moderate to severe pain
Prescriptions:
New
pantoprazole 40 mg Tablet,Delayed Release (Dr/Ec)
40 mg PO BID 56 Days Qty: 112 0RF
tramadol 50 mg Tablet
25 mg PO Q6HPRN PRN (Reason: moderate pain) 5 Days Qty: 20 0RF
Continued
atorvastatin 10 mg Tablet
10 mg PO DAILY
diltiazem HCl 120 mg capsule,extended release 24hr
120 mg PO DAILY
furosemide 20 mg Tablet
20 mg PO Q48H@0800
Xarelto 20 mg Tablet
20 mg PO QPM
acetaminophen [Tylenol] 325 mg Tablet
650 mg PO Q6HPRN PRN (Reason: mild pain)
Discharge Orders:
Discharge Patient (As Directed); Ordered 11/22/24
Ordered By: Joe Blancas
Discharge Date and Time
Print Language: NIGERIEN
== END 2024-11-22 15:27 | DRG 982 ==
LOC: 4 EAST ACU 07:31
PROVIDERS: Internal Medicine; Radiology Diagnostic Radiology; ADMITTING PHYSICIAN Hospitalist; ATTENDING PHYSICIAN Internal Medicine; CONSULT PHYSICIAN Student in an Organized Health Care Education/Training Program; EMERGENCY PHYSICIAN Emergency Medicine; FAMILY PHYSICIAN Family Medicine
PROC: 0QU03JZ Supplement Lumbar Vertebra with Synthetic Substitute, Percutaneous Approach (ICD-10-PCS; 2024-11-18)
DX: K22.6 Gastro-esophageal laceration-hemorrhage syndrome (principal); D62 Acute posthemorrhagic anemia; S32.029A Unspecified fracture of second lumbar vertebra, initial encounter for closed fracture; I48.21 Permanent atrial fibrillation; D68.32 Hemorrhagic disorder due to extrinsic circulating anticoagulants; Q61.9 Cystic kidney disease, unspecified; M80.88XA Other osteoporosis with current pathological fracture, vertebra(e), initial encounter for fracture; K92.0 Hematemesis; I10 Essential (primary) hypertension; Z79.01 Long term (current) use of anticoagulants; K21.9 Gastro-esophageal reflux disease without esophagitis; E78.00 Pure hypercholesterolemia, unspecified; W06.XXXA Fall from bed, initial encounter; Z91.040 Latex allergy status; Z11.52 Encounter for screening for COVID-19; Z79.899 Other long term (current) drug therapy; K57.30 Diverticulosis of large intestine without perforation or abscess without bleeding; K59.00 Constipation, unspecified; I71.43 Infrarenal abdominal aortic aneurysm, without rupture; Z85.828 Personal history of other malignant neoplasm of skin; H91.90 Unspecified hearing loss, unspecified ear
CPT/HCPCS: 22514; 51701; 72110; 72148; 72190; 76380; 80048; 80053; 81003; 81015; 83735; 84100; 85025; 85027; 85610; 85730; 86850; 86900; 86901; 87077; 87086; 87186; 87502; 87811; 93005; 96361; 96374; 97162; 97167; 97530; 99285

== ENCOUNTER → 2024-11-25 12:52 | Outpatient (REF) | payer OTHER, MEDICARE, SELFPAY ==
[2024-11-25 14:43] LABS: % Eosinophils 6.7 % (0-6); % Immature Granulocytes 0.2 % (0-0.5); % Lymphocytes 30.5 % (20.5-51.1); % Monocytes 11.5 % (1.7-9.3); % Neutrophils 50.1 % (42.2-75.2); Absolute Basophils 0.1 10^3/uL (0-0.2); Absolute Eosinophils 0.4 10^3/uL (0-0.7); Absolute Lymphocytes 1.6 10^3/uL (1.2-3.4); Absolute Monocytes 0.6 10^3/uL (0.1-0.6); Absolute Neutrophils 2.6 10^3/uL (1.4-6.5); Hematocrit 31.5 % (37.0-47.0); Hemoglobin 10.6 g/dL (12.0-16.0); Mean Corp Hgb Conc. 33.7 g/dL (33.0-37.0); Mean Corpuscular Hgb 27.3 pg (27.0-31.0); Mean Corpuscular Volume 81.2 fL (81.0-99.0); Mean Platelet Volume 8.7 fL (7.4-10.4); Nucleated Red Blood Cells % 0 %; Platelet Count 327 10^3/uL (130-400); Red Blood Cell Count 3.88 10^6/uL (4.20-5.40); Red Cell Dist. Width 15.7 % (11.5-14.5); White Blood Cell Count 5.2 10^3/uL (4.8-10.8)
[2024-11-25 15:34] LABS: Blood Urea Nitrogen 15 mg/dl (7-17); Calcium 8.8 mg/dl (8.4-10.2); Carbon Dioxide 29 mmol/L (22-30); Chloride 90 mmol/L (98-107); Glucose 97 mg/dl (70-99); Potassium 4.4 mmol/L (3.5-5.1); Sodium 128 mmol/L (135-145); eGFR > 60.00
== END ==
LOC: OLABP 12:52
PROVIDERS: ATTENDING PHYSICIAN Family Medicine
DX: Z79.01 Long term (current) use of anticoagulants (principal); I48.21 Permanent atrial fibrillation; I10 Essential (primary) hypertension; D62 Acute posthemorrhagic anemia; K92.0 Hematemesis; D68.32 Hemorrhagic disorder due to extrinsic circulating anticoagulants; Q61.3 Polycystic kidney, unspecified; I71.40 Abdominal aortic aneurysm, without rupture, unspecified
CPT/HCPCS: 36415; 80048; 85025

== ENCOUNTER → 2024-11-30 10:20 | Outpatient (REF) | payer OTHER, MEDICARE, SELFPAY ==
[2024-11-30 10:59] LABS: Hematocrit 30.3 % (37.0-47.0); Mean Corpuscular Hgb 26.9 pg (27.0-31.0); Mean Corpuscular Volume 81.5 fL (81.0-99.0); Mean Platelet Volume 8.9 fL (7.4-10.4); Platelet Count 279 10^3/uL (130-400); Red Blood Cell Count 3.72 10^6/uL (4.20-5.40); Red Cell Dist. Width 16.2 % (11.5-14.5); White Blood Cell Count 5.4 10^3/uL (4.8-10.8)
[2024-11-30 11:01] LABS: Blood Urea Nitrogen 17 mg/dl (7-17); Calcium 8.8 mg/dl (8.4-10.2); Carbon Dioxide 27 mmol/L (22-30); Chloride 96 mmol/L (98-107); Glucose 93 mg/dl (70-99); Potassium 4.3 mmol/L (3.5-5.1); Sodium 131 mmol/L (135-145); eGFR > 60.00
== END ==
LOC: OLABP 10:20
PROVIDERS: ATTENDING PHYSICIAN Family Medicine
DX: I71.40 Abdominal aortic aneurysm, without rupture, unspecified (principal); Q61.3 Polycystic kidney, unspecified; Z79.01 Long term (current) use of anticoagulants; I48.21 Permanent atrial fibrillation; I10 Essential (primary) hypertension; D62 Acute posthemorrhagic anemia; K92.0 Hematemesis
CPT/HCPCS: 36415; 80048; 85027

== ENCOUNTER → 2024-12-07 11:23 | Outpatient (REF) | payer OTHER, MEDICARE, SELFPAY ==
[2024-12-07 11:42] LABS: Hematocrit 30.9 % (37.0-47.0); Hemoglobin 10.2 g/dL (12.0-16.0); Mean Corpuscular Hgb 27.5 pg (27.0-31.0); Mean Corpuscular Volume 83.3 fL (81.0-99.0); Platelet Count 225 10^3/uL (130-400); Red Blood Cell Count 3.71 10^6/uL (4.20-5.40); White Blood Cell Count 6.9 10^3/uL (4.8-10.8)
[2024-12-07 12:51] LABS: Blood Urea Nitrogen 16 mg/dl (7-17); Calcium 8.7 mg/dl (8.4-10.2); Carbon Dioxide 29 mmol/L (22-30); Chloride 99 mmol/L (98-107); Glucose 93 mg/dl (70-99); Potassium 4.1 mmol/L (3.5-5.1); Sodium 133 mmol/L (135-145); eGFR > 60.00
== END ==
LOC: OLABP 11:23
PROVIDERS: ATTENDING PHYSICIAN Family Medicine
DX: Z79.01 Long term (current) use of anticoagulants (principal); I48.21 Permanent atrial fibrillation; I10 Essential (primary) hypertension; D62 Acute posthemorrhagic anemia; K92.0 Hematemesis; D68.32 Hemorrhagic disorder due to extrinsic circulating anticoagulants; Q61.3 Polycystic kidney, unspecified; I71.40 Abdominal aortic aneurysm, without rupture, unspecified
CPT/HCPCS: 36415; 80048; 85027

== ENCOUNTER → 2024-12-13 09:51 | Outpatient (REF) | payer OTHER, MEDICARE, SELFPAY ==
[2024-12-13 10:58] LABS: % Eosinophils 7.3 % (0-6); % Immature Granulocytes 0.2 % (0-0.5); % Lymphocytes 30.2 % (20.5-51.1); % Monocytes 8.6 % (1.7-9.3); % Neutrophils 52.7 % (42.2-75.2); Absolute Basophils 0.1 10^3/uL (0-0.2); Absolute Eosinophils 0.4 10^3/uL (0-0.7); Absolute Lymphocytes 1.6 10^3/uL (1.2-3.4); Absolute Monocytes 0.5 10^3/uL (0.1-0.6); Absolute Neutrophils 2.8 10^3/uL (1.4-6.5); Hematocrit 29.5 % (37.0-47.0); Hemoglobin 9.7 g/dL (12.0-16.0); Mean Corp Hgb Conc. 32.9 g/dL (33.0-37.0); Mean Corpuscular Hgb 27.9 pg (27.0-31.0); Mean Corpuscular Volume 84.8 fL (81.0-99.0); Mean Platelet Volume 9.2 fL (7.4-10.4); Nucleated Red Blood Cells % 0 %; Platelet Count 218 10^3/uL (130-400); Red Blood Cell Count 3.48 10^6/uL (4.20-5.40); Red Cell Dist. Width 17.1 % (11.5-14.5); White Blood Cell Count 5.2 10^3/uL (4.8-10.8)
[2024-12-13 11:21] LABS: Blood Urea Nitrogen 15 mg/dl (7-17); Carbon Dioxide 31 mmol/L (22-30); Chloride 100 mmol/L (98-107); Glucose 97 mg/dl (70-99); Potassium 3.8 mmol/L (3.5-5.1); Sodium 134 mmol/L (135-145); eGFR > 60.00
== END ==
LOC: OLABP 09:51
PROVIDERS: ATTENDING PHYSICIAN Family Medicine
DX: Z79.01 Long term (current) use of anticoagulants (principal); I48.21 Permanent atrial fibrillation; I10 Essential (primary) hypertension; D62 Acute posthemorrhagic anemia; K92.0 Hematemesis; D68.32 Hemorrhagic disorder due to extrinsic circulating anticoagulants; Q61.3 Polycystic kidney, unspecified; I71.40 Abdominal aortic aneurysm, without rupture, unspecified
CPT/HCPCS: 36415; 80048; 85025

== ENCOUNTER → 2024-12-20 08:26 | Outpatient (REF) | payer OTHER, MEDICARE, SELFPAY ==
[2024-12-20 10:26] LABS: % Eosinophils 8.2 % (0-6); % Immature Granulocytes 0.2 % (0-0.5); % Lymphocytes 35.2 % (20.5-51.1); % Monocytes 12.2 % (1.7-9.3); % Neutrophils 43.2 % (42.2-75.2); Absolute Basophils 0.1 10^3/uL (0-0.2); Absolute Eosinophils 0.4 10^3/uL (0-0.7); Absolute Lymphocytes 1.7 10^3/uL (1.2-3.4); Absolute Monocytes 0.6 10^3/uL (0.1-0.6); Absolute Neutrophils 2.1 10^3/uL (1.4-6.5); Hematocrit 28.4 % (37.0-47.0); Hemoglobin 9.3 g/dL (12.0-16.0); Mean Corp Hgb Conc. 32.7 g/dL (33.0-37.0); Mean Corpuscular Hgb 27.9 pg (27.0-31.0); Mean Corpuscular Volume 85.3 fL (81.0-99.0); Mean Platelet Volume 9.2 fL (7.4-10.4); Nucleated Red Blood Cells % 0 %; Platelet Count 222 10^3/uL (130-400); Red Blood Cell Count 3.33 10^6/uL (4.20-5.40); Red Cell Dist. Width 17.9 % (11.5-14.5); White Blood Cell Count 4.8 10^3/uL (4.8-10.8)
[2024-12-20 10:49] LABS: Blood Urea Nitrogen 17 mg/dl (7-17); Carbon Dioxide 31 mmol/L (22-30); Chloride 100 mmol/L (98-107); Glucose 93 mg/dl (70-99); Potassium 3.8 mmol/L (3.5-5.1); Sodium 137 mmol/L (135-145); eGFR > 60.00
== END ==
LOC: OLABP 08:26
PROVIDERS: ATTENDING PHYSICIAN Family Medicine
DX: Z79.01 Long term (current) use of anticoagulants (principal); I48.21 Permanent atrial fibrillation; I10 Essential (primary) hypertension; D62 Acute posthemorrhagic anemia; K92.0 Hematemesis; D68.32 Hemorrhagic disorder due to extrinsic circulating anticoagulants; Q61.3 Polycystic kidney, unspecified; I71.40 Abdominal aortic aneurysm, without rupture, unspecified
CPT/HCPCS: 36415; 80048; 85025

== ENCOUNTER 2024-12-29 15:27 | Inpatient (IN) | payer MEDICARE, OTHER, SELFPAY ==
[2024-12-29] VITALS (12 sets, daily range): BP systolic 98–126; BP diastolic 51–71; PULSE 67–100; BMI 24.2
[2024-12-29 11:55] LABS: % Basophils 0.4 % (0-2); % Eosinophils 5.1 % (0-6); % Immature Granulocytes 0.4 % (0-0.5); % Lymphocytes 16.3 % (20.5-51.1); % Monocytes 6.8 % (1.7-9.3); Absolute Eosinophils 0.4 10^3/uL (0-0.7); Absolute Lymphocytes 1.3 10^3/uL (1.2-3.4); Absolute Monocytes 0.6 10^3/uL (0.1-0.6); Absolute Neutrophils 5.7 10^3/uL (1.4-6.5); Hematocrit 30.7 % (37.0-47.0); Hemoglobin 9.9 g/dL (12.0-16.0); Mean Corp Hgb Conc. 32.2 g/dL (33.0-37.0); Mean Platelet Volume 8.6 fL (7.4-10.4); Nucleated Red Blood Cells % 0 %; Platelet Count 209 10^3/uL (130-400); Red Blood Cell Count 3.53 10^6/uL (4.20-5.40); Red Cell Dist. Width 18.5 % (11.5-14.5); White Blood Cell Count 8.1 10^3/uL (4.8-10.8)
[2024-12-29 12:12] LABS: COVID-19 Antigen Negative (Negative)
[2024-12-29 12:17] LABS: ALT (SGPT) 12 U/L (0-35); AST (SGOT) 26 U/L (14-36); Albumin 3.3 g/dl (3.5-5.0); Alkaline Phosphatase 87 U/L (38-126); Blood Urea Nitrogen 18 mg/dl (7-17); Calcium 8.9 mg/dl (8.4-10.2); Carbon Dioxide 26 mmol/L (22-30); Chloride 101 mmol/L (98-107); Estimated Creatinine Clearance 44 ml/min; Glucose 135 mg/dl (70-99); Potassium 3.9 mmol/L (3.5-5.1); Sodium 133 mmol/L (135-145); Total Bilirubin 0.8 mg/dl (0.2-1.3); Total Protein 6.2 g/dl (6.3-8.2); eGFR > 60.00
--- NOTE | 2024-12-29 12:46 | ED.GENMED ---
History of Present Illness
General
Chief Complaint: Fainting/Passed Out
Source: patient and family (Son)
Exam Limitations: none
Time Seen by Provider: 12/29/24 11:49
History of Present Illness
History of Present Illness:
Patient currently in rehabilitation. She was walking to go to the [facility] when she suddenly went unresponsive while standing. Her color was not pale. She did not fall to the ground or totally pass out. Symptoms lasted a minute or 2. Back to
baseline at this time.
Past History
Past History
ED Past Medical History: Arrthythmia (Atrial fib), Cancer (Skin CA), GERD, HTN and Other (DIVERTICULOSIS, tonic A. fib on Xarelto, syncope, chronic hearing loss, Hemorrhoids, )
ED Past Surgical History: Gynecological (D&C, ), Orthopedic (Bilateral knee cartilage removed, Left shoulder repair) and Other (Cataracts)
Social History
Tobacco: Non-smoker
Alcohol: None
Drug: None
Personal:
Living: assisted living ([place])
Family History
Family History: Negative Diabetes, Hypertension or CAD
Review of Systems
Review of Systems
All Other Systems: Not applicable
Respiratory: Reports no symptoms
Cardiac: Denies chest pain or syncope
Phy Exam
Physical Exam
Physical Exam:
GENERAL: Alert and oriented in no apparent distress. Elderly and frail
EYE: Orbits normal.
NECK: Supple, no significant adenopathy.
ENT: Pharynx without erythema
CARDIAC: Mildly irregular no murmur
LUNGS: Clear breath sounds,normal
ABDOMEN: Soft, without focal tenderness or distention
NEUROLOGICAL: Alert and oriented , grossly non-focal
SKIN: Warm and dry, no rash or lesion, no discoloration, skin intact.
MUSCULOSKELETAL: No edema,no deformity.Good color
PSYCH: Normal and appropriate interaction.
Course
Orders/Labs/Results
Orders:
Orders
12/29/24 11:38
Electrocardiogram (*1) Urgent
Reason for Study: Chest Pain
Cardiac Monitoring- Treatment ONCE
EKG- Treatment ONCE
12/29/24 11:47
COVID-19 Antigen Urgent
Source: Nasal Swab
Complete Blood Count/With Diff Urgent
Comprehensive Metabolic Panel Urgent
Influenza A+B Rapid Molecular Urgent
MAGY Source: Nasal Swab
Specimen Description:
12/29/24 12:01
CT Head W/o Iv Contrast Urgent
Comment:
Reason For Exam: Transient mental status change
IV Insert/Care/Rem.- Treatment PRN
0.9% Sodium Chloride 500 ml [Nss] 500 ml IV BOLUS
Pulse Ox/cont/shift [RESP] Stat
Quantity: 1
12/29/24 12:55
Troponin I Urgent
Urinalysis Reflex To Culture Urgent
Date Specimen was Collected: 12/29/24
Time Specimen was Collected: 12:24
Urine Microscopic Reflex Cult Urgent
Urine Culture Urgent
MAGY Source: U
Specimen Description:
Date Specimen was Collected: 12/29/24
Time Specimen was Collected: 12:24
12/29/24 13:39
CefTRIAXone [Rocephin] 1,000 mg IV NOW STA
12/29/24 13:51
Echo 2D MMode Color/Doppler Urgent
Reason for Study: elevated Troponin, near syncope
Cardiology Consult: Olya Callahan
12/29/24 13:56
EKG [Electrocardiogram (*1)] Urgent
Reason for Study: Other
Other Reason for Exam: weak
EKG- Treatment ONCE
12/29/24 13:57
Aspirin Chewable [Low Strength Aspirin] 162 mg PO NOW STA
12/29/24 14:09
Admit/Transfer Patient As Directed
Co-Sign Provider:
Level of Care: Inpatient admission
Assign to:: Telemetry
Physician / Group: Didier
Diagnosis: Near-Syncope, Elevated Trop
Reason for Telemetry: Syncope
Date to Stop Telemetry: 12/31/24
Time to Stop Telemetry: 11:00
Reason for Hospitalization: Elevated Troponin
Expected length of stay greater than two midnights?: Yes
ELOS- Estimated Length of Stay in days: 3
I certify the patient meets the requirements for IP care: Yes
PRN Pain Medication Management As Directed
May give lesser potent ordered pain med per pt: Yes
preference::
Protocol:: Medication orders for pain may be administered in a
manner that supports deferring to patient preference
when the pt is:
- Requesting an ordered lesser potent pain medication.
Least to most potent pain medications are defined
as: acetaminophen < NSAID < tramadol < opioids
(morphine, oxycodone, hydromorphone).
- Requesting a lesser dose of the same medication IF
ORDERED.
- Requesting a less intrusive route of administration
if both routes are prescribed by the provider (PO <
IV).
12/29/24 14:10
Code Status As Directed
Resuscitation Status: Do not resuscitate
Reached after discussion with pt or family/Healthcare POA: Yes
DNR Bracelet Application ONCE
12/29/24 14:47
Add On- LAB Urgent
Tests Added?: iron, ferritin, tibc, folate, vitb12
12/29/24 17:00
Troponin I Q6H
12/29/24 23:00
Troponin I Q6H
12/30/24 05:00
Troponin I Q6H
12/31/24 11:00
DC Protocol for Telemetry ONCE
Abnormal Lab Results
12/29/24 12/29/24
11:47 12:55
RBC 3.53 L 10^6/uL
(4.20-5.40)
Hgb 9.9 L g/dL
(12.0-16.0)
Hct 30.7 L %
(37.0-47.0)
MCHC 32.2 L g/dL
(33.0-37.0)
RDW 18.5 H %
(11.5-14.5)
Lymphocytes % 16.3 L %
(20.5-51.1)
Sodium 133 L mmol/L
(135-145)
BUN 18 H mg/dl
(7-17)
Glucose 135 H mg/dl
(70-99)
Troponin I 2.640 H* ng/ml
Total Protein 6.2 L g/dl
(6.3-8.2)
Albumin 3.3 L g/dl
(3.5-5.0)
Ur Occult Blood Reflex 1+ A
(Negative)
Urine Nitrite (Reflex) Positive A
(Negative)
Leukocyte Esterase Rfl 1+ A
(Negative)
Urine Bacteria (Reflex) Many A
(Negative)
Urine Albumin (Reflex) 1+ A
(Neg - Trace)
12/29/24 11:47
12/29/24 11:47
Vital Signs
Initial and Last Documented VS:
Initial Vital Signs
Pulse Resp Pulse Ox
63 15 96
12/29/24 11:30 12/29/24 11:30 12/29/24 11:30
Last Documented Vital Signs
Temp Pulse Resp BP Pulse Ox
97.7 F 59 14 100/51 96
12/29/24 11:32 12/29/24 15:15 12/29/24 15:15 12/29/24 15:00 12/29/24 15:15
*EKG
Interpreted by ED Provider?: Yes
Interpretation: abnormal
Comparison EKG: no changes
Heart Rate: 48
Rate: bradycardiac
Rhythm: a-fib
[place]: left axis deviation
Interval: normal interval
QRS Pattern: low voltage
Ischemia: non-specific ST changes
*Manager Of Purchasing Interpretation
Rate: normal
Interpretation: abnormal
Heart Rate: 62
Rhythm: a-fib
*Critical Care Note
Total Time (30-74mins, 75-104mins- exclusive of procedures): Not Applicable
Data Reviewed
Review of Other/Old Records Reveals: Labs, Records and Testing
Update Note
Update Note:
1345... Troponin positive. Patient mildly hypotensive but stable. Non-STEMI [place]. Family updated. Hospitalist contacted. Cardiology also involved.
ED Attending Note
-
Portions of this chart may have been created with voice recognition software.� Occasional wrong word or��sound alike� substitutions may have occurred due to the inherent limitations of voice recognition software.
Discharge Plan
Departure
Patient Disposition: Admit
Date of Disposition: 12/29/24
Time of Disposition: 13:42
Presentation/result/management discussed w/ accepting MD/DO: Hospitalist
Discharge Problem:
Non-STEMI [place], Near syncope, UTI
Prescriptions:
No Action
atorvastatin 10 mg Tablet
10 mg PO DAILY
diltiazem HCl 120 mg capsule,extended release 24hr
120 mg PO DAILY
furosemide 20 mg Tablet
20 mg PO Q48H@0800
Xarelto 20 mg Tablet
20 mg PO QPM
acetaminophen [Tylenol] 325 mg Tablet
650 mg PO Q6HPRN PRN (Reason: mild pain)
pantoprazole 40 mg Tablet,Delayed Release (Dr/Ec)
40 mg PO BID 56 Days Qty: 112 0RF
tramadol 50 mg Tablet
25 mg PO Q6HPRN PRN (Reason: moderate pain) 5 Days Qty: 20 0RF
Referrals:
Wale Chang MD [Family Provider] -
Interventions
Interventions:
*Risk Screen - Suicide Last Done: 12/29/24 11:32
*General Assessment Last Done: 12/29/24 11:32
*Neglect/Abuse Screening Last Done: 12/29/24 11:32
*ED- Fall Risk Assessment Last Done: 12/29/24 11:37
*ED COVID-19 Vaccine History Last Done: 12/29/24 11:37
ED- Cardiac Assessment Last Done: 12/29/24 11:36
ED- Neurological Assessment Last Done: 12/29/24 12:00
Discharge Date and Time
Print Language: MALIAN
[2024-12-29] MEDS: NSS 500 IV (12:47)
[2024-12-29 13:10] LABS: Urine Albumin 1+ (Neg - Trace); Urine Bilirubin Negative (Negative); Urine Character Clear (Clear); Urine Color Yellow; Urine Glucose Negative (Negative); Urine Ketone Negative (Negative); Urine Leukocyte 1+ (Negative); Urine Nitrite Positive (Negative); Urine Occult Blood 1+ (Negative); Urine Urobilinogen Negative (Neg - 1+)
[2024-12-29 13:38] LABS: Urine Bacteria Many (Negative); Urine Red Blood Cell 0-2 /HPF (0-2)
--- NOTE | 2024-12-29 13:38 | HPS.HSE ---
Family Physician
-
Family Physician: Wale Chang
Chief Complaint
-
Lightheadedness
History of Present Illness
Patient is an 89 y/o female past medical history of permanent atrial fibrillation, hypertension, hyperlipidemia, and chronic anemia who presents with lightheadedness and near syncope. Patient reports she has not felt well all morning. She forced
herself to eat breakfast because she was going over to her cottage at [place] today for a trial to determine if she can return. While on the walk over she reports getting very lightheaded. Her son was with her and put her in the wheelchair.
Patient does not believe she lost consciousness. She denies any chest pains, palpitations, shortness of breath and lower extremity edema.
Medical History
Past Medical History
Past Medical History: Reports Other
Additional Past Medical History:
Permanent Atrial Fibrillation
Essential Hypertension
Hyperlipidemia
Chronic Anemia
GERD
Cystic Kidney Disease
Abdominal Aortic Aneurysm
Lumbar Compression Fracture s/p Vertebroplasty
Past Surgical History: Reports Other
Additional Past Surgical History:
Bilateral Knee Surgery
Left Humerus ORIF
L2 Vertebroplasty
Cataract
Social History
Tobacco: Non-smoker
Alcohol: None
Drug: None
Personal:
Living: Other ([place] but usually resides in one of the independent [facility])
Employment: Retired
Family History
Family History: Other (Mother age 89 old age prior history of stroke father age 89 old age)
Allergies / Home Medications
Allergies reflects when Allergies were last updated in [employer].
Home Medications with original date entered in [employer]
Allergy/Medication List:
Allergies
Allergy/AdvReac Type Severity Reaction Status Date / Time
valsartan Allergy Severe anaphylaxis Verified 12/29/24 11:31
is
latex Allergy Rash Verified 12/29/24 11:31
Home Medications
atorvastatin 10 mg tablet 10 mg PO DAILY High Cholesterol 03/03/24
diltiazem HCl 120 mg capsule,extended release 24 hr 120 mg PO DAILY Arrhythmia 03/03/24
furosemide 20 mg tablet 20 mg PO Q48H@0800 Fluid Retention/Swelling 03/03/24
rivaroxaban 20 mg tablet (Xarelto) 20 mg PO QPM Blood Clot Prevention/Tx 06/07/24
acetaminophen 325 mg tablet (Tylenol) 650 mg PO Q6HPRN PRN mild pain 11/11/24
pantoprazole 40 mg tablet,delayed release 40 mg PO BID Gastrointestinal issue 8 weeks #112 tabs 11/22/24
tramadol 50 mg tablet 25 mg (1/2 x 50 mg) PO Q6HPRN PRN moderate pain 5 days #20 tabs 11/22/24
Review of Systems
-
A 12 point ROS was completed and negative except as noted: Yes
Constitutional: Denies Fever
Respiratory: Denies Cough or Trouble Breathing
Cardiac: Denies Chest Pain or Palpitations
Abdomen/GI: Reports Nausea; Denies Abdominal Pain, Vomiting or Diarrhea
Musculoskeletal: Denies Edema
Physical Exam
Vital Signs
Vital Signs
Temp Pulse Resp BP Pulse Ox
97.7 F 57 18 104/53 98
12/29/24 11:32 12/29/24 11:32 12/29/24 11:32 12/29/24 11:32 12/29/24 11:32
Physical Exam
General: Comfortable and Conversant
HEENT: Anicteric and Moist mucous membranes
Respiratory: Clear and Non Labored Respirations
Cardiac: S1/S2 and Irregular Rhythm
GI: Soft and Non Tender
Rectal: Deferred by Provider
Musculoskeletal: No Clubbing, No Cyanosis and No Edema
Skin: Warm and Dry
Neuro: Awake, Alert, Oriented and Nonfocal/grossly intact
Psych: Calm
Laboratory Results
-
12/29/24 11:47
12/29/24 11:47
Laboratory Results
Total Bilirubin 0.8 mg/dl (0.2-1.3) 12/29/24 11:47
AST 26 U/L (14-36) 12/29/24 11:47
ALT 12 U/L (0-35) 12/29/24 11:47
Alkaline Phosphatase 87 U/L (38-126) 12/29/24 11:47
Troponin I 2.640 ng/ml H* 12/29/24 12:55
Data Reviewed
-
CT Scan: Other (Head CT is pending)
Lab Data: Labs Reviewed by me
Impression/Plan
-
Near-Syncope, clinical concern for cardiac in nature in setting of elevated troponin
-Consult Cardiology
-Trend Troponin
-Check Echo
-Monitor on Telemetry
-Check Orthostatic VS
-Give Aspirin 162mg Now, and start Aspirin 81mg Daily
Permanent Atrial Fibrillation
-Continue Xarelto for anticoagulation
-Hold diltiazem as rate is low side
Essential Hypertension
-Hold Diltazem and Lasix
-Monitor blood pressure
Hyperlipidemia
-Continue atorvastatin
GERD
-Continue Protonix
DVT proph: Xarelto
Code Status: DNR
--- NOTE | 2024-12-29 13:42 | W.PN.UPDATE ---
Update Note
Progress Note Update
This is an addendum to H&P written by EMERSON Seymour
I saw and examined the patient.
The DRAPERY SEAMSTRESS's note was reviewed and I agree with the note.
Comment:
Ms. Raymond Lawrence is a 89 yo woman with hx paroxysmal Afib on Xarelto, GERD, HLD, recent admission for gastroenteritis with concern for Natalya-Solano tear and new L2 vertebral fx s/p kyphoplasty/vertebroplasty (11/18/24), presents to the ER with an
episode of pre-syncope/syncope. She was caught by her son to prevent falling. Troponin 2.640. She denies chest pain.
Triage VS: T 97.7, P 57, RR 18, BP 104/53, SpO2 98%
On exam: AAO x 3, in no acute distress, CV: S1, S2, RRR; Chest: clear, no LE swelling
LABS: WBC 8.1, Hg 9.9, PLT 209, Na 133, K+ 3.9, Cl 101, CO2 26, BUN 18, Cr 0.8, Glucose 135, liver enzymes WNL
Trop 2.640
EKG: atrial fibrillation with slow ventricular response, rate 48, nonspecific T wave abnormality, inferior and anterior leads
Syncope
Elevated Troponin
-s/p echo in ER, follow up read
-asa 162mg PO x 1 now, continue daily
-TTE
-hold BOARD SAW RUNNER Dilt, lasix for now
-Cardiology consulted - follow up recs on heparin versus continuing Xarelto
-awaiting med rec
Hx MWT
-continue BOARD SAW RUNNER Protonix
76 minutes spent on patient care
--- NOTE | 2024-12-29 13:45 | PHANOTE ---
med rec note - called nando rodriguez [phone] to get medication list, patient stated they come in and give her medication and divide them up differently then when she was at home.
--- NOTE | 2024-12-29 13:53 | PHANOTE ---
Addendum entered by Maru Ricks 12/29/24 15:37:
re called [facility] and spoke to Maria Elena on [facility]
Original Note:
med rec note called [facility] to have them fax over med list. called [phone] spoke to alfonso on the 4th floor of the health center
[2024-12-29] MEDS: ROCEPHIN 1000 MG IV (14:00)
[2024-12-29] MEDS: LOW STRENGTH ASPIRIN 162 MG PO (14:16)
--- NOTE | 2024-12-29 15:46 | CON.CAR ---
Addendum entered and electronically signed by Marc Castelan MD 12/29/24 16:49:
patient seen and examined
agree with REBA Myers's notes and assessment
agree with REBA Myers's plan
discussion with son and mom (patient) at bedside. She has normal EF% with LV wall motion abnormality mid-distal septum/apex. She has loss of R wave on available ECG's from 2024 suggesting old-subacute infarct. Non specific ST-T changes today. NO
active chest pain today. Orthostatic symptoms noted today. Has had prior. Recent admit for hematemesis
Exam:
Heent ncat
jvp 6
cor irregularly irregular
lungs ctab
abd soft nt nd
ext no edema
Assessment:
Presentation with unresponsive episode
Elevated troponin
Chronic anemia
Chronic hyponatremia
Suspected food poisoning with coffee-ground emesis/hematemesis felt to be secondary to Natalya-Solano tear 10/2024
Fall with L2 endplate fracture status post kyphoplasty/vertebroplasty 11/18/2024
Permanent atrial fibrillation
Chronic anticoagulation with Xarelto
Hypertension
Dyslipidemia
Osteoarthritis
History of fall/injury 2015 resulting in facial asymmetry, speech difficulties, and teeth extraction in 2019
History of diverticulitis
History of angioedema on ARB
Lexiscan nuclear stress test 02/2019: Mildly reversible defect in mid anteroseptal, mid inferoseptal, apical anterior, apical septal, apex segments consistent with ischemia versus STA, EF 63%
ECHO 06/27/2021: EF 55 to 60%, mild concentric LVH, MAC, mild MR, moderate TR, PAP 30 mmHg
ECHO 12/29/2024: EF 50%, mid to distal septum hypokinetic, apical hypokinesis, mild to moderate LVH, aortic sclerosis, moderate TR, PAP 35 to 40 mmHg
Plan:
-head CT without acute abnormalities
-On arrival troponin noted to be elevated at 2.6. trend to peak.
-echo with slight reduction in EF to 50% and apical/septal hypokinesis, new compared to prior echo from 2020
-She is without chest discomfort or shortness of breath. EKG afib with slow response and evidence of prior septal infarct but no acute abnormalities.
-difficult situation as patient with anemia and recent hematemesis, presumed secondary to Natalya-Solano tear from N/V on xarelto however no evaluation (ie EGD) was ever completed during that admission. hgb 9.9. concern for recurrent bleeding risk,
especially if would require stenting and DAPT in addition to OP xarelto
-do not believe patient is good candidate for triple therapy due to frailty
-d/w hospitalist and GI via TT. GI to evaluate patient. if felt to be stable from their standpoint can discuss cath as option, otherwise would opt for medical therapy as asymptomatic.
-consider holding xarelto with transition to IV heparin for now. add asa
-check CVE. on lipitor 10mg QPM
-BPs low but stable.
-continue PPI
-d/w patient and son at bedside-more to come after GI evaluation and risk stratification. I would think she is high risk for bleeding on anti-platelet regimen do appreciate GI evaluation
-DNR code status noted
Original Note:
Consultation
Consultation Request
Date/Time Consultation Performed: 12/29/24
Requesting Provider: Dr. Velásquez
Performing Provider: Hanna Myers PA-C for Dr. Castelan
Reason for Consultation: elevated troponin, syncope
Medical History
-
Chief Complaint: unresponsive episode
History of Present Illness:
Patient is an 89-year-old female with past medical history of permanent atrial fibrillation, chronic anticoagulation with Xarelto, hypertension, dyslipidemia, history of syncope who presented to [facility] for evaluation of unresponsive
episode. She had admission to [facility] 11/15 - 11/22/2024 for nausea vomiting as well as low back pain after a fall off of her loveseat. She was found to have started. Acute superior endplate fracture of L2 and underwent
kyphoplasty/vertebroplasty on 11/18/2024. She was noted to have coffee-ground emesis/hematemesis and GI evaluated patient, but she refused EGD at that time. GI felt most likely secondary to Natalya-Solano tear due to frequent nausea/vomiting and her
Xarelto was resumed. She was discharged to [facility] for rehab. She has been there since that time. Today she was undergoing evaluation by PT/OT to return to her [facility] She reports she did well. With the in-house portion. They took her
outside and while walking with her rollator became unresponsive for 30 seconds to a minute. Her son who was present ran and got a chair for her to sit in. He called security/EMS but by the time of their arrival she had come to. She denies
preceding lightheadedness, dizziness, chest pain, shortness of breath. On arrival to ER troponin elevated at 2.6. Cardiology consulted for evaluation.
PMH:
Suspected food poisoning with coffee-ground emesis/hematemesis felt to be secondary to Natalya-Solano tear 10/2024
Fall with L2 endplate fracture status post kyphoplasty/vertebroplasty 11/18/2024
Permanent atrial fibrillation
Chronic anticoagulation with Xarelto
Hypertension
Dyslipidemia
Osteoarthritis
History of fall/injury 2015 resulting in facial asymmetry, speech difficulties, and teeth extraction in 2019
History of diverticulitis
History of angioedema on ARB
Past Medical History
Past Medical History: Other (in HPI)
Social History
Tobacco: Non-Smoker
Alcohol: None
Living: Assisted Living (at [facility], but has been at [facility] since 10/2024 admission to )
Family History
Family History: Cancer, Diabetes and Other (CVA)
Allergies / Home Medications
Allergy/AdvReac Type Severity Reaction Status Date / Time
valsartan Allergy Severe anaphylaxis Verified 12/29/24 11:31
is
latex Allergy Rash Verified 12/29/24 11:31
�Medication �Instructions �Recorded �Confirmed �Type
atorvastatin 10 mg tablet 10 mg PO DAILY High Cholesterol 03/03/24 11/11/24 History
diltiazem HCl 120 mg 120 mg PO DAILY Arrhythmia 03/03/24 11/11/24 History
capsule,extended release 24 hr
furosemide 20 mg tablet 20 mg PO Q48H@0800 Fluid 03/03/24 11/11/24 History
Retention/Swelling
rivaroxaban 20 mg tablet (Xarelto) 20 mg PO QPM Blood Clot 06/07/24 11/11/24 History
Prevention/Tx
acetaminophen 325 mg tablet 650 mg PO Q6HPRN PRN mild pain 11/11/24 11/11/24 History
(Tylenol)
pantoprazole 40 mg tablet,delayed 40 mg PO BID Gastrointestinal 11/22/24 Rx
release issue 8 weeks #112 tabs
tramadol 50 mg tablet 25 mg (1/2 x 50 mg) PO Q6HPRN PRN 11/22/24 Rx
moderate pain 5 days #20 tabs
Review of Systems
-
History Source: Patient
All other systems: Negative unless noted
Physical Exam
Vital Signs
Temp Pulse Resp BP Pulse Ox
97.7 F 59 14 100/51 96
12/29/24 11:32 12/29/24 15:15 12/29/24 15:15 12/29/24 15:00 12/29/24 15:15
Lab Results
12/29/24 11:47
12/29/24 11:47
Troponin I 2.640 ng/ml H* 12/29/24 12:55
Physical Exam
General: No Apparent Distress and Comfortable
HEENT: Normocephalic, Anicteric and Moist Mucous Membranes
Respiratory: Clear and Non Labored Respirations
Cardiac: S1/S2 and Irregular Rhythm
GI: Soft, Non Tender, Non Distended and Normal Bowel Sounds
Musculoskeletal: No Clubbing, No Cyanosis and No Edema
Skin: Warm and Dry
Neuro: AO x 3 and Other (RUBY)
Impression / Plan
-
Primary Fruit Peeler: Dr. De La Rosa
Assessment:
Presentation with unresponsive episode
Elevated troponin
Chronic anemia
Chronic hyponatremia
Suspected food poisoning with coffee-ground emesis/hematemesis felt to be secondary to Natalya-Solano tear 10/2024
Fall with L2 endplate fracture status post kyphoplasty/vertebroplasty 11/18/2024
Permanent atrial fibrillation
Chronic anticoagulation with Xarelto
Hypertension
Dyslipidemia
Osteoarthritis
History of fall/injury 2015 resulting in facial asymmetry, speech difficulties, and teeth extraction in 2019
History of diverticulitis
History of angioedema on ARB
Lexiscan nuclear stress test 02/2019: Mildly reversible defect in mid anteroseptal, mid inferoseptal, apical anterior, apical septal, apex segments consistent with ischemia versus STA, EF 63%
ECHO 06/27/2021: EF 55 to 60%, mild concentric LVH, MAC, mild MR, moderate TR, PAP 30 mmHg
ECHO 12/29/2024: EF 50%, mid to distal septum hypokinetic, apical hypokinesis, mild to moderate LVH, aortic sclerosis, moderate TR, PAP 35 to 40 mmHg
Plan:
-Patient presented to [facility] due to unresponsive episode while working with physical therapy earlier today at [facility]. Episode lasted approximately 30 seconds to 1 minute and was witnessed by PT staff and patient's son who is
presently at bedside
-head CT without acute abnormalities
-On arrival troponin noted to be elevated at 2.6. trend to peak.
-echo with slight reduction in EF to 50% and apical/septal hypokinesis, new compared to prior echo from 2020
-She is without chest discomfort or shortness of breath. EKG afib with slow response and evidence of prior septal infarct but no acute abnormalities.
-last ischemic eval from 2018 as above
-difficult situation as patient with anemia and recent hematemesis, presumed secondary to Natalya-Solano tear from N/V on xarelto however no evaluation (ie EGD) was ever completed during that admission. hgb 9.9. concern for recurrent bleeding risk,
especially if would require stenting and DAPT in addition to OP xarelto
-do not believe patient is good candidate for triple therapy due to frailty
-d/w hospitalist and GI via TT. GI to evaluate patient. if felt to be stable from their standpoint can discuss cath as option, otherwise would opt for medical therapy as asymptomatic.
-consider holding xarelto with transition to IV heparin for now. add asa
-check CVE. on lipitor 10mg QPM
-BPs low but stable.
-continue PPI
-d/w patient and son at bedside
-DNR code status noted
Data Reviewed
-
EKG: Tracing Personally Visualized and interpreted
Radiology: Report Reviewed by me
Medical Tests (Nuc Med, Echo etc): Report Reviewed by me
Labs: Labs Reviewed by me
Old Records: Reviewed
[2024-12-29 16:07] LABS: Iron 48 ug/dl (37-170)
[2024-12-29 16:16] LABS: Percent Saturation 20 % (20-50); Total Iron Binding Capacity 230 ug/dl (265-497)
--- NOTE | 2024-12-29 16:36 | CON.GI ---
Addendum entered and electronically signed by Aye Valentine DO 12/29/24 19:42:
Patient seen and examined independently of HARRY. I agree with her note with my additions below
Raymond is an 89-year-old female with history of A-fib currently on Xarelto, prior questionable ischemic versus infectious colitis in May 2024 who comes in with lightheadedness and near syncope with no significant changes in her anemia over the
last month. Her hemoglobin in November was 10 and it is stable today currently 9.9. She has had no active bleeding. She was here in November for a suspected viral gastroenteritis and was vomiting profusely ended up having some coffee-ground
emesis while on her Xarelto. She did not significantly drop her hemoglobin and did not require transfusion. She was sent home on twice daily PPI and has not had any further issues.
Cardiology wanted to take her for cardiac catheterization but wanted us to get involved to ensure no significant risk of bleeding.
Overall, this patient is already on Xarelto and her hemoglobin is stable from November and she has no overt bleeding. She is on twice daily PPI already. I would go ahead and evaluate her for heart catheterization if it is necessary. Her risk of
rebleeding is unclear but is likely low since she is already on Xarelto and not having any bleeding issues. Her anemia is chronic and not far from baseline.
Would proceed to heart catheterization without endoscopy. If the patient was significantly bleeding, would consider it but without any active issues and her being on Xarelto with a stable hemoglobin we will not take that risk.
If she has any active bleeding, please call us back but I would proceed to cardiac catheterization per cardiology if necessary
Original Note:
Consultation
-
Date/Time Consultation Requested: 12/29/24 1615
Date/Time Consultation Performed: 12/29/24 1620
Requesting Provider: Dr. Velásquez
Performing Provider: Dr. Valentine/HARRY Browning
Reason for Consultation: Hx of prior hematemesis with current elevated troponin
Medical History
Chief Complaint / HPI
Chief Complaint: near syncope
History of Present Illness:
89 year old female with a past medical history of atrial fibrillation (on Xarelto), HTN, hyperlipidemia, chronic anemia, episode of infectious vs ischemic colitis in 05/2024, colon polyps, recent L2 vertebral fracture status post
kyphoplasty/vertebroplasty (11/18/2024), prior history of hematemesis likely secondary suspected Natalya-Solano tear given her preceding nonbilious, nonbloody emesis likely secondary due to prior viral gastritis versus food poisoning on 11/10/2024.
She had no alteration in her bowel movements during that time. She was kept on pantoprazole 40 mg twice daily since that time. She was placed back on her Xarelto. She never did have an endoscopy before. She declined it at that time. She did have
a colonoscopy with in 2012. She does not smoke or drink alcohol. Occasional NSAID use. She is currently convalescing after having her kyphoplasty, vertebroplasty. She at rehab facility and was working with physical therapy and Occupational
Therapy in the presence of her son today and during that time was walking when she became presyncopal/syncopal and felt 'funny'. They moved her back into the wheelchair and proceeded to come to the emergency room. She denies any chest pain,
shortness of breath. She did have a feeling of being sick to her stomach prior to her episode. This is since resolved. She states her bowel movements are brown soft and regular on a daily basis. She has been eating and drinking prior to this
without any difficulty. Patient is on pantoprazole 40 mg p.o. twice daily. Medications have been verified with [facility]. We are asked to evaluate given patient's prior history of hematemesis on 11/10/2024 and current elevated troponin of 2.64.
With possible need for cardiac catheterization. Patient is currently on Xarelto without any obvious signs of bleeding. She has been on Xarelto at [facility]. Currently WBC 8.1, hemoglobin 9.9 (previously 9.3 on December 19, and her hemoglobin has been
running in the 9-11 range chronically since 2018), MCV 87.0, MCH 28.0, platelets 209, BUN 18, creatinine 0.8, iron 48, TIBC 230, percent iron saturation 20, ferritin pending, total bilirubin 0.8, AST 26, ALT 12, alk phos 87, troponin 2.640 repeats
pending, albumin 3.3, B12 pending, folate pending.
Past Medical History
Past Medical History: HTN, Hypercholesterolemia and Other (permanent atrial fibrillation (on Xarelto))
Past Surgical History: Other (cataracts, D&C, left shoulder repair, knee surgery, vertebroplasty, kyphoplasty)
Social History
Tobacco: Non-Smoker
Alcohol: None
Drug: None
Personal:
Living: Other (Currently in rehab facility)
Family History
Family History: Other (No family history of gastrointestinal malignancy or IBD)
Allergies / Home Medications
Allergy/AdvReac Type Severity Reaction Status Date / Time
valsartan Allergy Severe anaphylaxis Verified 12/29/24 11:31
is
latex Allergy Rash Verified 12/29/24 11:31
�Medication �Instructions �Recorded
atorvastatin 10 mg tablet 10 mg PO DAILY High Cholesterol 03/03/24
diltiazem HCl 120 mg 120 mg PO DAILY Arrhythmia 03/03/24
capsule,extended release 24 hr
furosemide 20 mg tablet 20 mg PO DAILY Fluid 03/03/24
Retention/Swelling
rivaroxaban 20 mg tablet (Xarelto) 20 mg PO QPM Blood Clot 06/07/24
Prevention/Tx
pantoprazole 40 mg tablet,delayed 40 mg PO BID Gastrointestinal 11/22/24
release issue 8 weeks #112 tabs
acetaminophen 500 mg tablet 1,000 mg PO TIDPRN PRN MILD PAIN 12/29/24
(Tylenol Extra Strength)
bisacodyl 10 mg rectal suppository 10 mg WI DAILYPRN PRN CONSTIPATION 12/29/24
(Dulcolax (bisacodyl))
gabapentin 100 mg capsule 100 mg PO HS 12/29/24
magnesium hydroxide 400 mg/5 mL 2,400 mg PO DAILYPRN PRN 12/29/24
oral suspension (Milk of Magnesia) CONSTIPATION
sodium phosphates 19 gram-7 118 ml WI DAILYPRN PRN CONSTIPATION 12/29/24
gram/118 mL enema (Fleet Enema)
Review of Systems
-
All other systems: A 12 pt ROS was Negative except as stated above in HPI
Vital Signs
Temp Pulse Resp BP Pulse Ox
97.7 F 59 14 100/51 96
12/29/24 11:32 12/29/24 15:15 12/29/24 15:15 12/29/24 15:00 12/29/24 15:15
Physical Exam
Exam
General: No Apparent Distress
HEENT: Anicteric and Other (mild loss right nasolabial fold (old facial injury per patient and son))
Respiratory: Clear (Anterior)
Cardiac: Irregular Rhythm
GI: Soft, Non Tender, Non Distended and Normal Bowel Sounds
Skin: Warm and Dry
Neuro: AO x 3
Psych: Calm
Results
WBC 8.1 10^3/uL (4.8-10.8) 12/29/24 11:47
Hgb 9.9 g/dL (12.0-16.0) L 12/29/24 11:47
Hct 30.7 % (37.0-47.0) L 12/29/24 11:47
MCV 87.0 fL (81.0-99.0) 12/29/24 11:47
Plt Count 209 10^3/uL (130-400) 12/29/24 11:47
Absolute Neuts (auto) 5.7 10^3/uL (1.4-6.5) 12/29/24 11:47
Sodium 133 mmol/L (135-145) L 12/29/24 11:47
Potassium 3.9 mmol/L (3.5-5.1) 12/29/24 11:47
Chloride 101 mmol/L (98-107) 12/29/24 11:47
Carbon Dioxide 26 mmol/L (22-30) 12/29/24 11:47
BUN 18 mg/dl (7-17) H 12/29/24 11:47
Creatinine 0.8 mg/dL (0.6-1.0) 12/29/24 11:47
Calcium 8.9 mg/dl (8.4-10.2) 12/29/24 11:47
Total Bilirubin 0.8 mg/dl (0.2-1.3) 12/29/24 11:47
AST 26 U/L (14-36) 12/29/24 11:47
ALT 12 U/L (0-35) 12/29/24 11:47
Alkaline Phosphatase 87 U/L (38-126) 12/29/24 11:47
Diagnostic Image Results:
Prior GI Procedures:
EGD:
Colonoscopy: 06/23/2013 (Dr. Bell) - Diverticulosis in the sigmoid colon.
- One 2 mm polyp in the rectum. Resected and retrieved.
- One 9 mm polyp in the sigmoid colon. Resected and
retrieved.
- One 3 mm polyp in the ascending colon. Resected and
retrieved.
Assessment / Plan
-
89 year old female with a past medical history of atrial fibrillation (on Xarelto), HTN, hyperlipidemia, chronic anemia, recent L2 vertebral fracture status post kyphoplasty/vertebroplasty (11/18/2024), prior history of hematemesis likely secondary
suspected Natalya-Solano tear given her preceding nonbilious, nonbloody emesis likely secondary due to prior viral gastritis versus food poisoning on 11/10/2024. She had no alteration in her bowel movements during that time. She was kept on
pantoprazole 40 mg twice daily since that time. She was placed back on her Xarelto. She never did have an endoscopy before. She declined it at that time. She did have a colonoscopy with Dr. Bell in 2012. Her hemoglobin has remained in her
baseline range of 9 since discharge. Currently without any GI complaints except for mild nausea preceding her near syncopal/syncopal event. Currently she is here with elevation of troponin of 2.640, echo with normal EF, LV wall motion abnormality
mid�distal septum/apex. Nonspecific ST�T changes today.
Impression:
Syncope/near syncope
Elevated Troponin 2.640
A fib on Xarelto
Chronic anemia
Hx of coffee ground emesis (limited event-> felt secondary to possible Natalya-Solano tear in the setting of either viral gastroenteritis versus food poisoning 11/10/2024)
--> Continued on pantoprazole 40 mg p.o. twice daily
--> No GI symptoms, including GERD, melena, hematochezia or dyspepsia
--> Isolated episode of nausea preceding syncopal near syncopal event
Plan:
-Continue pantoprazole 40 mg p.o. twice daily
-Cardiology considering options for possible cardiac cath. Discussed with patient's son.
-At present time no plans for endoscopic intervention and less with signs of active bleeding, however will discuss with GI attending on-call.
-
-
Thank you for consultation and allowing me to participate in the patient's care. Please call the professional skater GI physician during the after hours with any questions or concerns.
[2024-12-29 17:32] LABS: Folate 4.6 ng/ml (2.76-20); Vitamin B12 290 pg/ml (239-931)
[2024-12-29] MEDS: NSS 1000 IV (17:50)
--- NOTE | 2024-12-29 19:15 | PTCARENOTE ---
Received patient from [facility] AAOx[facility]. Pt oriented to room. IVF started as ordered. Heparin Drip ordered to start at 20:00 tonight. Spoke with PA from cardiology to confirm start time. Time is correct. Baseline PTT ordered for 1899. Pt tolerated diet
well. Pt offered no complaints. Made patient comfortable. Cont to assess patient status.
[2024-12-29 19:48] LABS: APTT 43.5 Sec (23.4-35.0)
[2024-12-29] MEDS: NEURONTIN 100 MG PO (20:07)
[2024-12-29] MEDS: PROTONIX 40 MG PO (20:07)
[2024-12-29] MEDS: HEPARIN 25000 UNITS/250 ML IV (20:08)
[2024-12-30] VITALS (8 sets, daily range): BP systolic 99–165; BP diastolic 58–124; PULSE 66–88; O2SAT 97–98; BMI 23.9
[2024-12-30 02:45] LABS: APTT 105.5 Sec (23.4-35.0)
[2024-12-30 05:59] LABS: Hematocrit 27.8 % (37.0-47.0); Hemoglobin 9.1 g/dL (12.0-16.0); Mean Corp Hgb Conc. 32.7 g/dL (33.0-37.0); Mean Corpuscular Hgb 28.2 pg (27.0-31.0); Mean Corpuscular Volume 86.1 fL (81.0-99.0); Platelet Count 195 10^3/uL (130-400); Red Blood Cell Count 3.23 10^6/uL (4.20-5.40); Red Cell Dist. Width 18.6 % (11.5-14.5); White Blood Cell Count 5.4 10^3/uL (4.8-10.8)
[2024-12-30 06:26] LABS: Blood Urea Nitrogen 15 mg/dl (7-17); Calcium 8.7 mg/dl (8.4-10.2); Carbon Dioxide 26 mmol/L (22-30); Chloride 104 mmol/L (98-107); Estimated Creatinine Clearance 50 ml/min; Glucose 93 mg/dl (70-99); HDL Cholesterol 45 mg/dl; LDL Cholesterol, Calculated 30 mg/dl; Magnesium 1.9 mg/dl (1.6-2.3); Potassium 4.2 mmol/L (3.5-5.1); Sodium 137 mmol/L (135-145); Total Cholesterol 91 mg/dl (50-199); Triglyceride 82 mg/dl (10-149); Very Low Density Lipoprotein 16 mg/dl (0-30); eGFR > 60.00
[2024-12-30 06:53] LABS: TSH Reflex To Free T4 2.03 uIU/ml (0.47-4.68)
[2024-12-30 08:55] LABS: APTT 100.5 Sec (23.4-35.0)
[2024-12-30 09:12] LABS: Glycohemoglobin (HgbA1c) 5.3 % (4.0-5.6)
[2024-12-30] MEDS: LIPITOR 10 MG PO (09:29)
[2024-12-30] MEDS: PROTONIX 40 MG PO ×2 (09:29→20:37)
[2024-12-30] MEDS: LOW STRENGTH ASPIRIN 81 MG PO (09:29)
--- NOTE | 2024-12-30 09:45 | W.PN.HOSP.TC ---
Today's Communication/Plan
-
Heparin drip. Cardiac monitoring. Monitoring hemoglobin.
Assessment / Plan
Assessment / Plan
Physical exam:
General: Well Developed, Well Nourished and No Apparent Distress
HEENT: Normocephalic, Atraumatic and Moist Mucous Membranes
Respiratory: Clear to Auscultation; Negative Wheezes, Rales or Rhonchi
Cardiac: Regular Rhythm and S1/S2
GI: Soft, Nontender and Nondistended
Musculoskeletal: No Clubbing, No Cyanosis and No Edema
Neuro: Awake, Alert and Oriented
Psych: Calm
A/P:
Unresponsive episode:
Cardiac monitoring
Checking orthostatic
Echocardiogram EF 50% and new wall motion abnormalities with mid to distal septum hypokinetic with apical hypokinesis as well. Moderate tricuspid regurgitation. Estimated PA 35 to 40 mmHg
Discussed with son at bedside today
Elevated troponin:
On heparin drip
On dual antiplatelet therapy (aspirin and Plavix) and statin
Discussed with cardiology today and challenging with heparin drip and monitor over the weekend to see if candidate for cardiac cath after the weekend and also discussed with GI who will follow-up as well
Anemia:
Chronic anemia, rule out acute blood loss
Hemoglobin 9.1 today
History of ischemic versus infectious colitis back in 2023 and recent hematemesis felt to be Natalya-Solano back in October of this year
GI on consult
Continue oral PPI twice daily
Hypertension/hypotension:
Holding antihypertensive and diuretics
Hyperlipidemia:
Continue statin
Permanent atrial fibrillation:
Holding rate controlled
On heparin drip and holding Xarelto
DVT prophylaxis:
Heparin gtt
CODE STATUS:
DNR
Total time spent on today's encounter was 52 minutes which included time spent in counseling the patient/family regarding diagnosis and treatment plan as listed above, goals of care, and symptom management. Case was discussed with nursing staff,
specialists, and care coordinators/case management. All labs and imaging personally reviewed by me. Remainder the time spent in detailed review of previous records, lab data, imaging, and other medical provider documentation.
Anticipated Discharge: > 48 hours
Subjective/Interval History
-
Date of Service: December 30, 2024
Patient feels well today. No chest pain or shortness of breath
Objective Data
-
Labs:
Laboratory Results
12/30/24 12/30/24 12/30/24
02:26 05:36 08:26
WBC 5.4
Hgb 9.1 L
Hct 27.8 L
Plt Count 195
APTT 105.5 H 100.5 H
Sodium 137
Potassium 4.2
Chloride 104
Carbon Dioxide 26
BUN 15
Creatinine 0.7
Glucose 93
Calcium 8.7
Vital Signs:
Vital Signs
Temp Pulse Resp BP Pulse Ox
98.4 F 79 20 144/86 93
12/30/24 07:40 12/30/24 07:40 12/30/24 07:40 12/30/24 07:40 12/30/24 07:40
I&O
12/29/24 12/30/24 12/31/24
06:59 06:59 06:59
Intake Total 1140 / 1140
Balance 1140 / 1140
--- NOTE | 2024-12-30 12:27 | CM ---
Patient seen bedside.
IA completed.
Patient lives alone in [place] at [place].
Patient recently in [place] and would like to return for skilled rehab.
Referral placed.
PT/OT recommending skilled rehab.
patient hs a rollator for ambulation.
No hx VN.
Patient does not drive.
Son would be able to transport home.
PCP: Dr Chang
Pharmacy: [facility]
Plan: skilled rehab once medically stable and bed available.
--- NOTE | 2024-12-30 12:36 | WOUNDNOTE ---
L GREAT TOE TIP
--- NOTE | 2024-12-30 12:40 | WOUNDNOTE ---
DANTE RN note: Patient admitted with Non-Stemi PA, near syncope and UTI
See H&P for complete history. From [facility].
PMH: ED Past Medical History: Arrthythmia (Atrial fib), Cancer (Skin CA), GERD, HTN and Other (DIVERTICULOSIS, tonic A. fib on Xarelto, syncope, chronic hearing loss, Hemorrhoids, )
ED Past Surgical History: Gynecological (D&C, ), Orthopedic (Bilateral knee cartilage removed, Left shoulder repair) and Other (Cataracts)
Wound Location and type/assessment: Patient admitted with: L heel dried up carter blister, no drainage or pain reports patient. L great toe tip red with a dry abrasion. Patient reports she had swelling in her feet and sneaker had rubbed against toe
and heel. 'PT has been getting me up allot and walking at [facility]' states patient. Suspect heel blister is not a deep tissue injury, more superficial. R heel is intact, B/L + palpable pedal pulses, no edema. Protective foams in use on heels,
patient able to lift legs to assess and currently sitting in chair. Had patient stand and assessed intact sacrum.
Appetite: NPO, otherwise patient reports good.
Pressure redistribution devices in place: [employer]a bed, able to turn self in bed patient reports.
Plan: Foam changed on heels, offloading with pillow under calves. Can add air chair cushion on pillow if needed.
Will confirm orders with hospitalist and updated nurse Brenda. Updated care plan and will follow as needed.
Note to case management of equipment requested for discharge: None.
Recommend follow up at wound care center upon discharge.
[2024-12-30] MEDS: PLAVIX 300 MG PO (13:28)
--- NOTE | 2024-12-30 14:21 | W.PN.CARDCBS ---
Addendum entered and electronically signed by Yumiko De La Rosa DO 12/30/24 18:16:
Updated son via telephone
Addendum entered and electronically signed by Yumiko De La Rosa DO 12/30/24 18:10:
I saw and examined the patient.
The [employer]ger's note was reviewed and I agree with the note.
Comment: Patient was seen and examined. Chart/telemetry/studies reviewed. She denies dizziness/lightheadedness. No chest pain or pressure.
GEN: NAD, OOB to chair
HEENT: mmm
LUNGS: CTA bilaterally, no wheezes/rales
CV: Reg, S1/S2, 2/6 SM
ABD: soft, BS+, NT/ND
EXT: No cyanosis, clubbing, edema
Plan:
Presented with unresponsive episode fortunately without injury of unclear etiology
-Remains in atrial fibrillation with heart rates on the lower side; will avoid AV bess blocking agents at this point continue to monitor on telemetry
-Orthostatic vital signs were negative.
-Head CT without acute abnormality
-Grossly nonfocal on exam today
-Will check carotid duplex
Patient's 2D echocardiogram showed a new reduction in ejection fraction with a EF now 50% with regional wall motion abnormalities which were new compared to 2020
-Although she does not give distinct complaints of chest discomfort or shortness of breath, her troponin peaked at 2.7 [did not receive outpatient heroic efforts]
-Would like to proceed with a ischemic evaluation, preferably left heart catheterization however she has had anemia and prior episode of hematemesis during an episode of food poisoning back in October
-GI consult reviewed and discussed plan with GI. Continue PPI, heme test stool pending. Have transition patient's outpatient Xarelto to IV heparin and aspirin. Will load with Plavix and monitor hemoglobin over the weekend.
-If hemoglobin remains stable can consider left heart catheterization next week. Patient is in agreement with this plan
-Close monitoring of H&H
-Continue statin. LDL 30.
Atrial fibrillation with controlled heart rates/bradycardia
-Monitor on telemetry
-Previously on Xarelto anticoagulation now on IV heparin for possible procedures next week
Will follow with you
Original Note:
Today's Communication / Plan
-
Plavix load
Monitor for worsening anemia or bleeding on aspirin, Plavix, IV heparin
If tolerates and desired by patient, consider catheterization early next week
Impression / Plan
-
Primary Graphics Coordinator: Dr. De La Rosa
Assessment:
Presentation with unresponsive episode
Elevated troponin
Chronic anemia
Chronic hyponatremia
Suspected food poisoning with coffee-ground emesis/hematemesis felt to be secondary to Natalya-Solano tear 10/2024
Fall with L2 endplate fracture status post kyphoplasty/vertebroplasty 11/18/2024
Permanent atrial fibrillation
Chronic anticoagulation with Xarelto
Hypertension
Dyslipidemia
Osteoarthritis
History of fall/injury 2015 resulting in facial asymmetry, speech difficulties, and teeth extraction in 2019
History of diverticulitis
History of angioedema on ARB
Lexiscan nuclear stress test 02/2019: Mildly reversible defect in mid anteroseptal, mid inferoseptal, apical anterior, apical septal, apex segments consistent with ischemia versus STA, EF 63%
ECHO 06/27/2021: EF 55 to 60%, mild concentric LVH, MAC, mild MR, moderate TR, PAP 30 mmHg
ECHO 12/29/2024: EF 50%, mid to distal septum hypokinetic, apical hypokinesis, mild to moderate LVH, aortic sclerosis, moderate TR, PAP 35 to 40 mmHg
Plan:
-Patient presented to [facility] due to unresponsive episode while working with physical therapy at [place] 12/29.
-head CT without acute abnormalities
-trop peaked at 2.7.
-echo with slight reduction in EF to 50% and apical/septal hypokinesis, new compared to prior echo from 2020
-She is without chest discomfort or shortness of breath. remains in afib with controlled ventricular response
-last ischemic eval from 2019 as above
-difficult situation as patient with anemia and recent hematemesis, presumed secondary to Natalya-Solano tear from N/V on xarelto however no evaluation (ie EGD) was ever completed during that admission. hgb 9.1 on 12/30. concern for recurrent bleeding
risk, especially if would require stenting and DAPT in addition to OP xarelto
-do not believe patient is good candidate for triple therapy due to frailty
-will continue asa and IV heparin. will load with plavix today and continue 75mg daily starting 12/31. monitor tolerance through weekend. could consider cardiac catheterization early next week if tolerating regimen without significant drop in hgb or
bleeding.
-hemetest stools
-LDL 30. continue lipitor 10mg QPM.
-HRs on low side in afib with controlled response on review of tele so will hold off on BB for now.
-DNR code status noted
-d/w nursing
Progress Note - Graphics Coordinator
Subjective
Date of Service: December 30, 2024
No chest pain, shortness of breath, unresponsive episodes
Objective
Labs:
12/30/24 05:36
12/30/24 05:36
Labs
Hgb 9.1 g/dL (12.0-16.0) L 12/30/24 05:36
Hct 27.8 % (37.0-47.0) L 12/30/24 05:36
Plt Count 195 10^3/uL (130-400) 12/30/24 05:36
APTT 100.5 Sec (23.4-35.0) H 12/30/24 08:26
Sodium 137 mmol/L (135-145) 12/30/24 05:36
Potassium 4.2 mmol/L (3.5-5.1) 12/30/24 05:36
BUN 15 mg/dl (7-17) 12/30/24 05:36
Creatinine 0.7 mg/dL (0.6-1.0) 12/30/24 05:36
Glucose 93 mg/dl (70-99) 12/30/24 05:36
Troponins
12/29/24 12/29/24 12/29/24
12:55 16:45 23:21
Troponin I 2.640 H* 2.710 H* 2.030 H* D
12/30/24
05:36
Troponin I 1.690 H*
Vital Signs and I&O:
Vital Signs
Temp Pulse Resp BP Pulse Ox
98.3 F 75 18 116/70 96
12/30/24 11:25 12/30/24 11:25 12/30/24 11:25 12/30/24 11:25 12/30/24 11:25
Vital Signs
Temp Pulse Resp BP Pulse Ox
98.3 F 75 18 116/70 96
12/30/24 11:25 12/30/24 11:25 12/30/24 11:25 12/30/24 11:25 12/30/24 11:25
Intake & Output
12/28/24 12/29/24 12/30/24 12/31/24
07:59 07:59 07:59 07:59
Intake Total 1140 / 1140
Balance 1140 / 1140
Physical Exam
Physical Exam
GEN: No distress, awake, alert, oriented x3. Sitting in chair
HEENT: supple, anicteric, mmm, EOMI
LUNGS: CTA bilaterally, no wheezes/rales
CV: Reg, S1/S2, no murmur
ABD: soft, BS+, NT/ND
EXT: No cyanosis, clubbing, edema
NEURO: Gross non-focal
SKIN: warm, pink, dry. No rash
--- NOTE | 2024-12-30 18:41 | PTCARENOTE ---
Received patient this am AAOx3. IVF capped. Hearing drip running with out difficulty. Pt tolerated diet. Offered no complaints. Made patient comfortable. Cont to assess patient status.
[2024-12-30] MEDS: NEURONTIN 100 MG PO (20:59)
[2024-12-31] MEDS: HEPARIN 25000 UNITS/250 ML IV (01:17)
[2024-12-31 03:50] VITALS: BP 137/64
[2024-12-31 06:00] VITALS: BMI 23.6
[2024-12-31 07:20] VITALS: BP 122/68; BP 127/65; BP 133/64; PULSE 69; PULSE 74; PULSE 76
[2024-12-31 07:54] LABS: Hematocrit 28.4 % (37.0-47.0); Hemoglobin 9.5 g/dL (12.0-16.0); Mean Corp Hgb Conc. 33.5 g/dL (33.0-37.0); Mean Corpuscular Hgb 28.1 pg (27.0-31.0); Mean Platelet Volume 8.8 fL (7.4-10.4); Platelet Count 209 10^3/uL (130-400); Red Blood Cell Count 3.38 10^6/uL (4.20-5.40); Red Cell Dist. Width 18.2 % (11.5-14.5); White Blood Cell Count 4.9 10^3/uL (4.8-10.8)
[2024-12-31 08:11] LABS: APTT 72.1 Sec (23.4-35.0)
[2024-12-31 08:13] LABS: Blood Urea Nitrogen 14 mg/dl (7-17); Carbon Dioxide 26 mmol/L (22-30); Chloride 103 mmol/L (98-107); Estimated Creatinine Clearance 50 ml/min; Glucose 89 mg/dl (70-99); Potassium 4.2 mmol/L (3.5-5.1); Sodium 135 mmol/L (135-145); eGFR > 60.00
--- NOTE | 2024-12-31 09:00 | W.PN.HOSP.TC ---
Today's Communication/Plan
-
Heparin drip.
Assessment / Plan
Assessment / Plan
Physical exam:
General: Well Developed, Well Nourished and No Apparent Distress
HEENT: Normocephalic, Atraumatic and Moist Mucous Membranes
Respiratory: Clear to Auscultation; Negative Wheezes, Rales or Rhonchi
Cardiac: Regular Rhythm and S1/S2
GI: Soft, Nontender and Nondistended
Musculoskeletal: No Clubbing, No Cyanosis and No Edema
Neuro: Awake, Alert and Oriented
Psych: Calm
A/P:
Unresponsive episode:
Cardiac monitoring
Checking orthostatic
Echocardiogram EF 50% and new wall motion abnormalities with mid to distal septum hypokinetic with apical hypokinesis as well. Moderate tricuspid regurgitation. Estimated PA 35 to 40 mmHg
Discussed with son at bedside yesterday
Elevated troponin:
On heparin drip
On dual antiplatelet therapy (aspirin and Plavix) and statin
Discussed with cardiology today and challenging with heparin drip and monitor over the weekend to see if candidate for cardiac cath after the weekend and also discussed with GI who will follow-up as well
Anemia:
Chronic anemia, rule out acute blood loss
Hemoglobin 9.1 today
History of ischemic versus infectious colitis back in 2023 and recent hematemesis felt to be Natalya-Solano back in October of this year
GI on consult
Continue oral PPI twice daily
Hypertension/hypotension:
Holding antihypertensive and diuretics
Hyperlipidemia:
Continue statin
Permanent atrial fibrillation:
Holding rate controlled
On heparin drip and holding Xarelto
DVT prophylaxis:
Heparin gtt
CODE STATUS:
DNR
Total time spent on today's encounter was 52 minutes which included time spent in counseling the patient/family regarding diagnosis and treatment plan as listed above, goals of care, and symptom management. Case was discussed with nursing staff,
specialists, and care coordinators/case management. All labs and imaging personally reviewed by me. Remainder the time spent in detailed review of previous records, lab data, imaging, and other medical provider documentation.
Anticipated Discharge: > 48 hours
Subjective/Interval History
-
Date of Service: December 31, 2024
Patient denies any chest pain or shortness of breath. No evidence of active bleeding
Objective Data
-
Labs:
Laboratory Results
12/31/24 12/31/24
07:16 14:46
WBC 4.9
Hgb 9.5 L
Hct 28.4 L
Plt Count 209
APTT 72.1 H Pending
Sodium 135
Potassium 4.2
Chloride 103
Carbon Dioxide 26
BUN 14
Creatinine 0.7
Glucose 89
Calcium 9.0
Vital Signs:
Vital Signs
Temp Pulse Resp BP Pulse Ox
98.3 F 69 18 133/64 95
12/31/24 07:20 12/31/24 07:20 12/31/24 07:20 12/31/24 07:20 12/31/24 07:20
I&O
12/30/24 12/31/24 01/01/25
06:59 06:59 06:59
Intake Total 1140 / 1140 96 / 296 200 / 200
Output Total 320 / 320
Balance 1140 / 1140 -224 / -24 200 / 200
--- NOTE | 2024-12-31 09:19 | W.PN.CARDCBS ---
Today's Communication / Plan
-
Monitor hemoglobin over the weekend and if Hgb stable can consider left heart catheterization next week
Impression / Plan
-
Primary Slab Grinder: Dr. De La Rosa
Assessment:
Presentation with unresponsive episode
Elevated troponin
Chronic anemia
Chronic hyponatremia
Suspected food poisoning with coffee-ground emesis/hematemesis felt to be secondary to Natalya-Solano tear 10/2024
Fall with L2 endplate fracture status post kyphoplasty/vertebroplasty 11/18/2024
Permanent atrial fibrillation
Chronic anticoagulation with Xarelto
Hypertension
Dyslipidemia
Osteoarthritis
History of fall/injury 2015 resulting in facial asymmetry, speech difficulties, and teeth extraction in 2019
History of diverticulitis
History of angioedema on ARB
Lexiscan nuclear stress test 02/2019: Mildly reversible defect in mid anteroseptal, mid inferoseptal, apical anterior, apical septal, apex segments consistent with ischemia versus STA, EF 63%
ECHO 06/27/2021: EF 55 to 60%, mild concentric LVH, MAC, mild MR, moderate TR, PAP 30 mmHg
ECHO 12/29/2024: EF 50%, mid to distal septum hypokinetic, apical hypokinesis, mild to moderate LVH, aortic sclerosis, moderate TR, PAP 35 to 40 mmHg
Plan:
Patient presented to [facility] due to unresponsive episode while working with physical therapy at [employer] 12/29.
No clear etiology. Orthostatic vital signs were negative, at least when assessed during hospital stay. Head CT without acute abnormalities
She has atrial fibrillation with rates that are mildly bradycardic at time but would not result in loss of consciousness.
She does have elevated troponin and new wall motion abnormality on echocardiogram
trop peaked at 2.7.
echo with slight reduction in EF to 50% and apical/septal hypokinesis, new compared to prior echo from 2020
last ischemic eval from 2019 as above
Anemic and recent hematemesis, presumed from Natalya-Solano tear from N/V on xarelto but no evaluation (ie EGD) during that admission.
Discussed plan with GI. Continue PPI, heme test stool pending. Xarelto on hold, now on IV heparin and aspirin and loaded with Plavix andf now on Plavix 75 mg daily
Monitor hemoglobin over the weekend and if Hgb stable can consider left heart catheterization next week (may need 'triples' with DAPT + Xarelto). Patient is in agreement with this plan
LDL 30. Continue lipitor 10mg QPM.
No beta-jeremy at present due to to concerns of bradycardia arrhythmia playing a role in her altered mental status/acute unresponsiveness.
Atrial fibrillation with controlled heart rates/bradycardia
We have discontinued diltiazem 120 mg daily over concern that bradycardia could have played a role in her unresponsive episode
Monitor on telemetry
Previously on Xarelto anticoagulation now on IV heparin for possible procedures next week
DNR code status noted
Total time spent today was 52 minutes in preparing to see the patient, seeing the patient and coordination of care. This included review of recent laboratory evaluations, cardiact testing, imaging studies, primary care rtecords, specialty
consultations, hospital records, as well as personally interviewing and examining the patient, which included discussion of their tests, review/ordering medications, and communicating with other healthcare professionals and also treatment planning
as well as counseling.
Progress Note - Slab Grinder
Subjective
Date of Service: December 31, 2024
no CP, SOB or palps
Objective
Labs:
12/31/24 07:16
12/31/24 07:16
Labs
Hgb 9.5 g/dL (12.0-16.0) L 12/31/24 07:16
Hct 28.4 % (37.0-47.0) L 12/31/24 07:16
Plt Count 209 10^3/uL (130-400) 12/31/24 07:16
APTT 72.1 Sec (23.4-35.0) H 12/31/24 07:16
Sodium 135 mmol/L (135-145) 12/31/24 07:16
Potassium 4.2 mmol/L (3.5-5.1) 12/31/24 07:16
BUN 14 mg/dl (7-17) 12/31/24 07:16
Creatinine 0.7 mg/dL (0.6-1.0) 12/31/24 07:16
Glucose 89 mg/dl (70-99) 12/31/24 07:16
Troponins
12/29/24 12/29/24 12/29/24
12:55 16:45 23:21
Troponin I 2.640 H* 2.710 H* 2.030 H* D
12/30/24
05:36
Troponin I 1.690 H*
Vital Signs and I&O:
Vital Signs
Temp Pulse Resp BP Pulse Ox
98.3 F 69 18 133/64 95
12/31/24 07:20 12/31/24 07:20 12/31/24 07:20 12/31/24 07:20 12/31/24 07:20
Vital Signs
Temp Pulse Resp BP Pulse Ox
98.3 F 69 18 133/64 95
12/31/24 07:20 12/31/24 07:20 12/31/24 07:20 12/31/24 07:20 12/31/24 07:20
Intake & Output
12/29/24 12/30/24 12/31/24 01/01/25
06:59 06:59 06:59 06:59
Intake Total 1140 / 1140 96 / 296 200 / 200
Output Total 320 / 320
Balance 1140 / 1140 -224 / -24 200 / 200
Physical Exam
Physical Exam
GEN: No distress, awake, alert, oriented x3. Sitting in chair
HEENT: supple, anicteric, mmm, EOMI
LUNGS: CTA bilaterally, no wheezes/rales
CV: Reg, S1/S2, 1/6 AHSM, no rubs
ABD: soft, BS+, NT/ND
EXT: No cyanosis, clubbing, edema
NEURO: Gross non-focal
SKIN: warm, pink, dry. No rash
[2024-12-31] MEDS: FLUSH (NSS) 1 FLUSH IV (09:33)
[2024-12-31] MEDS: PLAVIX 75 MG PO (09:33)
[2024-12-31] MEDS: PROTONIX 40 MG PO ×2 (09:33→20:04)
[2024-12-31] MEDS: LOW STRENGTH ASPIRIN 81 MG PO (09:33)
[2024-12-31] MEDS: LIPITOR 10 MG PO (09:33)
[2024-12-31 11:23] VITALS: BP 112/70
--- NOTE | 2024-12-31 14:57 | PTCARENOTE ---
Pt up to remove telemetry today per protocol. Dr. Terrazas would like the telemetry continued.
[2024-12-31 15:06] LABS: APTT 97.1 Sec (23.4-35.0)
[2024-12-31 15:52] VITALS: BP 131/74
[2024-12-31 19:16] VITALS: BP 143/76
[2024-12-31] MEDS: NEURONTIN 100 MG PO (22:00)
[2024-12-31 22:57] LABS: APTT 44.6 Sec (23.4-35.0)
[2024-12-31 23:47] VITALS: BP 130/81
[2025-01-01 03:19] VITALS: BP 137/70
[2025-01-01] MEDS: HEPARIN 25000 UNITS/250 ML IV (04:21)
[2025-01-01 06:00] VITALS: BMI 22.9
[2025-01-01 06:17] LABS: APTT > 200 Sec (23.4-35.0)
[2025-01-01 06:51] LABS: Blood Urea Nitrogen 13 mg/dl (7-17); Calcium 9.1 mg/dl (8.4-10.2); Carbon Dioxide 27 mmol/L (22-30); Chloride 99 mmol/L (98-107); Estimated Creatinine Clearance 50 ml/min; Glucose 94 mg/dl (70-99); Sodium 135 mmol/L (135-145); eGFR > 60.00
[2025-01-01 07:55] VITALS: BP 134/54
[2025-01-01 08:03] LABS: Hematocrit 39.1 % (37.0-47.0); Mean Corp Hgb Conc. 33.2 g/dL (33.0-37.0); Mean Corpuscular Volume 93.1 fL (81.0-99.0); Mean Platelet Volume 9.8 fL (7.4-10.4); Platelet Count 222 10^3/uL (130-400); Red Blood Cell Count 4.22 10^6/uL (4.20-5.40); Red Cell Dist. Width 12.8 % (11.5-14.5); White Blood Cell Count 5.2 10^3/uL (4.8-10.8)
[2025-01-01] MEDS: PROTONIX 40 MG PO ×2 (08:30→20:01)
[2025-01-01] MEDS: FLUSH (NSS) 1 FLUSH IV (08:30)
[2025-01-01] MEDS: PLAVIX 75 MG PO (08:31)
[2025-01-01] MEDS: LIPITOR 10 MG PO (08:31)
[2025-01-01] MEDS: LOW STRENGTH ASPIRIN 81 MG PO (08:31)
--- NOTE | 2025-01-01 09:08 | W.PN.HOSP.TC ---
Today's Communication/Plan
-
Heparin drip. Plan for possible cardiac cath next week
Assessment / Plan
Assessment / Plan
Physical exam:
General: Well Developed, Well Nourished and No Apparent Distress
HEENT: Normocephalic, Atraumatic and Moist Mucous Membranes
Respiratory: Clear to Auscultation; Negative Wheezes, Rales or Rhonchi
Cardiac: Regular Rhythm and S1/S2
GI: Soft, Nontender and Nondistended
Musculoskeletal: No Clubbing, No Cyanosis and No Edema
Neuro: Awake, Alert and Oriented
Psych: Calm
A/P:
Unresponsive episode:
Cardiac monitoring
Checking orthostatic
Echocardiogram EF 50% and new wall motion abnormalities with mid to distal septum hypokinetic with apical hypokinesis as well. Moderate tricuspid regurgitation. Estimated PA 35 to 40 mmHg
Discussed with son at bedside prior
Elevated troponin:
On heparin drip
On dual antiplatelet therapy (aspirin and Plavix) and statin
Discussed with cardiology today and challenging with heparin drip and monitor over the weekend to see if candidate for cardiac cath after the weekend and also discussed with GI who will follow-up as well
Anemia:
Chronic anemia, rule out acute blood loss
Hemoglobin 13 today
History of ischemic versus infectious colitis back in 2023 and recent hematemesis felt to be Natalya-Solano back in October of this year
GI on consult
Continue oral PPI twice daily
Asymptomatic bacteriuria:
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
No need to treat
Hypertension/hypotension:
Holding antihypertensive and diuretics
Hyperlipidemia:
Continue statin
Permanent atrial fibrillation:
Holding rate controlled
On heparin drip and holding Xarelto
DVT prophylaxis:
Heparin gtt
CODE STATUS:
DNR
Total time spent on today's encounter was 52 minutes which included time spent in counseling the patient/family regarding diagnosis and treatment plan as listed above, goals of care, and symptom management. Case was discussed with nursing staff,
specialists, and care coordinators/case management. All labs and imaging personally reviewed by me. Remainder the time spent in detailed review of previous records, lab data, imaging, and other medical provider documentation.
Anticipated Discharge: 24 - 48 hours
Subjective/Interval History
-
Date of Service: January 01, 2025
No chest pain or shortness of breath. No signs of bleeding.
Objective Data
-
Labs:
Laboratory Results
12/31/24 01/01/25 01/01/25
21:44 05:13 07:53
WBC 5.2
Hgb 13.0 D
Hct 39.1
Plt Count 222
APTT 44.6 H > 200 H*
Sodium 135
Potassium 4.0
Chloride 99
Carbon Dioxide 27
BUN 13
Creatinine 0.7
Glucose 94
Calcium 9.1
01/01/25
14:20
WBC
Hgb
Hct
Plt Count
APTT Pending
Sodium
Potassium
Chloride
Carbon Dioxide
BUN
Creatinine
Glucose
Calcium
Vital Signs:
Vital Signs
Temp Pulse Resp BP Pulse Ox
97.6 F 62 18 134/54 99
01/01/25 07:55 01/01/25 07:55 01/01/25 07:55 01/01/25 07:55 01/01/25 07:55
I&O
12/31/24 01/01/25 01/02/25
06:59 06:59 06:59
Intake Total 96 / 296 1200 / 1200
Output Total 320 / 320
Balance -224 / -24 1200 / 1200
[2025-01-01 11:39] VITALS: BP 139/74
--- NOTE | 2025-01-01 12:49 | W.PN.CARDCBS ---
Today's Communication / Plan
-
Continue heparin in the setting of non-ST segment elevation myocardial infarction as well as atrial fibrillation related thromboembolic risk reduction
Follow hemoglobin and consider coronary angiography in the morning
Impression / Plan
-
Primary Dbas: Dr. De La Rosa
Assessment:
Presentation with unresponsive episode
Elevated troponin
Chronic anemia
Chronic hyponatremia
Suspected food poisoning with coffee-ground emesis/hematemesis felt to be secondary to Natalya-Solano tear 10/2024
Fall with L2 endplate fracture status post kyphoplasty/vertebroplasty 11/18/2024
Permanent atrial fibrillation
Chronic anticoagulation with Xarelto
Hypertension
Dyslipidemia
Osteoarthritis
History of fall/injury 2015 resulting in facial asymmetry, speech difficulties, and teeth extraction in 2019
History of diverticulitis
History of angioedema on ARB
Lexiscan nuclear stress test 02/2019: Mildly reversible defect in mid anteroseptal, mid inferoseptal, apical anterior, apical septal, apex segments consistent with ischemia versus STA, EF 63%
ECHO 06/27/2021: EF 55 to 60%, mild concentric LVH, MAC, mild MR, moderate TR, PAP 30 mmHg
ECHO 12/29/2024: EF 50%, mid to distal septum hypokinetic, apical hypokinesis, mild to moderate LVH, aortic sclerosis, moderate TR, PAP 35 to 40 mmHg
Plan:
Patient presented to [facility] due to unresponsive episode while working with physical therapy at [facility] 12/29.
No clear etiology. Orthostatic vital signs were negative, at least when assessed during hospital stay. Head CT without acute abnormalities
She has atrial fibrillation with rates that are mildly bradycardic at time but would not result in loss of consciousness.
She does have elevated troponin and new wall motion abnormality on echocardiogram
trop peaked at 2.7.
echo with slight reduction in EF to 50% and apical/septal hypokinesis, new compared to prior echo from 2020
last ischemic eval from 2018 as above
Anemic and recent hematemesis, presumed from Natalya-Solano tear from N/V on xarelto but no evaluation (ie EGD) during that admission.
Discussed plan with GI. Continue PPI, heme test stool pending. Xarelto on hold, now on IV heparin and aspirin and loaded with Plavix and now on Plavix 75 mg daily
Monitor hemoglobin over the weekend and if Hgb stable can consider left heart catheterization next week (may need 'triples' with DAPT + Xarelto).
Hemoglobin is increased overnight from 9.5-13 overnight ? No blood was given
Repeat hemoglobin in the morning and if remains stable plan for coronary angiography in the morning.
Note, I did have discussion with the patient the option of medical therapy versus invasive therapy for her non-STEMI and she prefers a more aggressive/invasive therapy
LDL 30. Continue lipitor 10mg QPM.
No beta-jeremy at present due to to concerns of bradycardia arrhythmia playing a role in her altered mental status/acute unresponsiveness.
Atrial fibrillation with controlled heart rates/bradycardia
We have discontinued diltiazem 120 mg daily over concern that bradycardia could have played a role in her unresponsive episode
Monitor on telemetry
Previously on Xarelto anticoagulation now on IV heparin for possible procedures next week, eventually resume DOAC
DNR code status noted
Total time spent today was 50 minutes in preparing to see the patient, seeing the patient and coordination of care. This included review of recent laboratory evaluations, cardiact testing, imaging studies, primary care rtecords, specialty
consultations, hospital records, as well as personally interviewing and examining the patient, which included discussion of their tests, review/ordering medications, and communicating with other healthcare professionals and also treatment planning
as well as counseling.
Progress Note - Dbas
Subjective
Date of Service: January 01, 2025
No chest pain shortness of breath or palpitations overnight
Objective
Labs:
01/01/25 07:53
01/01/25 05:13
Labs
Hgb 13.0 g/dL (12.0-16.0) D 01/01/25 07:53
Hct 39.1 % (37.0-47.0) 01/01/25 07:53
Plt Count 222 10^3/uL (130-400) 01/01/25 07:53
APTT > 200 Sec (23.4-35.0) H* 01/01/25 05:13
Sodium 135 mmol/L (135-145) 01/01/25 05:13
Potassium 4.0 mmol/L (3.5-5.1) 01/01/25 05:13
BUN 13 mg/dl (7-17) 01/01/25 05:13
Creatinine 0.7 mg/dL (0.6-1.0) 01/01/25 05:13
Glucose 94 mg/dl (70-99) 01/01/25 05:13
Troponins
12/29/24 12/29/24 12/29/24
12:55 16:45 23:21
Troponin I 2.640 H* 2.710 H* 2.030 H* D
12/30/24
05:36
Troponin I 1.690 H*
Vital Signs and I&O:
Vital Signs
Temp Pulse Resp BP Pulse Ox
98.1 F 56 16 139/74 99
01/01/25 11:39 01/01/25 11:39 01/01/25 11:39 01/01/25 11:39 01/01/25 11:39
Vital Signs
Temp Pulse Resp BP Pulse Ox
98.1 F 56 16 139/74 99
01/01/25 11:39 01/01/25 11:39 01/01/25 11:39 01/01/25 11:39 01/01/25 11:39
Intake & Output
12/30/24 12/31/24 01/01/25 01/02/25
06:59 06:59 06:59 06:59
Intake Total 1140 / 1140 96 / 296 1200 / 1200
Output Total 320 / 320
Balance 1140 / 1140 -224 / -24 1200 / 1200
Physical Exam
Physical Exam
Elderly woman no distress appears comfortable
Irregular rate and rhythm normal S1 and S2 no S3 no S4 degree 1/6 apical holosystolic murmur no rubs
Lungs are clear to auscultation bilaterally
Extremities with trace pedal edema bilateral
[2025-01-01 15:03] LABS: APTT 104.5 Sec (23.4-35.0)
[2025-01-01 15:55] VITALS: BP 137/69
[2025-01-01 19:33] VITALS: BP 127/62
[2025-01-01 21:09] LABS: APTT 86.8 Sec (23.4-35.0)
[2025-01-01] MEDS: NEURONTIN 100 MG PO (21:44)
[2025-01-01 23:40] VITALS: BP 125/77
[2025-01-02] VITALS (13 sets, daily range): BP systolic 107–156; BP diastolic 50–92; BMI 22.8
[2025-01-02] MEDS: LOW STRENGTH ASPIRIN 81 MG PO (08:35)
[2025-01-02] MEDS: PROTONIX 40 MG PO ×2 (08:35→20:23)
[2025-01-02] MEDS: PLAVIX 75 MG PO (08:35)
[2025-01-02] MEDS: LIPITOR 10 MG PO (08:35)
[2025-01-02 09:29] LABS: APTT 98.1 Sec (23.4-35.0)
[2025-01-02 09:31] LABS: Hemoglobin 10.1 g/dL (12.0-16.0); Mean Corp Hgb Conc. 33.7 g/dL (33.0-37.0); Mean Corpuscular Hgb 28.2 pg (27.0-31.0); Mean Corpuscular Volume 83.8 fL (81.0-99.0); Mean Platelet Volume 8.9 fL (7.4-10.4); Platelet Count 211 10^3/uL (130-400); Red Blood Cell Count 3.58 10^6/uL (4.20-5.40); Red Cell Dist. Width 18.2 % (11.5-14.5); White Blood Cell Count 4.4 10^3/uL (4.8-10.8)
[2025-01-02] MEDS: HEPARIN 25000 UNITS/250 ML IV (09:42)
[2025-01-02 09:59] LABS: Blood Urea Nitrogen 13 mg/dl (7-17); Calcium 9.1 mg/dl (8.4-10.2); Carbon Dioxide 27 mmol/L (22-30); Chloride 100 mmol/L (98-107); Estimated Creatinine Clearance 50 ml/min; Glucose 97 mg/dl (70-99); Potassium 4.2 mmol/L (3.5-5.1); Sodium 134 mmol/L (135-145); eGFR > 60.00
--- NOTE | 2025-01-02 15:07 | CM ---
Chart reviewed. Therapy rec skilled rehab at d/c. Patient lives at the [facility] at [facility]. [facility] able to accept for skilled rehab when stable
Patient transferred to IVU today
Plan: [facility] SN[facility] when stable
--- NOTE | 2025-01-02 15:14 | PTOTSP ---
Reviewed chart and found pt had gone to lab rep and transferred to IVU. PT orders were not continued upon transfer at this time. Will hold PT today and await updated PT orders.
--- NOTE | 2025-01-02 15:30 | W.PN.HOSP.TC ---
Today's Communication/Plan
-
Continue with current treatments
Await further cardiology recommendations
Assessment / Plan
Assessment / Plan
A/P:
Unresponsive episode:
Cardiac monitoring
Echocardiogram EF 50% and new wall motion abnormalities with mid to distal septum hypokinetic with apical hypokinesis as well. Moderate tricuspid regurgitation. Estimated PA 35 to 40 mmHg
Discussed with son at bedside prior
Elevated troponin: Secondary to non-ST elevation ID
Was on heparin drip
On dual antiplatelet therapy (aspirin and Plavix) and statin
S/p cardiac cath today. Await further recommendations from cardiology. Resume anticoagulation with Xarelto if okay from cardiology.
Anemia:
Chronic anemia
Hemoglobin 10.1 today stable
History of ischemic versus infectious colitis back in 2023 and recent hematemesis felt to be Natalya-Solano back in October of this year
GI consult noted
Continue oral PPI twice daily
No evidence of active GI bleed
Asymptomatic bacteriuria:
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
No need to treat
Hypertension/hypotension:
Holding antihypertensive and diuretics
Hyperlipidemia:
Continue statin
Permanent atrial fibrillation:
Holding rate controlled
Resume Xarelto if okay from cardiology standpoint
DVT prophylaxis:
Heparin gtt
CODE STATUS:
DNR
Anticipated Discharge: > 48 hours
Subjective/Interval History
-
Date of Service: January 02, 2025
S/p cardiac cath through right radial artery this afternoon. Official report pending. I am told that she has triple-vessel disease.
Patient currently denies any chest pain or shortness of breath. No nausea vomiting.
Objective Data
-
Labs:
Laboratory Results
01/02/25
08:27
WBC 4.4 L
Hgb 10.1 L D
Hct 30.0 L
Plt Count 211
APTT 98.1 H
Sodium 134 L
Potassium 4.2
Chloride 100
Carbon Dioxide 27
BUN 13
Creatinine 0.7
Glucose 97
Calcium 9.1
Vital Signs:
Vital Signs
Temp Pulse Resp BP Pulse Ox
97.9 F 67 18 120/73 98
01/02/25 14:44 01/02/25 11:26 01/02/25 14:44 01/02/25 11:26 01/02/25 14:44
I&O
01/01/25 01/02/25 01/03/25
06:59 06:59 06:59
Intake Total 1200 / 1200 828 / 828
Balance 1200 / 1200 828 / 828
Physical Exam
-
General: Comfortable
Respiratory: Clear to Auscultation and Non Labored Respirations; Negative Accessory Resp Muscle Use
Cardiac: S1/S2 and Irregular Rhythm; Negative Tachycardic
GI: Soft
Neuro: AO x 3
Data Reviewed
-
Labs: Labs Reviewed by me
--- NOTE | 2025-01-02 16:06 | ITS.CL.CATH ---
Glass Cut Off Tender - Catheterization
Cardiac Catheterization
Procedure Report:
LEFT HEART CATHETERIZATION
Date of Procedure: January 02, 2025
Referring: Parminder Callahan MD
PROCEDURES:
1. Left heart catheterization, coronary angiogram.
2. Ultrasound-guided access.
3. Moderate sedation.
INDICATION: NSTEMI
ACCESS: Right radial artery, 6 [place] sheath, under ultrasound guidance.
Ultrasound was utilized for vascular access. The radial artery was visualized under ultrasound, and the vessel was patent and pulsatile. An image was stored permanently in the patient's medical record. Under direct ultrasound guidance, a 6 [place]
sheath was inserted into the artery using a micropuncture kit through a modified Seldinger technique.
HEMODYNAMICS : (mmHg)
AO (s/d) : 106/61
LV (s/d) : 105/3
LVEDP : 8
CORONARY FINDINGS: Heavily calcified coronary arteries.
DOMINANCE: Right
LEFT MAIN: The left main artery is a large-caliber vessel which gives rise to the left anterior descending artery and the left circumflex artery. There is mild diffuse atherosclerotic plaque
LEFT ANTERIOR DESCENDING: The left anterior descending artery is a medium caliber vessel which gives rise to 1 small caliber D1 and a medium caliber D2. Proximal LAD is heavily calcified with mild diffuse atherosclerotic plaque. Mid LAD has a
tubular to 90% stenosis with an aneurysmal portion just distal to the takeoff of D2. D2 has diffuse up to 80 to 90% stenosis in the proximal to midportion.
CIRCUMFLEX: The left circumflex artery is a medium caliber vessel which gives rise to 2 obtuse marginal branches which are moderately tortuous. Proximal left circumflex has 50% stenosis. Mid left circumflex has diffuse up to 8085% stenosis just
proximal to OM1 takeoff. OM1 has eccentric 70% ostial stenosis and diffuse 50 to 60% stenosis in the proximal portion. Distal left circumflex into OM 2 has diffuse 60 to 70% stenosis.
RIGHT CORONARY ARTERY: Right coronary artery is a medium to large caliber, dominant vessel which is heavily calcified giving rise to the right posterior descending artery and the right posterolateral system. Proximal RCA has diffuse up to 50%
stenosis with ectasia noted in the midportion. Distal RCA has moderate degree of tortuosity with eccentric diffuse up to 50 to 60% stenosis. Ostial RPDA has 60% stenosis.
SEDATION: 41 minutes of procedural sedation was utilized. An independent medical device engineer was present to assist with and help manage the patient's level of consciousness and physiologic status.
RADIATION SUMMARY: Fluoro Time (min): 5.5, Dose (mGy): 298.48, DAP (Gy.cm2) : 26.69
Closure Device: Vascular band over right radial artery, 10 cc of air.
CONCLUSIONS
1. Significant multivessel coronary artery disease as noted above.
2. Low to normal LVEDP
RECOMMENDATIONS
1. At 89 years of age with no complaints of angina, plan for a detailed discussion with patient and family to discuss treatment options including medical therapy versus consideration for PCI of mid LAD along with medications.
2. Wean radial band per protocol.
3. Aggressive management of cardiovascular risk factors.
4. Referral for outpatient cardiac rehab.
Copy to: Parminder Callahan MD
Any Tavarez MD, [facility], [facility]
--- NOTE | 2025-01-02 17:53 | PTCARENOTE ---
received pt post cath. right radial band intact. pt is afib on the monitor, hr in the 60s, vss. pt offers no complaints at this time. right radial band removed per protocol, see documentation. pt son at bedside visiting with patient. pt and son
educated on plan of care and both verbalized understanding. nando rodriguez called for report on pt, but let them know pt would not be d/c today. bed alarm on pt. call dos santos within reach.
--- NOTE | 2025-01-02 21:00 | PTCARENOTE ---
Received patient at change of shift. A&ox3, little forgetful. Vitals stable. Right radial site clean, dry, and intact. Gauze and Tegaderm in place. No ecchymosis or swelling, soft to touch. Protective foams on heels. Discussed getting OOB-- patient
refused. Said she 'has had a rough couple of days and would like to just stay in bed tonight.' Discussed plan of care. Patient verbalized understanding. Call dos santos within reach.
[2025-01-02] MEDS: XARELTO 20 MG PO (22:08)
[2025-01-02] MEDS: NEURONTIN 100 MG PO (22:08)
--- NOTE | 2025-01-02 22:23 | W.PN.UPDATE ---
Update Note
Progress Note Update
Interventional Cardiology Update note
Discussed cath findings extensively with patient and son at bedside in room. We discussed calcified coronary arteries with disease involving RCA, LCx/OMS, LAD and D1. LAD is likely culprit for WMA and mild trop however in absence of any anginal
symptoms, we discussed that PCI may not add additional benefits overs meds only for now unless pt were to become symptomatic down the road. 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
in that area. She clarified that her presenting complaint was weakness/fatigue and presyncope without true LOC and never had any CP. After discussing all options, patient and son strongly leaning towards medical therapy only betty given pt is 89,
thin/frail without angina.
Plan to resume Xarelto tonight, medically optimize, focus on aggressive risk factor modificaton, LDL < 55, OOB to chair.ambulate tomorrow, PT, OT and start discharge planning.
Discussed with nursing.
Any Tavarez MD, FACC, [facility] [place]
Total time spent: 27mins
[2025-01-03] VITALS (12 sets, daily range): BP systolic 95–128; BP diastolic 56–70; PULSE 61–92; O2SAT 98
[2025-01-03 04:50] LABS: Hematocrit 28.9 % (37.0-47.0); Hemoglobin 9.8 g/dL (12.0-16.0); Mean Corp Hgb Conc. 33.9 g/dL (33.0-37.0); Mean Corpuscular Hgb 28.5 pg (27.0-31.0); Mean Platelet Volume 8.9 fL (7.4-10.4); Platelet Count 215 10^3/uL (130-400); Red Blood Cell Count 3.44 10^6/uL (4.20-5.40); Red Cell Dist. Width 18.3 % (11.5-14.5)
--- NOTE | 2025-01-03 08:54 | W.PN.CARDCBS ---
Addendum entered and electronically signed by Any Tavarez MD 01/03/25 16:51:
I saw and examined the patient.
The Key Account Executive's note was reviewed and I agree with the note.
Comment: Overall patient is doing well and does not offer any significant complaints. She worked with PT earlier this morning and felt quite deconditioned and unsteady on her feet. No chest discomfort or shortness of breath.
Vital signs and lab work reviewed. Borderline blood pressures noted. Hemoglobin has been stable.
On exam patient is a frail elderly female, thin, no acute distress, awake, alert and oriented x 3, irregularly irregular rhythm, normal S1 and S2, no murmurs, rubs or gallops, lungs are clear to auscultation bilaterally, right radial access site
with dressing in place which is clean, dry and intact, abdomen is soft, nontender, nondistended with active bowel sounds, warm extremities with trace edema.
Recommendations:
1. Extensive discussion was had with patient and family yesterday in regards to her underlying coronary artery disease and presentation with NSTEMI albeit in setting of no anginal symptoms but rather presyncope. Echocardiogram noted mid to apical
septal wall motion abnormality with overall preserved LV systolic function with LVEF of 50%.
2. After weighing the risk and benefits especially with no anginal symptoms, in a shared decision-making fashion, plan is to medically manage her underlying coronary artery disease.
3. Given borderline blood pressures her home diltiazem will be continued to be held. We will trial low-dose Norvasc if her blood pressures allow as a potential antianginal therapy in the setting of CAD. We are avoiding beta-blockers given
presentation of presyncope and prior history of bradycardia.
4. Xarelto was resumed last night with plan to continue Plavix in the setting of ACS. We will discontinue aspirin at this point. We will continue Lipitor to optimize her lipids with LDL goal less than 55.
5. PT/OT evaluation to allow for discharge planning, anticipate discharge in the next 24 to 48 hours.
6. Outpatient cardiology follow-up will be set up.
Any Tavarez MD, FAC, [facility]
Original Note:
Today's Communication / Plan
-
plan for norvasc 2.5mg daily upon DC
continue xarelto, plavix, lipitor
CBC in 1 week upon DC
will arrange OP cardiac follow up
Impression / Plan
-
Primary Wind Turbine Technician: Dr. De La Rosa
Assessment:
Presentation with unresponsive episode
Elevated troponin
Chronic anemia
Chronic hyponatremia
Suspected food poisoning with coffee-ground emesis/hematemesis felt to be secondary to Natalya-Solano tear 10/2024
Fall with L2 endplate fracture status post kyphoplasty/vertebroplasty 11/18/2024
Permanent atrial fibrillation
Chronic anticoagulation with Xarelto
Hypertension
Dyslipidemia
Osteoarthritis
History of fall/injury 2015 resulting in facial asymmetry, speech difficulties, and teeth extraction in 2019
History of diverticulitis
History of angioedema on ARB
Lexiscan nuclear stress test 02/2019: Mildly reversible defect in mid anteroseptal, mid inferoseptal, apical anterior, apical septal, apex segments consistent with ischemia versus STA, EF 63%
ECHO 06/27/2021: EF 55 to 60%, mild concentric LVH, MAC, mild MR, moderate TR, PAP 30 mmHg
ECHO 12/29/2024: EF 50%, mid to distal septum hypokinetic, apical hypokinesis, mild to moderate LVH, aortic sclerosis, moderate TR, PAP 35 to 40 mmHg
Plan:
-She presented with unresponsive episode while working with physical therapy at [facility]. Head CT negative for acute abnormality
-Troponin was elevated, peak of 2.7, and echo with apical/septal hypokinesis and slight reduction in EF to 50% compared to prior
-She underwent cardiac catheterization 01/02 with multivessel CAD. After discussion with patient and family, plan for medical management. Of note she also had recent admission for anemia and hematemesis presumed secondary to Natalya-Solano tear from
nausea vomiting on Xarelto, but did not have evaluation (i.e. EGD) during that admission.
-Continue Xarelto for permanent atrial fibrillation and Plavix. Aspirin stopped. hgb stable at 9.8
-Continue Lipitor
-She has history of intolerance to beta-jeremy. plan was to resume OP diltiazem for DC, however patient noted to be relatively hypotensive and bradycardic on review of tele. will transition to low dose norvasc 2.5mg daily for DC.
-DNR code status noted
-will arrange OP cardiac follow up
-CBC in 1 week upon DC
Progress Note - Wind Turbine Technician
Subjective
Date of Service: January 03, 2025
Resting comfortably.
Objective
Labs:
01/03/25 04:07
01/02/25 08:27
Labs
Hgb 9.8 g/dL (12.0-16.0) L 01/03/25 04:07
Hct 28.9 % (37.0-47.0) L 01/03/25 04:07
Plt Count 215 10^3/uL (130-400) 01/03/25 04:07
APTT Cancelled 01/03/25 06:00
Sodium 134 mmol/L (135-145) L 01/02/25 08:27
Potassium 4.2 mmol/L (3.5-5.1) 01/02/25 08:27
BUN 13 mg/dl (7-17) 01/02/25 08:27
Creatinine 0.7 mg/dL (0.6-1.0) 01/02/25 08:27
Glucose 97 mg/dl (70-99) 01/02/25 08:27
Vital Signs and I&O:
Vital Signs
Temp Pulse Resp BP Pulse Ox
98.6 F 77 18 120/67 95
01/03/25 06:53 01/03/25 04:30 01/03/25 06:53 01/03/25 03:57 01/03/25 06:53
Vital Signs
Temp Pulse Resp BP Pulse Ox
98.6 F 77 18 120/67 95
01/03/25 06:53 01/03/25 04:30 01/03/25 06:53 01/03/25 03:57 01/03/25 06:53
Intake & Output
01/01/25 01/02/25 01/03/25 01/04/25
07:59 07:59 07:59 07:59
Intake Total 1000 / 1000 828 / 828 480 / 480
Balance 1000 / 1000 828 / 828 480 / 480
Physical Exam
Physical Exam
GEN: No distress, resting comfortably
HEENT: supple, mmm
LUNGS: no audible wheezes
CV: rate controlled afib on tele
ABD: soft, BS+, NT/ND
EXT: No cyanosis, clubbing, edema
NEURO: Gross non-focal
SKIN: Warm, pink, dry. No rash
[2025-01-03] MEDS: CARDIZEM CD 120 MG PO (09:09)
[2025-01-03] MEDS: PROTONIX 40 MG PO (09:09)
[2025-01-03] MEDS: PLAVIX 75 MG PO (09:10)
[2025-01-03] MEDS: LIPITOR 10 MG PO (09:10)
--- NOTE | 2025-01-03 09:40 | W.PN.HOSP.TC ---
Today's Communication/Plan
-
DC
Assessment / Plan
Assessment / Plan
A/P:
Unresponsive episode:
Cardiac monitoring without significant events
Echocardiogram EF 50% and new wall motion abnormalities with mid to distal septum hypokinetic with apical hypokinesis as well. Moderate tricuspid regurgitation. Estimated PA 35 to 40 mmHg
Elevated troponin: Secondary to non-ST elevation RI
S/p cardiac catheterization. Report on recommendation by cardiology noted. She has multivessel disease and was recommended medical therapy. Currently on Plavix. On Xarelto. On statin and LDL is 30.
Clinically without heart failure. LVEDP normal to low.
Patient was on diuretics as an outpatient -to resume on discharge prn weight gain
Permanent atrial fibrillation:
Continue with rate control medication per cardiology. On Cardizem.
Back on Xarelto.
Anemia:
Chronic anemia
Hemoglobin stable
History of ischemic versus infectious colitis back in 2023 and recent hematemesis felt to be Natalya-Solano back in October of this year
GI consult noted
Continue oral PPI twice daily
No evidence of active GI bleed
Asymptomatic bacteriuria:
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
No need to treat
Hypertension/hypotension:
Current on cardizem .cw it with parameters
Hyperlipidemia:
Continue statin
DVT prophylaxis:
Heparin gtt
CODE STATUS:
DNR
PT and OT to reevaluate and depending we will discharge back to rehab.
Cardiology mentioned about stability for dc from their standpoint yesterday.
Medically as well stable for discharge.
Anticipated Discharge: Today
Subjective/Interval History
-
Date of Service: January 03, 2025
Patient denies any chest pain or shortness of breath. Denies any dizziness.
Prior coming to the hospital she was at [facility] rehab. She had sustained a lumbar compression fracture but currently pain-free. She also has seen progress with the PT at the facility.
Objective Data
-
Labs:
Laboratory Results
01/03/25 01/03/25
04:07 06:00
WBC 6.0
Hgb 9.8 L
Hct 28.9 L
Plt Count 215
APTT Cancelled
Vital Signs:
Vital Signs
Temp Pulse Resp BP Pulse Ox
98.6 F 65 18 97/56 95
01/03/25 06:53 01/03/25 09:09 01/03/25 06:53 01/03/25 09:09 01/03/25 06:53
I&O
01/02/25 01/03/25 01/04/25
06:59 06:59 06:59
Intake Total 828 / 828 480 / 480
Balance 828 / 828 480 / 480
Review of Systems
-
Constitutional: Denies Fever or Chills
EENT: Denies Sore Throat
Abdomen/GI: Denies Abdominal Pain, Nausea or Vomiting
Physical Exam
-
General: No Apparent Distress
Respiratory: Clear to Auscultation and Non Labored Respirations; Negative Accessory Resp Muscle Use
Cardiac: S1/S2 and Irregular Rhythm; Negative Tachycardic
GI: Soft
Neuro: AO x 3
Psych: Calm; Negative Confused
Data Reviewed
-
Labs: Labs Reviewed by me
--- NOTE | 2025-01-03 10:16 | PTCARENOTE ---
received patient this am in bed, asked patient if she would like to get OOB this am, she told me she couldnot walk. I continued to ask questions as to why?, and patient is afraid to walk because she doesnot want to fall. PT/OT consulted today.
patient was inc. of urine, patient stated that she cannot tell when she needs to void, patient was washed and purewick in place. right radial dsg. D/I, distal pulse palpable. monitor shows Afib, VSS. bed alarm remains on.
--- NOTE | 2025-01-03 15:05 | CM ---
Addendum entered by Hiral Granado 01/03/25 15:50:
Unit Sec. made ambulance arrangements [facility] for a pick-up time of 5:30- 6:00 p.m. Telephone call to her son Tim. Left message. TT [facility] admission with transfer date and time. The discharge plan is to go to [facility] when medically stable.
Original Note:
Reviewed chart. Mrs. Lawrence was transferred to IVU. Met with Mrs. Lawrence to review discharge plans. Prior to admission she was at [facility] SNF/ Rehab. She states she resides at [facility] [place]. She states she has
been there for six years. She states she is planning on going to [facility] for SNF/Rehab. Telephone call to [facility] Admission to confirm ability to accept. The report phone number is ([phone] And the fax number is ([phone]).
Updated attending physician and R.N. Medical work-up in progress. The discharge plan is to go to [facility] when medically stable.
[2025-01-03] MEDS: XARELTO 20 MG PO (17:07)
--- NOTE | 2025-01-03 18:35 | PTCARENOTE ---
patient is D/C to [facility], report was called to Antonia CORMIER [phone]. monitor D/C'd, INT x 2 D/C'd, personal belongings packed with patient. patient is dressed. 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 D/C by ambulance to [facility].
chart and appropriate papers sent with patient.
== END 2025-01-03 18:41 | DRG 281 ==
LOC: IVU 15:27
PROVIDERS: Hospitalist; Internal Medicine Interventional Cardiology; Physician Assistant; Physician Assistant Medical; ADMITTING PHYSICIAN Student in an Organized Health Care Education/Training Program; ATTENDING PHYSICIAN Internal Medicine; CONSULT PHYSICIAN Internal Medicine; EMERGENCY PHYSICIAN Emergency Medicine; FAMILY PHYSICIAN Family Medicine; OTHER PHYSICIAN Internal Medicine Cardiovascular Disease
PROC: 4A023N7 Measurement of Cardiac Sampling and Pressure, Left Heart, Percutaneous Approach (ICD-10-PCS; 2025-01-02)
PROC: B2111ZZ Fluoroscopy of Multiple Coronary Arteries using Low Osmolar Contrast (ICD-10-PCS; 2025-01-02)
DX: I21.4 Non-ST elevation (NSTEMI) myocardial infarction (principal); E87.1 Hypo-osmolality and hyponatremia; I48.21 Permanent atrial fibrillation; Q61.9 Cystic kidney disease, unspecified; I10 Essential (primary) hypertension; K21.9 Gastro-esophageal reflux disease without esophagitis; H91.90 Unspecified hearing loss, unspecified ear; K64.9 Unspecified hemorrhoids; R41.82 Altered mental status, unspecified; D64.9 Anemia, unspecified; E78.00 Pure hypercholesterolemia, unspecified; I25.10 Atherosclerotic heart disease of native coronary artery without angina pectoris; I07.1 Rheumatic tricuspid insufficiency; R82.71 Bacteriuria; I70.0 Atherosclerosis of aorta; M19.90 Unspecified osteoarthritis, unspecified site; I71.40 Abdominal aortic aneurysm, without rupture, unspecified; Z66 Do not resuscitate; Z60.2 Problems related to living alone; I25.2 Old myocardial infarction; Z79.01 Long term (current) use of anticoagulants; Z82.3 Family history of stroke; Z88.8 Allergy status to other drugs, medicaments and biological substances; Z85.828 Personal history of other malignant neoplasm of skin; Z87.19 Personal history of other diseases of the digestive system; Z91.040 Latex allergy status; Z91.81 History of falling; Z87.81 Personal history of (healed) traumatic fracture; Z83.3 Family history of diabetes mellitus; Z80.9 Family history of malignant neoplasm, unspecified; Z11.52 Encounter for screening for COVID-19; Z86.0100 Personal history of colon polyps, unspecified
CPT/HCPCS: 51701; 70450; 76937; 80048; 80053; 80061; 81003; 81015; 82607; 82728; 82746; 83036; 83540; 83550; 83735; 84443; 84484; 85025; 85027; 85730; 87070; 87077; 87086; 87186; 87502; 87811; 93005; 93306; 93458; 96361; 96374; 97162; 97164; 97166; 97530; 99152; 99153; 99285; C1769; C1894; Q9967

== ENCOUNTER → 2025-01-09 10:11 | Outpatient (REF) | payer OTHER, MEDICARE, SELFPAY ==
[2025-01-09 10:33] LABS: % Basophils 1.4 % (0-2); % Eosinophils 8.1 % (0-6); % Immature Granulocytes 0.2 % (0-0.5); % Lymphocytes 37.6 % (20.5-51.1); % Monocytes 9.8 % (1.7-9.3); % Neutrophils 42.9 % (42.2-75.2); Absolute Basophils 0.1 10^3/uL (0-0.2); Absolute Eosinophils 0.3 10^3/uL (0-0.7); Absolute Lymphocytes 1.6 10^3/uL (1.2-3.4); Absolute Monocytes 0.4 10^3/uL (0.1-0.6); Absolute Neutrophils 1.8 10^3/uL (1.4-6.5); Hemoglobin 9.4 g/dL (12.0-16.0); Mean Corp Hgb Conc. 33.6 g/dL (33.0-37.0); Mean Corpuscular Hgb 29.1 pg (27.0-31.0); Mean Corpuscular Volume 86.7 fL (81.0-99.0); Mean Platelet Volume 9.1 fL (7.4-10.4); Nucleated Red Blood Cells % 0 %; Platelet Count 249 10^3/uL (130-400); Red Blood Cell Count 3.23 10^6/uL (4.20-5.40); Red Cell Dist. Width 17.8 % (11.5-14.5); White Blood Cell Count 4.2 10^3/uL (4.8-10.8)
== END ==
LOC: OLABP 10:11
PROVIDERS: ATTENDING PHYSICIAN Family Medicine
DX: R26.2 Difficulty in walking, not elsewhere classified (principal); I50.30 Unspecified diastolic (congestive) heart failure; R27.8 Other lack of coordination; I21.4 Non-ST elevation (NSTEMI) myocardial infarction; I48.21 Permanent atrial fibrillation; I10 Essential (primary) hypertension; E78.5 Hyperlipidemia, unspecified; E87.1 Hypo-osmolality and hyponatremia
CPT/HCPCS: 36415; 85025

== ENCOUNTER → 2025-01-10 12:13 | Outpatient (REF) | payer OTHER, MEDICARE, SELFPAY ==
[2025-01-10 14:16] LABS: % Basophils 1.1 % (0-2); % Eosinophils 8.4 % (0-6); % Immature Granulocytes 0.2 % (0-0.5); % Lymphocytes 35.3 % (20.5-51.1); % Monocytes 10.4 % (1.7-9.3); % Neutrophils 44.6 % (42.2-75.2); Absolute Basophils 0.1 10^3/uL (0-0.2); Absolute Eosinophils 0.4 10^3/uL (0-0.7); Absolute Lymphocytes 1.6 10^3/uL (1.2-3.4); Absolute Monocytes 0.5 10^3/uL (0.1-0.6); Absolute Neutrophils 2.1 10^3/uL (1.4-6.5); Hematocrit 28.5 % (37.0-47.0); Hemoglobin 9.4 g/dL (12.0-16.0); Mean Corpuscular Hgb 28.8 pg (27.0-31.0); Mean Corpuscular Volume 87.4 fL (81.0-99.0); Mean Platelet Volume 9.3 fL (7.4-10.4); Nucleated Red Blood Cells % 0 %; Platelet Count 262 10^3/uL (130-400); Red Blood Cell Count 3.26 10^6/uL (4.20-5.40); Red Cell Dist. Width 17.6 % (11.5-14.5); White Blood Cell Count 4.6 10^3/uL (4.8-10.8)
[2025-01-10 14:21] LABS: ALT (SGPT) 11 U/L (0-35); AST (SGOT) 19 U/L (14-36); Alkaline Phosphatase 76 U/L (38-126); Blood Urea Nitrogen 13 mg/dl (7-17); Calcium 8.8 mg/dl (8.4-10.2); Carbon Dioxide 29 mmol/L (22-30); Chloride 103 mmol/L (98-107); Glucose 90 mg/dl (70-99); Potassium 4.8 mmol/L (3.5-5.1); Sodium 136 mmol/L (135-145); Total Bilirubin 0.6 mg/dl (0.2-1.3); Total Protein 5.8 g/dl (6.3-8.2); eGFR > 60.00
== END ==
LOC: OLABP 12:13
PROVIDERS: ATTENDING PHYSICIAN Family Medicine
DX: I21.4 Non-ST elevation (NSTEMI) myocardial infarction (principal); I48.21 Permanent atrial fibrillation; E78.5 Hyperlipidemia, unspecified; I10 Essential (primary) hypertension; E87.1 Hypo-osmolality and hyponatremia
CPT/HCPCS: 36415; 80053; 85025

== ENCOUNTER → 2025-01-20 11:08 | Outpatient (REF) | payer OTHER, MEDICARE, SELFPAY ==
[2025-01-20 12:21] LABS: Blood Urea Nitrogen 17 mg/dl (7-17); Carbon Dioxide 25 mmol/L (22-30); Chloride 105 mmol/L (98-107); Glucose 90 mg/dl (70-99); Potassium 4.4 mmol/L (3.5-5.1); Sodium 138 mmol/L (135-145); eGFR > 60.00
== END ==
LOC: OLABP 11:08
PROVIDERS: ATTENDING PHYSICIAN Family Medicine
DX: I21.4 Non-ST elevation (NSTEMI) myocardial infarction (principal); I48.21 Permanent atrial fibrillation; I10 Essential (primary) hypertension; E78.5 Hyperlipidemia, unspecified; E87.1 Hypo-osmolality and hyponatremia; I95.9 Hypotension, unspecified
CPT/HCPCS: 36415; 80048

== ENCOUNTER → 2025-01-27 10:30 | Outpatient (REF) | payer MEDICARE, OTHER, SELFPAY ==
[2025-01-27 13:58] LABS: Urine Albumin 1+ (Neg - Trace); Urine Bilirubin Negative (Negative); Urine Character Clear (Clear); Urine Color Yellow; Urine Glucose Negative (Negative); Urine Ketone Negative (Negative); Urine Leukocyte 1+ (Negative); Urine Nitrite Positive (Negative); Urine Occult Blood 2+ (Negative); Urine Urobilinogen Negative (Neg - 1+)
[2025-01-27 14:08] LABS: Urine Bacteria Many (Negative); Urine Red Blood Cell 0-2 /HPF (0-2); Urine White Cell 21-25 /HPF (0-5)
== END ==
LOC: OLABP 10:30
PROVIDERS: ATTENDING PHYSICIAN Family Medicine
DX: N30.90 Cystitis, unspecified without hematuria (principal)
CPT/HCPCS: 81003; 81015; 87077; 87086; 87186

== ENCOUNTER → 2025-02-16 04:00 | Outpatient (REF) | payer MEDICARE, OTHER, SELFPAY ==
[2025-02-16 13:17] LABS: Urine Albumin Negative (Neg - Trace); Urine Bilirubin Negative (Negative); Urine Character Clear (Clear); Urine Color Yellow; Urine Glucose Negative (Negative); Urine Ketone Negative (Negative); Urine Leukocyte 2+ (Negative); Urine Nitrite Negative (Negative); Urine Occult Blood 1+ (Negative); Urine Specific Gravity 1.005 (<1.030); Urine Urobilinogen Negative (Neg - 1+)
[2025-02-16 15:18] LABS: Urine Amorphous Seen; Urine Squamous Cell 16-20 /LPF (Few)
[2025-02-16 15:25] LABS: Urine Bacteria Many (Negative); Urine Red Blood Cell 0-2 /HPF (0-2)
== END ==
LOC: OLABP 04:00
PROVIDERS: ATTENDING PHYSICIAN Family Medicine
DX: N30.00 Acute cystitis without hematuria (principal)
CPT/HCPCS: 81003; 81015; 87077; 87086; 87186

== ENCOUNTER → 2025-06-21 09:22 | Outpatient (REF) | payer MEDICARE, OTHER, SELFPAY ==
[2025-06-21 11:01] LABS: ALT (SGPT) 10 U/L (0-35); AST (SGOT) 18 U/L (14-36); Albumin 3.5 g/dl (3.5-5.0); Alkaline Phosphatase 79 U/L (38-126); Blood Urea Nitrogen 16 mg/dl (7-17); Calcium 8.6 mg/dl (8.4-10.2); Carbon Dioxide 27 mmol/L (22-30); Chloride 102 mmol/L (98-107); Glucose 95 mg/dl (70-99); HDL Cholesterol 50 mg/dl; LDL Cholesterol, Calculated 26 mg/dl; Potassium 4.4 mmol/L (3.5-5.1); Sodium 133 mmol/L (135-145); Total Protein 6.3 g/dl (6.3-8.2); Very Low Density Lipoprotein 12 mg/dl (0-30); eGFR > 60.00
== END ==
LOC: OLABLV 09:22
PROVIDERS: ATTENDING PHYSICIAN Family Medicine
DX: N18.31 Chronic kidney disease, stage 3a (principal); E78.2 Mixed hyperlipidemia
CPT/HCPCS: 36415; 80053; 80061

== ENCOUNTER → 2025-09-20 15:30 | Outpatient (REF) | payer MEDICARE, OTHER, SELFPAY ==
[2025-09-21 12:45] LABS: Urine Character Cloudy (Clear)
[2025-09-21 14:01] LABS: Urine White Cell >100 /HPF (0-5)
== END ==
LOC: OLABLV 15:30
PROVIDERS: ATTENDING PHYSICIAN Family Medicine
DX: R82.90 Unspecified abnormal findings in urine (principal)
CPT/HCPCS: 81003; 81015; 87077; 87086